=== PATIENT | female | born 1945 | race Caucasian/White ===

== ENCOUNTER 2018-03-17 06:09 | Day surgery (SDC) | payer BC ==
--- NOTE | 2018-03-14 07:59 | HP ---
DATE OF SURGERY: 03/17/2018 ANTICIPATED PROCEDURE: Screening colonoscopy. HISTORY OF PRESENT ILLNESS: Patient presents for screening. PAST MEDICAL HISTORY: Diabetes. ALLERGIES: PENICILLIN, SULFA. MEDICATIONS: See list. PAST SURGICAL HISTORY: Tubal ligation. Sinus. Bunion. SOCIAL HISTORY: Negative. FAMILY HISTORY: Negative. PHYSICAL EXAMINATION: VITAL SIGNS: Normal. CHEST: Clear. COR: Regular. IMPRESSION: The patient has had polyps before and presents for screening five year follow up.
[2018-03-17] MEDS ORDERED: DEMEROL 50 MG IJ ONE (06:10)
[2018-03-17] MEDS ORDERED: VERSED 5 MG/5 ML IV ONE (06:10)
[2018-03-17] MEDS ORDERED: Lactated Ringers 1,000 ML IV SCH (06:30)
[2018-03-17] MEDS ORDERED: GlucaGen 1 MG ONE (09:00)
[2018-03-17 10:50] VITALS: O2SAT 94
[2018-03-17 11:09] VITALS: BP 143/71; PULSE 71
--- NOTE | 2018-03-18 09:50 | OP ---
SURGERY DATE/TIME: 03/17/2018 0846 PREOPERATIVE DIAGNOSIS: Screening. POSTOPERATIVE DIAGNOSIS: Normal. PROCEDURE: Colonoscopy complete to cecum. SURGEON: Tal Marmolejo M.D. ANESTHESIA: IV sedation, 15 minutes monitored. COMPLICATIONS: None. CONDITION: Stable. INDICATION: A patient requiring evaluation. DESCRIPTION OF PROCEDURE: Taken to endoscopy. Time out performed. Anal digital examination satisfactory. Scope introduced. Scope advanced to the cecum. Base of cecum, ileocecal valve and appendiceal orifice normal. Ascending, hepatic, transverse, splenic, descending, sigmoid, rectum, anus satisfactory. The patient tolerated the procedure satisfactorily.
== END 2018-03-17 10:55 | disposition home or self-care (01) ==
LOC: SDC 06:09
PROVIDERS: ATTEND Surgery
DX: Z12.11 Encounter for screening for malignant neoplasm of colon (principal); Z86.010 Personal history of colon polyps
CPT/HCPCS: 82962; 94250; G0105; J1610; J2175; J2250

== ENCOUNTER 2018-10-18 18:36 | Emergency (ER) | payer MEDICARE, OTHER ==
[2018-10-18] MEDS ORDERED: DUONEB 0.5-3 MG/3 ml Neb IH ONE ×2 (19:06→19:26)
[2018-10-18] MEDS ORDERED: APRESOLINE 20 MG/ML INJ IV ONE (19:08)
[2018-10-18 19:15] LABS: BASOPHIL % 0.5 % (0.0-0.4); Basophil (Absolute #) 0.05 (0-0.4); Eosinophil (Absolute #) 0.33 (0-0.5); Granulocyte Absolute (ANC) 7.06 (1.4-6.9); Granulocytes % 64.6 % (36.0-66.0); Hematocrit 41.9 % (35-47); Hemoglobin 14.3 gm/dl (12.0-16.0); Lymphocyte (Absolute #) 2.69 (1.0-4.6); Lymphocytes % 24.6 % (24.0-44.0); Mean Cell Volume 86.2 fl (78-100); Mean Corpuscular Hemoglobin 29.4 pg (26-32); Mean Corpuscular Hgb Concent. 34.1 g/dl (32-36); Mean Platelet Volume 9.9 fl (6-9.5); Monocytes % 7.3 % (0.0-12.0); Platelet Count 302 K/mm3 (150-450); Red Blood Count 4.86 M/mm3 (4.1-5.4); Red Cell Distribution Width 13.2 % (11.5-14.0); White Blood Count 10.9 K/mm3 (4.0-10.5)
[2018-10-18] MEDS ORDERED: APRESOLINE 20 MG/ML INJ ONE (19:22)
[2018-10-18 19:38] LABS: ALBUMIN 4.4 g/dL (3.5-5.0); ALKALINE PHOSPHATASE 95 U/L (38-126); ANION GAP 12.8 MEQ/L (5-15); BLOOD UREA NITROGEN 10 mg/dL (7-17); CHLORIDE 101 mmol/L (98-107); Calcium 10.3 mg/dL (8.4-10.2); Carbon Dioxide 29 mmol/L (22-30); Creatinine 1 0.62 mg/dL (0.52-1.04); Glucose 128 mg/dL (74-106); MAGNESIUM 1.9 mg/dL (1.6-2.3); NT PRO BNP 500 pg/mL (0-900); SGOT/AST 24 U/L (14-36); SGPT/ALT 16 U/L (0-35); SODIUM 139 mmol/L (137-145); Total Protein 7.6 g/dL (6.3-8.2)
[2018-10-18 19:45] LABS: Appearance CLEAR (CLEAR); Bilirubin NEGATIVE (NEGATIVE); Blood NEGATIVE Ery/ul (0-5); Epithelial Cells RARE /HPF (FEW); Glucose NEGATIVE (NEGATIVE); Ketones NEGATIVE (NEGATIVE); Leukocyte Esterase NEGATIVE (NEGATIVE); Nitrite NEGATIVE (NEGATIVE); Protein,Urine Dip 100 (Negative); Specific Gravity 1.004 (1.005-1.025); Urobilinogen NEGATIVE mg/dL (0-1); WBC 0-2 /HPF (0-5)
[2018-10-18] MEDS ORDERED: Lopressor 50 MG PO STA (21:41)
[2018-10-18] MEDS ORDERED: Lopressor 50 MG ONE (21:45)
[2018-10-18 23:43] VITALS: BP 172/56; PULSE 70
--- NOTE | 2018-10-18 23:47 | ERPHSYRPT ---
- History of Present Illness Historian: patient Exam Limitations: no limitations Patient Subjective Stated Complaint: pt here for a headache that developed into sob and high b/p about an hour ago. no cough or fever, no chest pain Triage Nursing Assessment: pt alert,walked in, resp easy, skin w/d/p. no cough, moves all ext well, no edema Physician History: Pt is a 73 y/o female with a h/o migraines, that developed chest pain and HTN urgency. She suffered from migraines today and she took 2 Imitrex tabs. The headache did not improve, and pt developed SOB and chest pain. She took her BP and her SBP was in the 240s, at that point, pt presented to the ED. Pt denies N /V/D or abdominal pain. She is SOB, and is FRIAS. Pt has no F/C/S. No sick contacts. She has no cardiac history besides HTN. Activities at Onset: none Quality: aching, tightness Location: central Chest Pain Radiation: no radiation Severity of Pain-Max: moderate Severity of Pain-Current: none Modifying Factors: Improves With: rest Associated Symptoms: shortness of breath, headache Prior Chest Pain/Cardiac Workup: no prior chest pain Aspirin Treatment Today: 81 mg x 2 Allergies/Adverse Reactions: adhesive Allergy (Verified 10/18/18 18:46) Penicillins Allergy (Verified 10/18/18 18:46) Hives sulfamethoxazole [From Bactrim] Allergy (Verified 10/18/18 18:46) Hives scopolamine Adverse Reaction (Verified 10/18/18 18:46) confusion Home Medications: Aspirin 81 gm Chew [Baby Aspirin 81 mg Chew] 81 mg PO QPM 12/19/13 [ History] Biotin 1,000 mg PO QPM 12/19/13 [History] Ezetimibe/Simvastatin [Vytorin 10-40 mg Tablet] 1 each PO QPM 12/19/13 [History] Insulin Aspart [NovoLOG Insulin] 40 unit SQ DAILY 12/19/13 [History] Losartan Potassium [Cozaar 100Mg Tablet] 100 mg PO QPM 12/19/13 [History] Metoprolol Succinate 50 mg [Toprol Xl 50 MG] 50 mg PO BID 12/19/13 [ History] Multivitamin [Vitamins For Hair] 1 each PO DAILY 12/19/13 [History] SUMAtriptan succinate [Imitrex] 100 mg PO UD 12/19/13 [History] Calcium Carbonate/Vitamin D3 [Caltrate 600 Plus D3 Tablet] 1 tab PO QPM [History] Alendronate Sodium 70 mg [Fosamax 70 MG] 70 mg PO WEEKLY 02/11/18 [History ] Ergocalciferol (Vitamin D2) [Vitamin D2] 50,000 unit PO Q7D 02/11/18 [History] Insulin Glargine,Hum.rec.anlog [Basaglar Kwikpen U-100] 44 unit SQ HS 02/11/18 [ History] Levothyroxine Sodium 50 Mcg [Synthroid 50 Mcg] 50 mcg PO DAILY 02/11/18 [ History] Paroxetine HCl 20 mg [Paxil 20 MG] 20 mg PO DAILY 02/11/18 [History] Pravastatin Sodium [Pravachol] 80 mg PO DAILY 02/11/18 [History] Hx Tetanus, Diphtheria Vaccination/Date Given: Yes Hx Influenza Vaccination/Date Given: Yes Hx Pneumococcal Vaccination/Date Given: Yes Immunizations Up to Date: Yes - Review of Systems Constitutional: No Fever, No Chills Eyes: No Symptoms Ears, Nose, & Throat: No Symptoms Respiratory: Dyspnea, Dyspnea on Exertion (FRIAS), No Cough Cardiac: No Chest Pain, No Edema, No Syncope Abdominal/Gastrointestinal: No Abdominal Pain, No Nausea, No Vomiting, No Diarrhea Genitourinary Symptoms: No Dysuria Musculoskeletal: No Back Pain, No Neck Pain Neurological: Headache - Past Medical History Pertinent Past Medical History: Yes Neurological History: Migraines ENT History: Cataracts Cardiac History: High Cholesterol, Hypertension Respiratory History: Sleep Apnea Endocrine Medical History: Diabetes Type I, Hypothyroidism Musculoskeletal History: Fractures GI Medical History: No Pertinent History, Other History: No Pertinent History Psycho-Social History: Depression Female Reproductive Disorders: No Pertinent History Other Medical History: does use a c-pap - Past Surgical History Past Surgical History: Yes Neuro Surgical History: No Pertinent History Cardiac: No Pertinent History Respiratory: No Pertinent History Gastrointestinal: No Pertinent History Genitourinary: No Pertinent History Musculoskeletal: No Pertinent History Female Surgical History: Tubal Ligation Other Surgical History: BUNIONS REMOVED CYST REMOVED FROM BACK. 5 surgeries to left ankle, colonoscopy hx of polyps - Social History Smoking Status: Former smoker Exposure to second hand smoke: Yes Drug Use: none Patient Lives Alone: No - Female History Hx Last Menstrual Period: post Hx Now: No - Nursing Vital Signs Nursing Vital Signs: Initial Vital Signs Temperature 97 F 10/18/18 18:37 Pulse Rate 85 10/18/18 18:37 Respiratory Rate 18 10/18/18 18:37 Blood Pressure 211/90 10/18/18 18:37 O2 Sat by Pulse Oximetry 96 10/18/18 18:37 Pain Scale Pain Intensity 5 - Physical Exam General Appearance: no apparent distress, alert Eye Exam: PERRL/EOMI, eyes nml inspection Ears, Nose, Throat Exam: normal ENT inspection, moist mucous membranes Neck Exam: normal inspection, non-tender, supple, full range of motion Respiratory Exam: normal breath sounds, lungs clear, No respiratory distress Cardiovascular Exam: regular rate/rhythm, normal heart sounds Gastrointestinal/Abdomen Exam: soft, No tenderness, No mass Back Exam: normal inspection, No CVA tenderness, No vertebral tenderness Extremity Exam: normal inspection, normal range of motion Neurologic Exam: alert, oriented x 3, cooperative, normal mood/affect, sensation nml, No motor deficits Skin Exam: normal color, warm, dry SpO2: 95 - Radiology Exams Chest X-ray Interpretation: Interpreted by me (No PNA, or PTX. Some vascular prominence) - CT Exams Chest CT Interpretation: Tele-radiologist Report (No PE. No PNA. Scattered fibrosis and scarring) Ordered Tests: Active Orders 24 hr Category Date Time Status EKG-ER Only STAT Care 10/18/18 19:06 Active CHEST 2 VIEWS (PA AND LAT) Stat Exams 10/18/18 19:07 Taken CHEST WITH CONTRAST [CT] Stat Exams 10/18/18 20:14 Taken CBC W DIFF Stat Lab 10/18/18 19:16 Completed CMP Stat Lab 10/18/18 19:16 Completed D-DIMER QUANTITATION Stat Lab 10/18/18 19:16 Completed MAGNESIUM Stat Lab 10/18/18 19:16 Completed NT PRO BNP Stat Lab 10/18/18 19:16 Completed TROPONIN Q3H Lab 10/18/18 19:16 Completed TROPONIN Q3H Lab 10/18/18 22:11 Completed TROPONIN Q3H Lab 10/19/18 01:15 Ordered TROPONIN Q3H Lab 10/19/18 04:15 Ordered TROPONIN Q3H Lab 10/19/18 07:15 Ordered UA W/RFX UR CULTURE Stat Lab 10/18/18 19:45 Completed Respiratory Therapy Assessment DAILY RT 10/18/18 20:04 Completed Medication Summary Discontinued Medications Generic Name Dose Route Start Last Admin Trade Name Janq PRN Reason Stop Dose Admin Albuterol/Ipratropium 3 ml 10/18/18 19:06 10/18/18 19:52 Duoneb 0.5-3 Mg/3 Ml Neb IH 10/18/18 19:07 3 ml STAT ONE Administration Albuterol/Ipratropium Confirm 10/18/18 19:26 Duoneb 0.5-3 Mg/3 Ml Neb Administered 10/18/18 19:27 Dose 3 ml IH .STK-MED ONE Hydralazine HCl 20 mg 10/18/18 19:08 10/18/18 19:25 Apresoline 20 Mg/Ml Inj IV 10/18/18 19:09 20 mg STAT ONE Administration Hydralazine HCl Confirm 10/18/18 19:22 Apresoline 20 Mg/Ml Inj Administered 10/18/18 19:23 Dose 20 mg .ROUTE .STK-MED ONE Metoprolol Tartrate 50 mg 10/18/18 21:41 10/18/18 21:46 Lopressor 50 Mg PO 10/18/18 21:42 50 mg ONCE STA Administration Metoprolol Tartrate Confirm 10/18/18 21:45 Lopressor 50 Mg Administered 10/18/18 21:46 Dose 50 mg .ROUTE .STK-MED ONE Lab/Rad Data: Laboratory Result Diagrams 10/18/18 19:16 10/18/18 19:16 Laboratory Results 10/18/18 10/18/18 10/18/18 Range/Units 22:11 19:45 19:16 WBC (4.0-10.5) K/mm3 RBC (4.1-5.4) M/mm3 Hgb (12.0-16.0) gm/dl Hct (35-47) % MCV (78-100) fl MCH (26-32) pg MCHC (32-36) g/dl RDW (11.5-14.0) % Plt Count (150-450) K/mm3 MPV (6-9.5) fl Gran % (36.0-66.0) % Eos # (Auto) (0-0.5) Absolute Lymphs (auto) (1.0-4.6) Absolute Monos (auto) (0.0-1.3) Lymphocytes % (24.0-44.0) % Monocytes % (0.0-12.0) % Eosinophils % (0.00-5.0) % Basophils % (0.0-0.4) % Absolute Granulocytes (1.4-6.9) Basophils # (0-0.4) D-Dimer (215-500) ng/mL Sodium (137-145) mmol/L Potassium (3.5-5.1) mmol/L Chloride (98-107) mmol/L Carbon Dioxide (22-30) mmol/L Anion Gap (5-15) MEQ/L BUN (7-17) mg/dL Creatinine (0.52-1.04) mg/dL Estimated GFR ML/MIN Glucose (74-106) mg/dL Calcium (8.4-10.2) mg/dL Magnesium (1.6-2.3) mg/dL Total Bilirubin (0.2-1.3) mg/dL AST (14-36) U/L ALT (0-35) U/L Alkaline Phosphatase (38-126) U/L Troponin I < 0.012 < 0.012 (0.000-0.034) ng/mL NT-Pro-B Natriuret Pep (0-900) pg/mL Serum Total Protein (6.3-8.2) g/dL Albumin (3.5-5.0) g/dL Urine Color STRAW (YELLOW) Urine Appearance CLEAR (CLEAR) Urine pH 8.0 (5-6) Ur Specific [place] 1.004 (1.005-1.025) Urine Protein 100 (Negative) Urine Ketones NEGATIVE (NEGATIVE) Urine Blood NEGATIVE (0-5) Juma/ul Urine Nitrite NEGATIVE (NEGATIVE) Urine Bilirubin NEGATIVE (NEGATIVE) Urine Urobilinogen NEGATIVE (0-1) mg/dL Ur Leukocyte Esterase NEGATIVE (NEGATIVE) Urine WBC (Auto) 0-2 (0-5) /HPF Urine RBC (Auto) NONE (0-2) /HPF U Epithel Cells (Auto) RARE (FEW) /HPF Urine Bacteria (Auto) NONE (NEGATIVE) /HPF Urine Culture Reflexed NO (NO) Urine Glucose NEGATIVE (NEGATIVE) mg/dL 10/18/18 10/18/18 10/18/18 Range/Units 19:16 19:16 19:16 WBC 10.9 H (4.0-10.5) K/mm3 RBC 4.86 (4.1-5.4) M/mm3 Hgb 14.3 (12.0-16.0) gm/dl Hct 41.9 (35-47) % MCV 86.2 (78-100) fl MCH 29.4 (26-32) pg MCHC 34.1 (32-36) g/dl RDW 13.2 (11.5-14.0) % Plt Count 302 (150-450) K/mm3 MPV 9.9 H (6-9.5) fl Gran % 64.6 (36.0-66.0) % Eos # (Auto) 0.33 (0-0.5) Absolute Lymphs (auto) 2.69 (1.0-4.6) Absolute Monos (auto) 0.80 (0.0-1.3) Lymphocytes % 24.6 (24.0-44.0) % Monocytes % 7.3 (0.0-12.0) % Eosinophils % 3.0 (0.00-5.0) % Basophils % 0.5 (0.0-0.4) % Absolute Granulocytes 7.06 H (1.4-6.9) Basophils # 0.05 (0-0.4) D-Dimer 619 H* (215-500) ng/mL Sodium 139 (137-145) mmol/L Potassium 4.0 (3.5-5.1) mmol/L Chloride 101 (98-107) mmol/L Carbon Dioxide 29 (22-30) mmol/L Anion Gap 12.8 (5-15) MEQ/L BUN 10 (7-17) mg/dL Creatinine 0.62 (0.52-1.04) mg/dL Estimated GFR > 60.0 ML/MIN Glucose 128 H (74-106) mg/dL Calcium 10.3 H (8.4-10.2) mg/dL Magnesium 1.9 (1.6-2.3) mg/dL Total Bilirubin 0.60 (0.2-1.3) mg/dL AST 24 (14-36) U/L ALT 16 (0-35) U/L Alkaline Phosphatase 95 (38-126) U/L Troponin I (0.000-0.034) ng/mL NT-Pro-B Natriuret Pep 500 (0-900) pg/mL Serum Total Protein 7.6 (6.3-8.2) g/dL Albumin 4.4 (3.5-5.0) g/dL Urine Color (YELLOW) Urine Appearance (CLEAR) Urine pH (5-6) Ur Specific [place] (1.005-1.025) Urine Protein (Negative) Urine Ketones (NEGATIVE) Urine Blood (0-5) Juma/ul Urine Nitrite (NEGATIVE) Urine Bilirubin (NEGATIVE) Urine Urobilinogen (0-1) mg/dL Ur Leukocyte Esterase (NEGATIVE) Urine WBC (Auto) (0-5) /HPF Urine RBC (Auto) (0-2) /HPF U Epithel Cells (Auto) (FEW) /HPF Urine Bacteria (Auto) (NEGATIVE) /HPF Urine Culture Reflexed (NO) Urine Glucose (NEGATIVE) mg/dL - Progress Progress: improved Air Movement: good Progress Note: 10/18/18 23:50 Pt had lab work up that included EKG, labs, troponins and CXR. All were negative. D Dimer was elevated and CT for PE study was done, that showed no PE and no PNA, There was some scarring and fibrosis. Pt did get Hydralazine 20mg IV that helped her, and her home dose of Metoprolol 50mg PO, was given. When second Troponin was negative as well, and pt was stable, she was d/c to home. Pt should f/u with her PCP to adjust her BP meds, for better control. Blood Culture(s) Obtained: No Antibiotics given: No Discussed with : Lissett Will see patient in: office Counseled pt/family regarding: need for follow-up - Departure Departure Disposition: Home Clinical Impression: Hypertensive crisis Condition: Stable Critical Care Time: No Referrals: MARILYN BEACH [Primary Care Provider] - Additional Instructions: F/U with PCP for better BP control, and meds adjustments.
[2018-10-18 23:48] VITALS: O2SAT 95
--- NOTE | 2018-10-19 08:52 | XRAY ---
Indication: Short of breath. Comparison: November 03, 2010. PA/lateral chest hyperinflated and clear. Heart and mediastinal structures within normal limits. Bony thorax intact with minimal degenerative changes. Impression: Nonacute hyperinflated chest.
--- NOTE | 2018-10-19 08:52 | XRAY ---
Indication: Dyspnea on exertion. Hypertension. Headache. Elevated d-dimer. Multiple contiguous axial images obtained through the chest using 80 cc Isovue 370 contrast and PE protocol. Comparison: None There is good opacification of the pulmonary arteries to include the lobar and segmental branches. No filling defect or pulmonary embolus. Heart is not enlarged. Aorta minimally arteriosclerotic without aneurysm/dissection. No pathologic mediastinal/hilar lymphadenopathy. Small hiatal hernia. Examination of the lung parenchyma demonstrates hyperinflated lungs with mild bilateral dependent atelectasis and mild scattered fibrosis/scarring bilaterally. No suspicious pulmonary mass, infiltrate, or effusion. Bony thorax intact with mild degenerative changes throughout the spine. Limited upper abdomen demonstrates mild fatty liver and hepatic/splenic calcified granulomas. Impression: 1. Negative pulmonary embolus. No acute cardiopulmonary abnormalities. 2. Scattered fibrosis/scarring, small hiatal hernia, fatty liver, and evidence for old granulomatous disease. CT DI 19.72
== END 2018-10-19 00:03 | disposition home or self-care (01) ==
LOC: ED 18:36
DX: I16.9 Hypertensive crisis, unspecified (principal); G43.909 Migraine, unspecified, not intractable, without status migrainosus; E10.9 Type 1 diabetes mellitus without complications; E03.9 Hypothyroidism, unspecified; F32.9 Major depressive disorder, single episode, unspecified; Z86.010 Personal history of colon polyps; I10 Essential (primary) hypertension
CPT/HCPCS: 36000; 36415; 71046; 71260; 80053; 81001; 83735; 83880; 84484; 85025; 85379; 93005; 94640; 96374; 99284; J0360; A9270-GY

== ENCOUNTER 2021-09-23 06:20 | Day surgery (SDC) | payer MEDICARE, OTHER ==
[2021-09-23] MEDS ORDERED: Lactated Ringers 1,000 ML IV SCH (06:30)
[2021-09-23] MEDS ORDERED: Xylocaine-Mpf 2% 5 Ml Vial ONE (07:26)
[2021-09-23] MEDS ORDERED: DIPRIVAN 200 MG/20 ML IV ONE (07:26)
[2021-09-23] MEDS ORDERED: Versed 2 MG/2 ML Injection ONE (07:26)
[2021-09-23 08:30] VITALS: O2SAT 97
[2021-09-23 08:38] VITALS: PULSE 62
[2021-09-23 09:00] VITALS: BP 126/57
--- NOTE | 2021-09-23 13:19 | OP ---
SURGERY DATE/TIME: 09/23/2021 0729 PREOPERATIVE DIAGNOSIS: History of colon polyps. POSTOPERATIVE DIAGNOSIS: Mild sigmoid diverticulosis otherwise normal colon. PROCEDURE: Colonoscopy. SURGEON: Dr. Contreras. ANESTHESIA: MAC. Medications given by anesthesia department. HISTORY: The patient is a 76-year-old white female presenting now for colonoscopic evaluation. She reports she had colon polyps removed approximately five years ago. She is here for repeat examination. She was appraised of the risks of the procedure including the risk of perforation, phlebitis, untoward reaction to medication, bleeding and missed lesions. The patient verbalized her understanding and desired to have the procedure performed. DESCRIPTION OF PROCEDURE: The patient was given the medications by the anesthesia department. She had continuous pulse oximetry, ECG monitoring and intermittent blood pressure monitoring during the examination. She was placed in the left lateral decubitus position. A digital rectal examination was performed and revealed normal anal sphincter tone and no masses. The flexible Olympus pediatric colonoscope was used to intubate the rectum. A view of the colon was developed sequentially to the cecum. Upon insertion and withdrawal there was noted a few small diverticula in the sigmoid colon otherwise no mucosal lesions were encountered. The scope was removed from the patient who tolerated the procedure well and was sent back to OP recovery in good condition. The prep was noted to be fair to good.
== END 2021-09-23 09:05 | disposition home or self-care (01) ==
LOC: SDC 06:20
PROVIDERS: ATTEND Family Medicine
DX: K57.30 Diverticulosis of large intestine without perforation or abscess without bleeding (principal); Z09 Encounter for follow-up examination after completed treatment for conditions other than malignant neoplasm; Z86.010 Personal history of colon polyps; E11.9 Type 2 diabetes mellitus without complications
CPT/HCPCS: 82947; 99100; J2250; J2704

== ENCOUNTER 2023-07-02 22:24 | Emergency (ER) | payer MEDICARE, OTHER ==
--- NOTE | 2023-07-02 22:31 | ERPHSYRPT ---
- History of Present Illness Time Seen by Provider: 07/02/23 22:31 Source: patient, family Exam Limitations: no limitations Physician History: This is a 78-year-old overweight white female patient of Dr. 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 When she went to get up she fell injuring her right foot and ankle and having tenderness in her right hip. She was able to walk after she fell. This occurred earlier this evening. Patient did not hit her head. She did not injure her neck. She had no loss of consciousness. Patient has had surgery in her feet and ankles in the past. Patient has a history of gastroesophageal reflux disease, hyperlipidemia, migraine headache, hypothyroidism, hypertension, insulin-dependent diabetes Method of Injury: fell, twisted Occurred: this evening Quality: aching Severity of Pain-Max: mild (Moderate) Severity of Pain-Current: mild (Moderate) Lower Extremities Pain: hip: right, foot: right, ankle: right Modifying Factors: Improves With: movement Associated Symptoms: other (Patient is able to bear weight) Allergies/Adverse Reactions: adhesive Allergy (Verified 07/02/23 22:30) Penicillins Allergy (Verified 07/02/23 22:30) Hives sulfamethoxazole [From Bactrim] Allergy (Verified 07/02/23 22:30) Hives scopolamine Adverse Reaction (Verified 07/02/23 22:30) confusion Home Medications: Aspirin 81 gm Chew [Baby Aspirin 81 mg Chew] 81 mg PO QPM 12/19/13 [History] Biotin 1,000 mg PO QPM 12/19/13 [History] Ezetimibe/Simvastatin [Vytorin 10-40 mg Tablet] 1 each PO DAILY 12/19/13 [History] Insulin Aspart [NovoLOG Insulin] 12 unit SQ TID 12/19/13 [History] Losartan Potassium [Cozaar 100Mg Tablet] 100 mg PO QPM 12/19/13 [History] Metoprolol Succinate 50 mg [Toprol Xl 50 MG] 50 mg PO BID 12/19/13 [History] Multivit-Min/Folic Acid/Biotin [Vitamins For Hair Capsule] 1 each PO DAILY 12/19/13 [History] SUMAtriptan succinate [Imitrex] 100 mg PO UD 12/19/13 [History] Calcium Carbonate/Vitamin D3 [Caltrate 600 Plus D3 Tablet] 1 tab PO QPM 09/27/14 [History] Alendronate Sodium 70 mg [Fosamax 70 MG] 70 mg PO WEEKLY 02/11/18 [History] Ergocalciferol (Vitamin D2) [Vitamin D2] 50,000 unit PO Q7D 02/11/18 [History] Insulin Glargine,Hum.rec.anlog [Basaglar Kwikpen U-100] 44 unit SQ HS 02/11/18 [History] Levothyroxine Sodium 50 Mcg [Synthroid 50 Mcg] 50 mcg PO DAILY 02/11/18 [History] Paroxetine HCl 20 mg [Paxil 20 MG] 20 mg PO DAILY 02/11/18 [History] Pravastatin Sodium [Pravachol] 80 mg PO DAILY 02/11/18 [History] Aripiprazole [Abilify] 5 mg PO DAILY 09/19/21 [History] Famotidine [Pepcid] 40 mg PO DAILY 09/19/21 [History] Furosemide 40 mg [Lasix 40 MG] 40 mg PO DAILY 09/19/21 [History] Gabapentin 200 mg PO DAILY 09/19/21 [History] Omeprazole Magnesium [Prilosec Otc] 20 mg PO DAILY 09/19/21 [History] Potassium Chloride 8 meq PO DAILY 09/19/21 [History] Sildenafil Citrate [Viagra] 25 mg PO DAILY 09/19/21 [History] Tumeric/Ging/Switzer/Oreg/Capryl [Candicidal Capsule] 1 tab PO DAILY 09/19/21 [ History] Hx Tetanus, Diphtheria Vaccination/Date Given: Yes Hx Influenza Vaccination/Date Given: Yes Hx Pneumococcal Vaccination/Date Given: Yes Travel Risk - International Travel Have you traveled outside of the country in past 3 weeks: No - Coronavirus Screening Are you exhibiting any of the following symptoms?: No Close contact with a COVID-19 positive Pt in past 14-21 Days: No - Review of Systems Constitutional: No Symptoms Eyes: No Symptoms Ears, Nose, & Throat: No Symptoms Respiratory: No Symptoms Cardiac: No Symptoms Abdominal/Gastrointestinal: No Symptoms, Appetite Changes Musculoskeletal: Fall, Injury (Right foot and ankle, right hip) Skin: No Symptoms Neurological: No Symptoms Psychological: No Symptoms Endocrine: No Symptoms Hematologic/Lymphatic: No Symptoms Immunological/Allergic: No Symptoms All Other Systems: Reviewed and Negative - Past Medical History Pertinent Past Medical History: Yes Neurological History: Migraines ENT History: Cataracts Cardiac History: High Cholesterol, Hypertension Respiratory History: Other Endocrine Medical History: Diabetes Type I, Hypothyroidism Musculoskeletal History: Arthritis GI Medical History: No Pertinent History, Other History: No Pertinent History Psycho-Social History: Depression Female Reproductive Disorders: No Pertinent History Other Medical History: Pulmonary HTN - Past Surgical History Past Surgical History: Yes Neuro Surgical History: No Pertinent History Cardiac: No Pertinent History Respiratory: No Pertinent History Gastrointestinal: No Pertinent History Genitourinary: No Pertinent History Musculoskeletal: No Pertinent History Female Surgical History: Tubal Ligation Other Surgical History: BUNIONS REMOVED CYST REMOVED FROM BACK. 5 surgeries to left ankle, colonoscopy hx of polyps, EGD - Social History Smoking Status: Former smoker Exposure to second hand smoke: Yes Drug Use: none Patient Lives Alone: No - Nursing Vital Signs Nursing Vital Signs: Initial Vital Signs Temperature 98.1 F 07/02/23 22:31 Pulse Rate 72 07/02/23 22:31 Respiratory Rate 18 07/02/23 22:31 Blood Pressure 172/80 07/02/23 22:31 O2 Sat by Pulse Oximetry 98 07/02/23 22:31 Pain Scale Pain Intensity 7 - Physical Exam General Appearance: no apparent distress, alert, anxiety, obese Eyes, Ears, Nose, Throat Exam: normal ENT inspection, moist mucous membranes Neck Exam: normal inspection, non-tender, supple, full range of motion Cardiovascular/Respiratory Exam: chest non-tender, no respiratory distress Gastrointestinal/Abdominal Exam: non-tender Hips Exam: right: soft tissue tenderness, left: non-tender, bilateral: normal inspection, normal range of motion, no evidence of injury Legs Exam: bilateral leg: non-tender, normal inspection, normal range of motion, no evidence of injury Knees Exam: bilateral knee: non-tender, normal inspection, normal range of motion, no evidence of injury Ankle Exam: right ankle: soft tissue tenderness, left ankle: non-tender, bilateral ankle: normal inspection, normal range of motion, no evidence of injury Foot Exam: right foot: soft tissue tenderness, left foot: non-tender, bilateral foot: normal inspection, normal range of motion, no evidence of injury Neuro/Tendon Exam: normal sensation, normal motor functions, normal tendon functions, responds to pain, no evidence tendon injury Mental Status Exam: alert, oriented x 3, cooperative Skin Exam: normal color, warm, dry SpO2 Interpretation: normal O2 Delivery: Room Air - Course Nursing assessment & vital signs reviewed: Yes Ordered Tests: Active Orders 24 hr Category Date Time Status Cold Application STAT Care 07/02/23 22:39 Active ANKLE (3 VIEWS) Stat Exams 07/02/23 22:29 Taken FOOT (MINIMUM 3 VIEWS) Stat Exams 07/02/23 22:29 Taken HIP UNI (2V) INCL PEL IF DONE Stat Exams 07/02/23 22:41 Ordered - Departure Clinical Impression: Right hip pain, Pain in joint involving right ankle and foot Condition: Stable Critical Care Time: No Referrals: JOSÉ WILLIS DO [Primary Care Provider] - Follow up/PCP as directed Additional Instructions: Ice pack to tender areas 3 times a day for the next 48 hours. If there are no contraindications, may use Tylenol and ibuprofen 3 times a day. If your pain persist beyond 48 hours, you may follow-up with your peanut roaster. The other option is for you to follow-up with the [facility] orthopedic clinic Wednesday through Wednesday 8 AM to 10 AM. It is a walk-in clinic and you do not need to have a scheduled appointment
[2023-07-02 22:49] VITALS: RESP 18; TEMP 98.1
[2023-07-02] MEDS: NORCO 5/325 MG PO ONE (23:08)
[2023-07-02] MEDS ORDERED: NORCO 5/325 MG ONE (23:08)
[2023-07-02 23:16] VITALS: BP 110/53; PULSE 68; O2SAT 96
--- NOTE | 2023-07-03 08:10 | XRAY ---
Indication: Pain following fall. Comparison: None 2 view right hip demonstrates osteopenia. No other bony, articular, or soft tissue abnormalities.
--- NOTE | 2023-07-03 08:10 | XRAY ---
Indication: Pain following fall. Comparison: None 3 view right ankle demonstrates osteopenia, mild soft tissue swelling, and distal 1st metatarsal orthopedic screw. No other bony, articular, or soft tissue abnormalities.
--- NOTE | 2023-07-03 08:12 | XRAY ---
Indication: Pain following fall. Comparison: None 3 nonweightbearing views right foot demonstrates osteopenia and intact distal 1st metatarsal orthopedic screw presumed from bunionectomy. No other bony, articular, or soft tissue abnormalities.
== END 2023-07-02 23:25 | disposition home or self-care (01) ==
LOC: ED 22:24
DX: M25.571 Pain in right ankle and joints of right foot (principal); M25.551 Pain in right hip; E78.5 Hyperlipidemia, unspecified; I10 Essential (primary) hypertension; E10.9 Type 1 diabetes mellitus without complications; Z79.4 Long term (current) use of insulin; Z79.899 Other long term (current) drug therapy
CPT/HCPCS: 73502; 73610; 73630; 99283; A9270-GY

== ENCOUNTER 2024-02-28 15:27 | Observation (INO) | payer MEDICARE, OTHER ==
--- NOTE | 2024-02-28 16:13 | ERPHSYRPT ---
- History of Present Illness Time Seen by Provider: 02/28/24 15:42 Patient Subjective Stated Complaint: C/O fall at home. Patient hit her head and is c/o mid back pain. Indicates her blood sugar dropped after taking 18 units of insulin and not eating. Triage Nursing Assessment: Patient arrived by ambulance. She is wearing a c- collar. She is alert and oriented. No SOB. Skin tone normal. Accucheck per ER glucometer 102 at 1540. Physician History: Patient brought to the ER by EMS after fall at home. Patient states that she took 18 units of insulin and did not eat so her blood sugar dropped and she fell. She hit the back of the head and she thinks that she may have passed out. Patient complains of the mid and low back pain. No other injuries or pain. Patient alert and oriented. Blood sugar normal in the ER. Occurred: just prior to arrival Reason for Fall: fainted Injuries/Pain Location: head, back Loss of Consciousness: brief (seconds) Quality: sharpness Severity of Pain-Max: moderate Severity of Pain-Current: moderate Modifying Factors: Improves With: movement Associated Symptoms (Fall): back pain, lightheadedness, No abdominal pain, No chest pain, No dizziness, No extremity injury, No headache Allergies/Adverse Reactions: adhesive Allergy (Verified 02/28/24 15:41) Penicillins Allergy (Verified 02/28/24 15:41) Hives sulfamethoxazole [From Bactrim] Allergy (Verified 02/28/24 15:41) Hives scopolamine Adverse Reaction (Verified 02/28/24 15:41) confusion Home Medications: Aspirin 81 gm Chew [Baby Aspirin 81 mg Chew] 81 mg PO QPM 12/19/13 [History] Biotin 1,000 mg PO QPM 12/19/13 [History] Ezetimibe/Simvastatin [Vytorin 10-40 mg Tablet] 1 each PO DAILY 12/19/13 [History] Insulin Aspart [NovoLOG Insulin] 12 unit SQ TID 12/19/13 [History] Losartan Potassium [Cozaar 100Mg Tablet] 100 mg PO QPM 12/19/13 [History] Metoprolol Succinate 50 mg [Toprol Xl 50 MG] 50 mg PO BID 12/19/13 [History] Multivit-Min/Folic Acid/Biotin [Vitamins For Hair Capsule] 1 each PO DAILY 12/19/13 [History] SUMAtriptan succinate [Imitrex] 100 mg PO UD 12/19/13 [History] Calcium Carbonate/Vitamin D3 [Caltrate 600 Plus D3 Tablet] 1 tab PO QPM 09/27/14 [History] Alendronate Sodium 70 mg [Fosamax 70 MG] 70 mg PO WEEKLY 02/11/18 [History] Ergocalciferol (Vitamin D2) [Vitamin D2] 50,000 unit PO Q7D 02/11/18 [History] Insulin Glargine,Hum.rec.anlog [Basaglar Kwikpen U-100] 44 unit SQ HS 02/11/18 [History] Levothyroxine Sodium 50 Mcg [Synthroid 50 Mcg] 50 mcg PO DAILY 02/11/18 [History] Paroxetine HCl 20 mg [Paxil 20 MG] 20 mg PO DAILY 02/11/18 [History] Pravastatin Sodium [Pravachol] 80 mg PO DAILY 02/11/18 [History] Aripiprazole [Abilify] 5 mg PO DAILY 09/19/21 [History] Famotidine [Pepcid] 40 mg PO DAILY 09/19/21 [History] Furosemide 40 mg [Lasix 40 MG] 40 mg PO DAILY 09/19/21 [History] Gabapentin 200 mg PO DAILY 09/19/21 [History] Omeprazole Magnesium [Prilosec Otc] 20 mg PO DAILY 09/19/21 [History] Potassium Chloride 8 meq PO DAILY 09/19/21 [History] Sildenafil Citrate [Viagra] 25 mg PO DAILY 09/19/21 [History] Tumeric/Ging/[place]/Oreg/Capryl [Candicidal Capsule] 1 tab PO DAILY 09/19/21 [History] Hx Tetanus, Diphtheria Vaccination/Date Given: Yes Hx Influenza Vaccination/Date Given: Yes Hx Pneumococcal Vaccination/Date Given: Yes Immunizations Up to Date: Yes Travel Risk - International Travel Have you traveled outside of the country in past 3 weeks: No - Emerging Infectious Disease Are you exhibiting symptoms associated with any current EIDs: No - Review of Systems Constitutional: No Fever, No Chills Eyes: No Symptoms Ears, Nose, & Throat: No Symptoms Respiratory: No Cough, No Dyspnea Cardiac: No Chest Pain, No Edema, No Syncope Abdominal/Gastrointestinal: No Abdominal Pain, No Nausea, No Vomiting, No Diarrhea Genitourinary Symptoms: No Dysuria Musculoskeletal: Back Pain, No Neck Pain Skin: No Rash Neurological: Headache, Other (Possible syncope), No Dizziness, No Focal Weakness, No Sensory Changes Psychological: No Symptoms Endocrine: No Symptoms All Other Systems: Reviewed and Negative - Past Medical History Pertinent Past Medical History: Yes Neurological History: Migraines ENT History: Cataracts Cardiac History: High Cholesterol, Hypertension Respiratory History: Other Endocrine Medical History: Diabetes Type I, Hypothyroidism Musculoskeletal History: Arthritis GI Medical History: No Pertinent History, Other History: No Pertinent History Psycho-Social History: Depression Female Reproductive Disorders: No Pertinent History Other Medical History: Pulmonary HTN - Past Surgical History Past Surgical History: Yes Neuro Surgical History: No Pertinent History Cardiac: No Pertinent History Respiratory: No Pertinent History Gastrointestinal: No Pertinent History Genitourinary: No Pertinent History Musculoskeletal: No Pertinent History Female Surgical History: Tubal Ligation Other Surgical History: BUNIONS REMOVED CYST REMOVED FROM BACK - Social History Smoking Status: Former smoker Exposure to second hand smoke: Yes Drug Use: none Patient Lives Alone: No - Social Determinants of Health Will the patient participate in the screening: Yes Do you worry about a steady place to live?: No Do you have any problems with any of the following?: No known problems In the past 12 months,have you had to go without utilities?: No Transportation Issues: No Has anyone in your support network made you feel unsafe?: No Have you or anyone in your house had to go without enough: No - Nursing Vital Signs Nursing Vital Signs: Initial Vital Signs Temperature 97.6 F 02/28/24 15:27 Pain Scale Pain Intensity 5 - Neeta Coma Score Best Eye Response (Neeta): (4) open spontaneously Best Verbal Response (Neeta): (5) oriented Best Motor Response (Neeta): (6) obeys commands Neeta Total: 15 - Physical Exam General Appearance: no apparent distress, alert Head Injury: no evidence of injury Eye Exam: PERRL/EOMI ENT Exam: airway nml Neck Exam: trachea midline, full range of motion, normal inspection, c-collar in place (C-collar was removed by me in the ER after clinically ruling out cervical injury), other, No focal neuro deficit, No tenderness Respiratory/Chest Exam: normal breath sounds, No chest tenderness, No respiratory distress Cardiovascular Exam: normal heart sounds, regular rate/rhythm Gastrointestinal Exam: soft, No tenderness, No distention, No guarding, No ecchymosis Back Exam: normal inspection, other (Lower thoracic and lumbar area pain with muscle spasm. Painful range of motion. No bony point tenderness. No saddle anesthesia. No signs of cord compression.), No vertebral tenderness Extremity Exam: normal inspection, normal range of motion, pelvis stable, No deformities Neurologic Exam: alert, oriented x 3, cooperative, sensation nml, No motor deficits Skin Exam: normal color, warm, dry SpO2: 97 - Course Nursing assessment & vital signs reviewed: Yes - CT Exams Thoracic Spine CT Interpretation: Other (T4 fracture) Ordered Tests: Active Orders 24 hr Category Date Time Status EKG-ER Only STAT Care 02/28/24 15:49 Active HEAD WITHOUT CONTRAST [CT] Stat Exams 02/28/24 15:48 Completed LUMBAR SPINE W/O [CT] Stat Exams 02/28/24 15:48 Completed THORACIC SPINE W/O CONTRAST [CT] Stat Exams 02/28/24 15:48 Completed CBC W DIFF Stat Lab 02/28/24 17:01 Completed CMP Stat Lab 02/28/24 17:01 Completed POCT GLUCOSE Stat Lab 02/28/24 17:00 Completed TROPONIN Q4H Lab 02/28/24 17:01 Completed TROPONIN Q4H Lab 02/28/24 20:00 Ordered TROPONIN Q4H Lab 02/29/24 00:00 Ordered UA W/RFX UR CULTURE Stat Lab 02/28/24 18:28 Ordered Transfer Order Routine Transfer 02/28/24 Ordered Medication Summary Discontinued Medications Generic Name Dose Route Start Last Admin Trade Name Freq PRN Reason Stop Dose Admin Morphine Sulfate 2 mg 02/28/24 16:48 02/28/24 17:12 Morphine Sulfate 2 Mg/Ml Inj IM 02/28/24 16:49 2 mg STAT ONE Administration Morphine Sulfate Confirm 02/28/24 17:06 Morphine Sulfate 2 Mg/Ml Inj Administered 02/28/24 17:07 Dose 2 mg .ROUTE .STK-MED ONE Morphine Sulfate 2 mg 02/28/24 18:09 02/28/24 18:21 Morphine Sulfate 2 Mg/Ml Inj IV 02/28/24 18:10 2 mg STAT ONE Administration Morphine Sulfate Confirm 02/28/24 18:19 Morphine Sulfate 2 Mg/Ml Inj Administered 02/28/24 18:20 Dose 2 mg .ROUTE .STK-MED ONE Ondansetron HCl 4 mg 02/28/24 16:48 02/28/24 17:08 Zofran 4 Mg/Udtablet Orally Disintegrating PO 02/28/24 16:49 Not Given STAT ONE Ondansetron HCl 4 mg 02/28/24 17:07 02/28/24 17:10 Ondansetron Hcl 4 Mg/2 Ml Vial IV 02/28/24 17:08 4 mg STAT ONE Administration Ondansetron HCl Confirm 02/28/24 17:06 Ondansetron Hcl 4 Mg/2 Ml Vial Administered 02/28/24 17:07 Dose 4 mg .ROUTE .STK-MED ONE Lab/Rad Data: Laboratory Result Diagrams 02/28/24 17:01 02/28/24 17:01 Laboratory Results 02/28/24 02/28/24 02/28/24 Range/Units 17:01 17:01 17:01 WBC 15.1 H (3.98-10.04) x10^3/uL RBC 4.03 (3.93-5.22) x10^6/uL Hgb 11.9 (11.2-15.7) g/dL Hct 36.0 (34.1-44.9) % MCV 89.3 (79.4-94.8) fL MCH 29.5 (25.6-32.2) pg MCHC 33.1 (32.2-35.5) g/dL RDW 12.6 (11.7-14.4) % Plt Count 219 (182-369) x10^3/uL MPV 10.0 (9.4-12.3) fL Gran % 74.9 H (34.0-71.1) % Immature Gran % (Auto) 0.7 H (0.001-0.429) % Nucleat RBC Rel Count 0.0 (0.00-0.2) % Eos # (Auto) 0.31 (0.04-0.36) x10^3/uL Immature Gran # (Auto) 0.10 H (0.001-0.031) x10^3u/L Absolute Lymphs (auto) 2.16 (1.18-3.74) x10^3/uL Absolute Monos (auto) 1.13 H (0.24-0.86) x10^3/uL Absolute Nucleated RBC 0.00 (0.00-0.012) x10^3u/L Lymphocytes % 14.3 L (19.3-51.7) % Monocytes % 7.5 (4.7-12.5) % Eosinophils % 2.1 (0.7-5.8) % Basophils % 0.5 (0.1-1.2) % Absolute Granulocytes 11.28 H (1.56-6.13) x10^3/uL Basophils # 0.08 (0.01-0.08) x10^3/uL Sodium 142 (135-145) mmol/L Potassium 3.6 (3.5-5.1) mmol/L Chloride 103 (98-107) mmol/L Carbon Dioxide 27 (22-30) mmol/L Anion Gap 15.6 H (5-15) MEQ/L BUN 27 H (7-17) mg/dL Creatinine 1.23 H (0.52-1.04) mg/dL Estimated GFR 45.0 ML/MIN Glucose 131 H (74-106) mg/dL POC Glucometer (74 to 106) mg/dL Calcium 9.5 (8.4-10.2) mg/dL Total Bilirubin 0.70 (0.2-1.3) mg/dL AST 36 (14-36) U/L ALT 32 (0-35) U/L Alkaline Phosphatase 70 (38-126) U/L Troponin I < 0.012 (0.000-0.033) ng/mL Serum Total Protein 6.7 (6.3-8.2) g/dL Albumin 4.2 (3.5-5.0) g/dL 02/28/24 Range/Units 17:00 WBC (3.98-10.04) x10^3/uL RBC (3.93-5.22) x10^6/uL Hgb (11.2-15.7) g/dL Hct (34.1-44.9) % MCV (79.4-94.8) fL MCH (25.6-32.2) pg MCHC (32.2-35.5) g/dL RDW (11.7-14.4) % Plt Count (182-369) x10^3/uL MPV (9.4-12.3) fL Gran % (34.0-71.1) % Immature Gran % (Auto) (0.001-0.429) % Nucleat RBC Rel Count (0.00-0.2) % Eos # (Auto) (0.04-0.36) x10^3/uL Immature Gran # (Auto) (0.001-0.031) x10^3u/L Absolute Lymphs (auto) (1.18-3.74) x10^3/uL Absolute Monos (auto) (0.24-0.86) x10^3/uL Absolute Nucleated RBC (0.00-0.012) x10^3u/L Lymphocytes % (19.3-51.7) % Monocytes % (4.7-12.5) % Eosinophils % (0.7-5.8) % Basophils % (0.1-1.2) % Absolute Granulocytes (1.56-6.13) x10^3/uL Basophils # (0.01-0.08) x10^3/uL Sodium (135-145) mmol/L Potassium (3.5-5.1) mmol/L Chloride (98-107) mmol/L Carbon Dioxide (22-30) mmol/L Anion Gap (5-15) MEQ/L BUN (7-17) mg/dL Creatinine (0.52-1.04) mg/dL Estimated GFR ML/MIN Glucose (74-106) mg/dL POC Glucometer 122 H (74 to 106) mg/dL Calcium (8.4-10.2) mg/dL Total Bilirubin (0.2-1.3) mg/dL AST (14-36) U/L ALT (0-35) U/L Alkaline Phosphatase (38-126) U/L Troponin I (0.000-0.033) ng/mL Serum Total Protein (6.3-8.2) g/dL Albumin (3.5-5.0) g/dL - Progress Progress Note: 02/28/24 18:29 Patient has a persistent pain with acute T4 fracture. I discussed with the hospitalist. Will admit her for pain control Discussed with DrSusy: Other (Discussed with Dr. Mayo. He agreed with admission) Will see patient in: hospital (observation) Counseled pt/family regarding: diagnosis, rad results - Departure Departure Disposition: Observation Clinical Impression: Fall on same level Qualifiers: Encounter type: initial encounter Qualified Code(s): W18.30XA - Fall on same level, unspecified, initial encounter T4 vertebral fracture Qualifiers: Encounter type: initial encounter Fracture morphology: other fracture Condition: Stable Critical Care Time: No Referrals: JOSÉ WILLIS DO [Primary Care Provider] - Follow up/PCP as directed
--- NOTE | 2024-02-28 16:55 | XRAY ---
Indication: Head injury following fall. Multiple contiguous axial images obtained through the head without contrast. Comparison: None Age-appropriate global atrophy and minimal periventricular degenerative micro-ischemia. No acute intracranial hemorrhage, abnormal extra-axial fluid collection, or mass effect. Fourth ventricle is midline without hydrocephalus. Bony calvarium intact. Mild mucosal thickening both ethmoid and left maxillary sinuses without fluid leveling. Mastoid air cells are clear. Impression: Nonacute senile brain. Incidental paranasal sinus disease.
--- NOTE | 2024-02-28 17:01 | XRAY ---
Indication: Pain following fall. Multiple contiguous axial images obtained through the thoracic spine. Sagittal and coronal reformatted images obtained. Comparison: None Osseous structures immobilized consistent with patient's age. Minimal acute fracture superior endplate T4 with less than 25% height loss. No spinal canal or foraminal encroachment. T11 vertebral body demonstrates incidental 2.2 cm hemangioma. Minimal T5-T12 degenerative vacuum disc phenomena. Sagittal and coronal reformatted images demonstrates normal thoracic alignment/kyphosis. Disc spaces maintained. Visualized noncontrasted soft tissues demonstrates bilateral lung dependent atelectasis and mild scattered aortic calcifications. Impression: 1. Acute superior endplate fracture T4 as detailed. 2. Chronic findings including osteopenia, multilevel degenerative vacuum disc phenomena, incidental T11 vertebral hemangioma, and scattered arteriosclerotic disease.
--- NOTE | 2024-02-28 17:03 | XRAY ---
Indication: Pain following fall. Multiple contiguous axial images obtained through the lumbar spine. Sagittal and coronal reformatted images obtained. Comparison: None Osseous structures immobilized consistent with patient's age. No acute fracture or suspicious bony lesions. Minimal/mild broad-based disc bulge at L3-L5 levels and minimal L4-L5 degenerative vacuum disc phenomena. Facets are symmetric with mild/moderate L3-S1 degenerative facet hypertrophy. Sagittal and coronal reformatted images demonstrates normal lumbar lordosis. 2-3 mm degenerative anterolisthesis L4 on L5. No acute compression fracture. Disc spaces maintained. Visualized noncontrasted soft tissues demonstrates mild scattered aortic calcifications, nonobstructing left renal punctate calculus, and tiny hepatic/splenic calcified granulomas. Impression: 1. No acute fracture. 2. Chronic findings including osteopenia, multilevel degenerative spondylosis including minimal grade 1 L4 spondylolisthesis, nonobstructing left renal micro-calculus, arteriosclerotic disease, and old granulomatous disease.
[2024-02-28] MEDS ORDERED: MORPHINE SULFATE 2 MG INJ ONE ×2 (17:06→18:19)
[2024-02-28] MEDS ORDERED: Zofran 4 MG/2 ML VIAL ONE (17:06)
[2024-02-28] MEDS: ZOFRAN ODT 4 MG PO ONE (17:08)
[2024-02-28] MEDS: Zofran 4 MG/2 ML VIAL IV ONE (17:10)
[2024-02-28 17:11] LABS: Absolute Neutrophil Ct (ANC) 11.28 x10^3/uL (1.56-6.13); BASOPHIL % 0.5 % (0.1-1.2); Basophil (Absolute #) 0.08 x10^3/uL (0.01-0.08); Eosinophil % 2.1 % (0.7-5.8); Eosinophil (Absolute #) 0.31 x10^3/uL (0.04-0.36); Hemoglobin 11.9 g/dL (11.2-15.7); IMMATURE GRAN % 0.7 % (0.001-0.429); Lymphocyte (Absolute #) 2.16 x10^3/uL (1.18-3.74); Lymphocytes % 14.3 % (19.3-51.7); Mean Cell Volume 89.3 fL (79.4-94.8); Mean Corpuscular Hemoglobin 29.5 pg (25.6-32.2); Mean Corpuscular Hgb Concent. 33.1 g/dL (32.2-35.5); Monocyte (Absolute #) 1.13 x10^3/uL (0.24-0.86); Monocytes % 7.5 % (4.7-12.5); Neutrophil % 74.9 % (34.0-71.1); Platelet Count 219 x10^3/uL (182-369); Red Blood Count 4.03 x10^6/uL (3.93-5.22); Red Cell Distribution Width 12.6 % (11.7-14.4); White Blood Count 15.1 x10^3/uL (3.98-10.04)
[2024-02-28] MEDS: MORPHINE SULFATE 2 MG INJ IM ONE (17:12)
[2024-02-28 17:27] LABS: ALBUMIN 4.2 g/dL (3.5-5.0); BILIRUBIN,TOTAL 0.7 mg/dL (0.2-1.3); Calcium 9.5 mg/dL (8.4-10.2); Creatinine 1 1.23 mg/dL (0.52-1.04); Total Protein 6.7 g/dL (6.3-8.2)
[2024-02-28 17:49] LABS: Potassium 3.6 mmol/L (3.5-5.1)
[2024-02-28 17:50] LABS: ANION GAP 15.6 MEQ/L (5-15)
[2024-02-28] MEDS: MORPHINE SULFATE 2 MG INJ IV ONE (18:21)
[2024-02-28] MEDS ORDERED: SUMATRIPTAN SUCCINATE 100 MG PO PRN (21:31)
[2024-02-28] MEDS ORDERED: TYLENOL 325 MG PO PRN (21:32)
[2024-02-28] MEDS ORDERED: Docusate Sodium 100 MG PO PRN (21:32)
[2024-02-28] MEDS ORDERED: Zofran 4 MG/2 ML VIAL IV PRN (21:32)
[2024-02-28] MEDS ORDERED: HUMALOG SQ PRN (21:32)
[2024-02-28] MEDS ORDERED: NON-FORMULARY ITEM (Famotidine [Pepcid] 40 MG Tablet) PO SCH (22:00)
[2024-02-28] MEDS ORDERED: NON-FORMULARY ITEM (Insulin Glargine,Hum.Rec.Anlog [Basaglar Kwikpen U-100] 100 UNIT/ML In SQ SCH (22:00)
[2024-02-28] MEDS ORDERED: NON-FORMULARY ITEM (Potassium Chloride [Potassium Chloride] 10 MEQ Tab.Er.Prt) PO SCH (22:00)
--- NOTE | 2024-02-28 22:01 | PCM.HP ---
History of Present Illness - Chief Complaint Chief Complaint: T4 FRACTURE, FALL, BACK PAIN Date: 02/28/24 History of Present Illness: is a 79 year old female with a history of DM and osteoporosis who presented to the ED after fall at home. Patient states that she took 18 units of insulin and did not eat so her blood sugar dropped and she fell. She hit the back of the head and she thinks that she may have passed out. The patient complained of the mid and low back pain. She denied other injuries or pain. Of note, the patient had one additional hypoglycemia episode at home in the last couple of days with a similar pattern (after taking insulin and delaying a meal). She was noted to have persistent pain in the ED and is being admitted for pain control and blood sugar monitoring. - Review of Systems Constitutional: No Symptoms Eyes: No Symptoms Ears, Nose, & Throat: No Symptoms Respiratory: No Symptoms Cardiac: No Symptoms Abdominal/Gastrointestinal: No Symptoms Genitourinary Symptoms: No Symptoms Musculoskeletal: Back Pain, Fall, Injury Skin: No Symptoms Neurological: No Symptoms Psychological: No Symptoms Endocrine: No Symptoms Hematologic/Lymphatic: No Symptoms Immunological/Allergic: No Symptoms All Other Systems: Reviewed and Negative Medications & Allergies Home Medications: Home Medication List SUMAtriptan succinate [Imitrex] 100 mg PO DAILY PRN PRN 12/19/13 [History Confirmed 02/28/24] Alendronate Sodium 70 mg [Fosamax 70 MG] 70 mg PO WEEKLY 02/11/18 [History Confirmed 02/28/24] Ergocalciferol (Vitamin D2) [Vitamin D2] 1.25 mg PO Q7D 02/11/18 [History Confirmed 02/28/24] Paroxetine HCl 20 mg [Paxil 20 MG] 40 mg PO DAILY 02/11/18 [History Confirmed 02/28/24] Famotidine [Pepcid] 40 mg PO HS 09/19/21 [History Confirmed 02/28/24] Furosemide 40 mg [Lasix 40 MG] 80 mg PO DAILY 09/19/21 [History Confirmed 02/28/24] Gabapentin 100 mg PO TID 09/19/21 [History Confirmed 02/28/24] Sildenafil Citrate [Viagra] 25 mg PO TID 09/19/21 [History Confirmed 02/28/24] Atorvastatin Calcium [Lipitor] 40 mg PO DAILY 02/28/24 [History Confirmed 02/28/24] Clopidogrel Bisulfate [PLAVIX Tablet] 75 mg PO DAILY 02/28/24 [History Confirmed 02/28/24] Dextroamphetamine/Amphetamine [Dextroamp-Amphetamin 30 mg Tab] 30 mg PO DAILY 02/28/24 [History Confirmed 02/28/24] Insulin Aspart [NovoLOG Insulin] 18 unit SQ 0800,1200 02/28/24 [History Confirmed 02/28/24] Insulin Aspart [NovoLOG Insulin] 24 unit SQ 1700 02/28/24 [History Confirmed 02/28/24] Insulin Glargine,Hum.rec.anlog [Basaglar Kwikpen U-100] 34 unit SQ HS 02/28/24 [History Confirmed 02/28/24] Metoprolol Tartrate 50 mg [Lopressor 50 MG] 50 mg PO BID 02/28/24 [History Confirmed 02/28/24] Multivitamin with Minerals [Daily Vitamin Formula-Minerals] 1 tab PO DAILY 02/28/24 [History Confirmed 02/28/24] Potassium Chloride 20 meq PO HS 02/28/24 [History Confirmed 02/28/24] Allergies/Adverse Reactions: Allergies Allergy/AdvReac Type Severity Reaction Status Date / Time adhesive Allergy Verified 02/28/24 15:41 Penicillins Allergy Hives Verified 02/28/24 15:41 Sulfa (Sulfonamide Allergy Rash Verified 02/28/24 20:39 Antibiotics) sulfamethoxazole Allergy Hives Verified 02/28/24 15:41 [From Bactrim] scopolamine AdvReac confusion Verified 02/28/24 15:41 - Past Medical History Past Medical History: Yes Neurological History: Migraines ENT History: Cataracts Cardiac History: High Cholesterol, Hypertension Respiratory History: Other Endocrine Medical History: Diabetes Type I, Hypothyroidism Musculoskelatal History: Arthritis GI Medical History: No Pertinent History History: No Pertinent History Pyscho-Social History: Depression Reproductive Disorders: No Pertinent History Comment: Pulmonary HTN - Past Surgical History Past Surgical History: Yes Neuro Surgical History: No Pertinent History Cardiac History: No Pertinent History Respiratory Surgery: No Pertinent History GI Surgical History: No Pertinent History Genitourinary Surgical Hx: No Pertinent History Musculskeletal Surgical Hx: No Pertinent History Female Surgical History: Tubal Ligation Other Surgical History: BUNIONS REMOVED CYST REMOVED FROM BACK - Social History Smoking Status: Never smoker Exposure to second hand smoke: No Alcohol: Rarely Drug Use: none - Social Determinants of Health Will the patient participate in the screening: Yes Do you worry about a steady place to live?: No Do you have any problems with any of the following?: No known problems In the past 12 months,have you had to go without utilities?: No Have you or anyone in your house had to go without enough: No Transportation Issues: No Has anyone in your support network made you feel unsafe?: No Does the patient want assistance with any of the above?: No - Physical Exam Vital Signs: Vital Signs - 24 hr Temp Pulse Resp BP BP Pulse Ox 02/28/24 20:39 97.5 F 76 20 165/70 93 L 02/28/24 19:00 71 19 147/56 95 02/28/24 18:35 97 02/28/24 18:30 68 17 156/64 95 02/28/24 18:26 66 21 148/64 02/28/24 18:25 67 19 02/28/24 18:20 66 21 98 02/28/24 18:10 67 21 97 02/28/24 18:00 66 17 98 02/28/24 17:50 68 25 H 97 02/28/24 17:40 68 26 H 99 02/28/24 17:32 67 18 96 02/28/24 17:00 71 23 169/60 98 02/28/24 16:57 70 24 147/51 97 02/28/24 16:00 156/64 02/28/24 15:30 70 19 176/71 97 02/28/24 15:27 97.6 F General Appearance: no apparent distress, alert Neurologic Exam: alert, oriented x 3, cooperative, 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, normal mood/affect, nml cerebellar function Eye Exam: PERRL/EOMI, eyes nml inspection Ears, Nose, Throat Exam: normal ENT inspection Neck Exam: normal inspection, non-tender, supple, full range of motion Respiratory Exam: normal breath sounds, lungs clear Cardiovascular Exam: regular rate/rhythm, normal heart sounds Gastrointestinal/Abdomen Exam: soft, normal bowel sounds Back Exam: normal range of motion Extremity Exam: normal range of motion, pedal edema (chronic bilateral leg edema noted.) Skin Exam: normal color Results - Labs Lab/Micro Results: Lab Results-Last 24 Hours 02/28/24 02/28/24 02/28/24 Range/Units 17:00 17:01 17:01 WBC 15.1 H (3.98-10.04) x10^3/uL RBC 4.03 (3.93-5.22) x10^6/uL Hgb 11.9 (11.2-15.7) g/dL Hct 36.0 (34.1-44.9) % MCV 89.3 (79.4-94.8) fL MCH 29.5 (25.6-32.2) pg MCHC 33.1 (32.2-35.5) g/dL RDW 12.6 (11.7-14.4) % Plt Count 219 (182-369) x10^3/uL MPV 10.0 (9.4-12.3) fL Gran % 74.9 H (34.0-71.1) % Immature Gran % (Auto) 0.7 H (0.001-0.429) % Nucleat RBC Rel Count 0.0 (0.00-0.2) % Eos # (Auto) 0.31 (0.04-0.36) x10^3/uL Immature Gran # (Auto) 0.10 H (0.001-0.031) x10^3u/L Absolute Lymphs (auto) 2.16 (1.18-3.74) x10^3/uL Absolute Monos (auto) 1.13 H (0.24-0.86) x10^3/uL Absolute Nucleated RBC 0.00 (0.00-0.012) x10^3u/L Lymphocytes % 14.3 L (19.3-51.7) % Monocytes % 7.5 (4.7-12.5) % Eosinophils % 2.1 (0.7-5.8) % Basophils % 0.5 (0.1-1.2) % Absolute Granulocytes 11.28 H (1.56-6.13) x10^3/uL Basophils # 0.08 (0.01-0.08) x10^3/uL Sodium 142 (135-145) mmol/L Potassium 3.6 (3.5-5.1) mmol/L Chloride 103 (98-107) mmol/L Carbon Dioxide 27 (22-30) mmol/L Anion Gap 15.6 H (5-15) MEQ/L BUN 27 H (7-17) mg/dL Creatinine 1.23 H (0.52-1.04) mg/dL Estimated GFR 45.0 ML/MIN Glucose 131 H (74-106) mg/dL POC Glucometer 122 H (74 to 106) mg/dL Calcium 9.5 (8.4-10.2) mg/dL Total Bilirubin 0.70 (0.2-1.3) mg/dL AST 36 (14-36) U/L ALT 32 (0-35) U/L Alkaline Phosphatase 70 (38-126) U/L Troponin I (0.000-0.033) ng/mL Serum Total Protein 6.7 (6.3-8.2) g/dL Albumin 4.2 (3.5-5.0) g/dL 02/28/24 02/28/24 Range/Units 17:01 19:37 WBC (3.98-10.04) x10^3/uL RBC (3.93-5.22) x10^6/uL Hgb (11.2-15.7) g/dL Hct (34.1-44.9) % MCV (79.4-94.8) fL MCH (25.6-32.2) pg MCHC (32.2-35.5) g/dL RDW (11.7-14.4) % Plt Count (182-369) x10^3/uL MPV (9.4-12.3) fL Gran % (34.0-71.1) % Immature Gran % (Auto) (0.001-0.429) % Nucleat RBC Rel Count (0.00-0.2) % Eos # (Auto) (0.04-0.36) x10^3/uL Immature Gran # (Auto) (0.001-0.031) x10^3u/L Absolute Lymphs (auto) (1.18-3.74) x10^3/uL Absolute Monos (auto) (0.24-0.86) x10^3/uL Absolute Nucleated RBC (0.00-0.012) x10^3u/L Lymphocytes % (19.3-51.7) % Monocytes % (4.7-12.5) % Eosinophils % (0.7-5.8) % Basophils % (0.1-1.2) % Absolute Granulocytes (1.56-6.13) x10^3/uL Basophils # (0.01-0.08) x10^3/uL Sodium (135-145) mmol/L Potassium (3.5-5.1) mmol/L Chloride (98-107) mmol/L Carbon Dioxide (22-30) mmol/L Anion Gap (5-15) MEQ/L BUN (7-17) mg/dL Creatinine (0.52-1.04) mg/dL Estimated GFR ML/MIN Glucose (74-106) mg/dL POC Glucometer (74 to 106) mg/dL Calcium (8.4-10.2) mg/dL Total Bilirubin (0.2-1.3) mg/dL AST (14-36) U/L ALT (0-35) U/L Alkaline Phosphatase (38-126) U/L Troponin I < 0.012 < 0.012 (0.000-0.033) ng/mL Serum Total Protein (6.3-8.2) g/dL Albumin (3.5-5.0) g/dL Accuchecks Date 02/28/24 Date 02/28/24 Time 17:01 - Radiology Impressions Radiology Exams & Impressions: Radiology Procedures Category Date Time Status HEAD WITHOUT CONTRAST [CT] Stat Exams 02/28/24 15:48 Completed LUMBAR SPINE W/O [CT] Stat Exams 02/28/24 15:48 Completed THORACIC SPINE W/O CONTRAST [CT] Stat Exams 02/28/24 15:48 Completed Assessment/Plan (1) T4 vertebral fracture Current Visit: Yes Status: Acute Qualifiers: Encounter type: initial encounter Fracture morphology: other fracture Assessment & Plan: Pain control. PT. May need consideration of referral for kyphoplasty as an outpatient. Code(s): S22.049A - UNSP FRACTURE OF FOURTH THORACIC VERTEBRA, INIT FOR CLOS FX (2) Back pain Current Visit: Yes Status: Acute Assessment & Plan: Likely will need a prn narcotic for breakthrough pain at discharge. Code(s): M54.9 - DORSALGIA, UNSPECIFIED (3) Hypoglycemia associated with type 2 diabetes mellitus Current Visit: Yes Status: Acute Assessment & Plan: Advised not to delay meals after insulin administration. Will monitor sugars on ISS and home regimen. Code(s): E11.649 - TYPE 2 DIABETES MELLITUS WITH HYPOGLYCEMIA WITHOUT COMA (4) Fall on same level Current Visit: Yes Status: Acute Qualifiers: Encounter type: initial encounter Qualified Code(s): W18.30XA - Fall on same level, unspecified, initial encounter Assessment & Plan: PT/OT assessment. Code(s): W18.30XA - FALL ON SAME LEVEL, UNSPECIFIED, INITIAL ENCOUNTER Telemedicine Encounter - Telemedicine Encounter Telemedicine Encounter: "The entirety of this encounter was performed via Telemedicine" This visit was performed using real-time audio and video connection between my location and thepatients locationwith the assistance of a surrogateat the patients location. Written or verbal consent was obtained from the patient/guardian to perform this visit [facility]. Any patient questions regarding the telemedicine interaction were answered.
[2024-02-28] MEDS: Neurontin PO SCH (22:02)
[2024-02-28] MEDS: Pepcid 20 MG PO SCH (22:02)
[2024-02-28] MEDS: Klor Con PO SCH (22:02)
[2024-02-28] MEDS: Lopressor 50 MG PO SCH (22:02)
[2024-02-28] MEDS: Lantus Insulin SQ SCH (22:03)
[2024-02-28] MEDS: SILDENAFIL CITRATE 25 MG PO SCH (22:04)
[2024-02-28] MEDS: MORPHINE SULFATE 2 MG INJ IV PRN (22:12)
[2024-02-29] MEDS: NORCO 5/325 MG PO PRN (00:01)
[2024-02-29 00:32] LABS: Appearance Clear (Clear); Bacteria None Seen /HPF (None Seen); Bilirubin Negative (Negative); Blood Negative (Negative); Epithelial Cells None Seen /HPF (None Seen); Glucose, Urine 100 mg/dL (Negative); Ketones Negative (Negative); Leukocyte Esterase Small (Negative); Nitrite Negative (Negative); Ph 5.5 (4.6-8.0); Protein,Urine Dip Negative (Negative); RBC 0-2 /HPF (0-5); Specific Gravity 1.015 (1.005-1.030); Urobilinogen 0.2 mg/dL (0.2)
[2024-02-29] MEDS: ROCEPHIN 1 GM / 100 ML NaCl 1 GM/100 ML IVPB IV SCH ×2 (01:09→22:18)
[2024-02-29 05:02] LABS: Absolute Neutrophil Ct (ANC) 5.11 x10^3/uL (1.56-6.13); BASOPHIL % 0.8 % (0.1-1.2); Basophil (Absolute #) 0.08 x10^3/uL (0.01-0.08); Eosinophil % 4.4 % (0.7-5.8); Eosinophil (Absolute #) 0.42 x10^3/uL (0.04-0.36); Hematocrit 32.8 % (34.1-44.9); Hemoglobin 10.9 g/dL (11.2-15.7); IMMATURE GRAN # 0.03 x10^3u/L (0.001-0.031); IMMATURE GRAN % 0.3 % (0.001-0.429); Lymphocyte (Absolute #) 2.74 x10^3/uL (1.18-3.74); Lymphocytes % 28.8 % (19.3-51.7); Mean Cell Volume 89.6 fL (79.4-94.8); Mean Corpuscular Hemoglobin 29.8 pg (25.6-32.2); Mean Corpuscular Hgb Concent. 33.2 g/dL (32.2-35.5); Mean Platelet Volume 10.2 fL (9.4-12.3); Monocyte (Absolute #) 1.12 x10^3/uL (0.24-0.86); Monocytes % 11.8 % (4.7-12.5); Neutrophil % 53.9 % (34.0-71.1); Platelet Count 206 x10^3/uL (182-369); Red Blood Count 3.66 x10^6/uL (3.93-5.22); Red Cell Distribution Width 12.6 % (11.7-14.4); White Blood Count 9.5 x10^3/uL (3.98-10.04)
[2024-02-29 05:25] LABS: ANION GAP 10.6 MEQ/L (5-15); Calcium 8.5 mg/dL (8.4-10.2); Creatinine 1 1.2 mg/dL (0.52-1.04); EST GLOMERULAR FILTRATION RATE 46.3 ML/MIN; Potassium 3.9 mmol/L (3.5-5.1)
[2024-02-29] MEDS ORDERED: MEDICATION INTERVENTION PO PRN (07:39)
[2024-02-29] MEDS ORDERED: MEDICATION INTERVENTION MC SCH ×2 (07:45)
[2024-02-29] MEDS ORDERED: NON-FORMULARY ITEM (Insulin Aspart** [Novolog Insulin**] 1 UNIT Unit) SQ SCH ×2 (08:00→17:00)
[2024-02-29] MEDS: HUMALOG SQ SCH ×2 (08:07→18:05)
--- NOTE | 2024-02-29 09:43 | PCM.NOTE ---
Date and Time: 02/29/24 0934 Subjective Assessment: 02/29/24 is a 79 year old female with a history of DM and osteoporosis. She presented to the ED on 02/28/24 after fall at home that day. Patient states that she took 18 units of insulin and did not eat so her blood sugar dropped and she fell. She hit the back of the head and she thinks that she may have passed out. The patient complained of the mid and low back pain. She denied other injuries or pain. Of note, the patient had one additional hypoglycemia episode at home in the last couple of days with a similar pattern (after taking insulin and delaying a meal). She was noted to have persistent pain in the ED and is being admitted for pain control and blood sugar monitoring. CT of Thoraccic spine shows T4 fx. She admits to 7/10 pain laying in the bed and worse when getting up. will have pt work with PT today. Narcotic pain medication is helping to control her pain. She admits to having more falls at home here lately and has no equipment such as a rollator. She does have a emergency call device but admits to not using it and was about to sent it back to the [facility]. Urged pt to keep this on her and educated to eat after taking insulin and not delay doing so. Pt does have some BIBI and IVF started. Pt asking for referral to [facility] in [place] for F/u T4 fx. May also need OP PT. Pt denies CP, SOB, abd pain, N/V/D. Likely to d/c tomorrow. - Review of Systems Constitutional: No Fever, No Chills Eyes: No Symptoms Ears, Nose, & Throat: No Symptoms Respiratory: No Cough, No Short Of Breath Cardiac: No Chest Pain, No Edema, No Syncope Abdominal/Gastrointestinal: No Abdominal Pain, No Nausea, No Vomiting, No Diarrhea Genitourinary Symptoms: No Dysuria Musculoskeletal: Back Pain, No Neck Pain Skin: No Rash Neurological: No Dizziness, No Focal Weakness, No Sensory Changes Psychological: No Symptoms Endocrine: No Symptoms Hematologic/Lymphatic: No Symptoms Immunological/Allergic: No Symptoms Objective Exam General Appearance: no apparent distress, alert, obese Neurologic Exam: alert, oriented x 3, cooperative, normal mood/affect, nml cerebellar function, sensation nml, No motor deficits Skin Exam: normal color, warm, dry Eye Exam: PERRL, EOMI, eyes nml inspection Ears, Nose, Throat Exam: normal ENT inspection, pharynx normal, moist mucous membranes Neck Exam: normal inspection, non-tender, supple, full range of motion Respiratory Exam: normal breath sounds, lungs clear, No respiratory distress Cardiovascular Exam: regular rate/rhythm, normal heart sounds Gastrointestinal/Abdomen Exam: soft, No tenderness, No mass Extremity Exam: normal inspection, normal range of motion Back Exam: normal inspection, normal range of motion, decreased range of motion (Thoracic back region), No CVA tenderness, No vertebral tenderness Pelvic Exam: deferred Rectal Exam: deferred Objective Data Vital Signs: Vital Signs - 24 hr Temp Pulse Resp BP BP Pulse Ox 02/29/24 07:45 97.5 F 59 L 16 126/58 92 L 02/29/24 04:00 97.1 F 62 16 108/51 93 L 02/28/24 23:50 97.8 F 72 16 145/67 92 L 02/28/24 20:39 97.5 F 76 20 165/70 93 L 02/28/24 19:00 71 19 147/56 95 02/28/24 18:35 97 02/28/24 18:30 68 17 156/64 95 02/28/24 18:26 66 21 148/64 02/28/24 18:25 67 19 02/28/24 18:20 66 21 98 02/28/24 18:10 67 21 97 02/28/24 18:00 66 17 98 02/28/24 17:50 68 25 H 97 02/28/24 17:40 68 26 H 99 02/28/24 17:32 67 18 96 02/28/24 17:00 71 23 169/60 98 02/28/24 16:57 70 24 147/51 97 02/28/24 16:00 156/64 02/28/24 15:30 70 19 176/71 97 02/28/24 15:27 97.6 F Pain Assessment - Last Documented Pain Intensity 5 Pain Scale Used 0-10 Pain Scale Intake and Output: Intake & Output 02/26/24 02/27/24 02/28/24 02/29/24 11:59 11:59 11:59 11:59 Intake Total 360 Output Total 600 Balance -240 Weight 90.8 kg Lab Results: Lab Results-Last 24 Hours 02/28/24 02/28/24 02/28/24 Range/Units 17:00 17:01 17:01 WBC 15.1 H (3.98-10.04) x10^3/uL RBC 4.03 (3.93-5.22) x10^6/uL Hgb 11.9 (11.2-15.7) g/dL Hct 36.0 (34.1-44.9) % MCV 89.3 (79.4-94.8) fL MCH 29.5 (25.6-32.2) pg MCHC 33.1 (32.2-35.5) g/dL RDW 12.6 (11.7-14.4) % Plt Count 219 (182-369) x10^3/uL MPV 10.0 (9.4-12.3) fL Gran % 74.9 H (34.0-71.1) % Immature Gran % (Auto) 0.7 H (0.001-0.429) % Nucleat RBC Rel Count 0.0 (0.00-0.2) % Eos # (Auto) 0.31 (0.04-0.36) x10^3/uL Immature Gran # (Auto) 0.10 H (0.001-0.031) x10^3u/L Absolute Lymphs (auto) 2.16 (1.18-3.74) x10^3/uL Absolute Monos (auto) 1.13 H (0.24-0.86) x10^3/uL Absolute Nucleated RBC 0.00 (0.00-0.012) x10^3u/L Lymphocytes % 14.3 L (19.3-51.7) % Monocytes % 7.5 (4.7-12.5) % Eosinophils % 2.1 (0.7-5.8) % Basophils % 0.5 (0.1-1.2) % Absolute Granulocytes 11.28 H (1.56-6.13) x10^3/uL Basophils # 0.08 (0.01-0.08) x10^3/uL Sodium 142 (135-145) mmol/L Potassium 3.6 (3.5-5.1) mmol/L Chloride 103 (98-107) mmol/L Carbon Dioxide 27 (22-30) mmol/L Anion Gap 15.6 H (5-15) MEQ/L BUN 27 H (7-17) mg/dL Creatinine 1.23 H (0.52-1.04) mg/dL Estimated GFR 45.0 ML/MIN Glucose 131 H (74-106) mg/dL POC Glucometer 122 H (74 to 106) mg/dL Hemoglobin A1c (4.5-6.0) % Calcium 9.5 (8.4-10.2) mg/dL Total Bilirubin 0.70 (0.2-1.3) mg/dL AST 36 (14-36) U/L ALT 32 (0-35) U/L Alkaline Phosphatase 70 (38-126) U/L Troponin I (0.000-0.033) ng/mL Serum Total Protein 6.7 (6.3-8.2) g/dL Albumin 4.2 (3.5-5.0) g/dL Urine Color (Yellow) Urine Appearance (Clear) Urine pH (4.6-8.0) Ur Specific [place] (1.005-1.030) Urine Protein (Negative) Urine Glucose (UA) (Negative) mg/dL Urine Ketones (Negative) Urine Blood (Negative) Urine Nitrite (Negative) Urine Bilirubin (Negative) Urine Urobilinogen (0.2) mg/dL Ur Leukocyte Esterase (Negative) U Hyaline Cast (Auto) (0-2) /LPF Urine Microscopic RBC (0-5) /HPF Urine Microscopic WBC (0-5) /HPF Ur Epithelial Cells (None Seen) /HPF Urine Bacteria (None Seen) /HPF Urine Culture Reflexed (NO) 02/28/24 02/28/24 02/28/24 Range/Units 17:01 19:37 23:48 WBC (3.98-10.04) x10^3/uL RBC (3.93-5.22) x10^6/uL Hgb (11.2-15.7) g/dL Hct (34.1-44.9) % MCV (79.4-94.8) fL MCH (25.6-32.2) pg MCHC (32.2-35.5) g/dL RDW (11.7-14.4) % Plt Count (182-369) x10^3/uL MPV (9.4-12.3) fL Gran % (34.0-71.1) % Immature Gran % (Auto) (0.001-0.429) % Nucleat RBC Rel Count (0.00-0.2) % Eos # (Auto) (0.04-0.36) x10^3/uL Immature Gran # (Auto) (0.001-0.031) x10^3u/L Absolute Lymphs (auto) (1.18-3.74) x10^3/uL Absolute Monos (auto) (0.24-0.86) x10^3/uL Absolute Nucleated RBC (0.00-0.012) x10^3u/L Lymphocytes % (19.3-51.7) % Monocytes % (4.7-12.5) % Eosinophils % (0.7-5.8) % Basophils % (0.1-1.2) % Absolute Granulocytes (1.56-6.13) x10^3/uL Basophils # (0.01-0.08) x10^3/uL Sodium (135-145) mmol/L Potassium (3.5-5.1) mmol/L Chloride (98-107) mmol/L Carbon Dioxide (22-30) mmol/L Anion Gap (5-15) MEQ/L BUN (7-17) mg/dL Creatinine (0.52-1.04) mg/dL Estimated GFR ML/MIN Glucose (74-106) mg/dL POC Glucometer (74 to 106) mg/dL Hemoglobin A1c (4.5-6.0) % Calcium (8.4-10.2) mg/dL Total Bilirubin (0.2-1.3) mg/dL AST (14-36) U/L ALT (0-35) U/L Alkaline Phosphatase (38-126) U/L Troponin I < 0.012 < 0.012 (0.000-0.033) ng/mL Serum Total Protein (6.3-8.2) g/dL Albumin (3.5-5.0) g/dL Urine Color Yellow (Yellow) Urine Appearance Clear (Clear) Urine pH 5.5 (4.6-8.0) Ur Specific [place] 1.015 (1.005-1.030) Urine Protein Negative (Negative) Urine Glucose (UA) 100 A (Negative) mg/dL Urine Ketones Negative (Negative) Urine Blood Negative (Negative) Urine Nitrite Negative (Negative) Urine Bilirubin Negative (Negative) Urine Urobilinogen 0.2 (0.2) mg/dL Ur Leukocyte Esterase Small A (Negative) U Hyaline Cast (Auto) 11-20 (0-2) /LPF Urine Microscopic RBC 0-2 (0-5) /HPF Urine Microscopic WBC 6-10 A (0-5) /HPF Ur Epithelial Cells None Seen (None Seen) /HPF Urine Bacteria None Seen (None Seen) /HPF Urine Culture Reflexed NO (NO) 02/29/24 02/29/24 02/29/24 Range/Units 00:20 04:58 04:58 WBC 9.5 (3.98-10.04) x10^3/uL RBC 3.66 L (3.93-5.22) x10^6/uL Hgb 10.9 L (11.2-15.7) g/dL Hct 32.8 L (34.1-44.9) % MCV 89.6 (79.4-94.8) fL MCH 29.8 (25.6-32.2) pg MCHC 33.2 (32.2-35.5) g/dL RDW 12.6 (11.7-14.4) % Plt Count 206 (182-369) x10^3/uL MPV 10.2 (9.4-12.3) fL Gran % 53.9 (34.0-71.1) % Immature Gran % (Auto) 0.3 (0.001-0.429) % Nucleat RBC Rel Count 0.0 (0.00-0.2) % Eos # (Auto) 0.42 H (0.04-0.36) x10^3/uL Immature Gran # (Auto) 0.03 (0.001-0.031) x10^3u/L Absolute Lymphs (auto) 2.74 (1.18-3.74) x10^3/uL Absolute Monos (auto) 1.12 H (0.24-0.86) x10^3/uL Absolute Nucleated RBC 0.00 (0.00-0.012) x10^3u/L Lymphocytes % 28.8 (19.3-51.7) % Monocytes % 11.8 (4.7-12.5) % Eosinophils % 4.4 (0.7-5.8) % Basophils % 0.8 (0.1-1.2) % Absolute Granulocytes 5.11 (1.56-6.13) x10^3/uL Basophils # 0.08 (0.01-0.08) x10^3/uL Sodium 137 (135-145) mmol/L Potassium 3.9 (3.5-5.1) mmol/L Chloride 104 (98-107) mmol/L Carbon Dioxide 27 (22-30) mmol/L Anion Gap 10.6 (5-15) MEQ/L BUN 24 H (7-17) mg/dL Creatinine 1.20 H (0.52-1.04) mg/dL Estimated GFR 46.3 ML/MIN Glucose 273 H (74-106) mg/dL POC Glucometer (74 to 106) mg/dL Hemoglobin A1c (4.5-6.0) % Calcium 8.5 (8.4-10.2) mg/dL Total Bilirubin (0.2-1.3) mg/dL AST (14-36) U/L ALT (0-35) U/L Alkaline Phosphatase (38-126) U/L Troponin I < 0.012 (0.000-0.033) ng/mL Serum Total Protein (6.3-8.2) g/dL Albumin (3.5-5.0) g/dL Urine Color (Yellow) Urine Appearance (Clear) Urine pH (4.6-8.0) Ur Specific [place] (1.005-1.030) Urine Protein (Negative) Urine Glucose (UA) (Negative) mg/dL Urine Ketones (Negative) Urine Blood (Negative) Urine Nitrite (Negative) Urine Bilirubin (Negative) Urine Urobilinogen (0.2) mg/dL Ur Leukocyte Esterase (Negative) U Hyaline Cast (Auto) (0-2) /LPF Urine Microscopic RBC (0-5) /HPF Urine Microscopic WBC (0-5) /HPF Ur Epithelial Cells (None Seen) /HPF Urine Bacteria (None Seen) /HPF Urine Culture Reflexed (NO) 02/29/24 Range/Units 04:58 WBC (3.98-10.04) x10^3/uL RBC (3.93-5.22) x10^6/uL Hgb (11.2-15.7) g/dL Hct (34.1-44.9) % MCV (79.4-94.8) fL MCH (25.6-32.2) pg MCHC (32.2-35.5) g/dL RDW (11.7-14.4) % Plt Count (182-369) x10^3/uL MPV (9.4-12.3) fL Gran % (34.0-71.1) % Immature Gran % (Auto) (0.001-0.429) % Nucleat RBC Rel Count (0.00-0.2) % Eos # (Auto) (0.04-0.36) x10^3/uL Immature Gran # (Auto) (0.001-0.031) x10^3u/L Absolute Lymphs (auto) (1.18-3.74) x10^3/uL Absolute Monos (auto) (0.24-0.86) x10^3/uL Absolute Nucleated RBC (0.00-0.012) x10^3u/L Lymphocytes % (19.3-51.7) % Monocytes % (4.7-12.5) % Eosinophils % (0.7-5.8) % Basophils % (0.1-1.2) % Absolute Granulocytes (1.56-6.13) x10^3/uL Basophils # (0.01-0.08) x10^3/uL Sodium (135-145) mmol/L Potassium (3.5-5.1) mmol/L Chloride (98-107) mmol/L Carbon Dioxide (22-30) mmol/L Anion Gap (5-15) MEQ/L BUN (7-17) mg/dL Creatinine (0.52-1.04) mg/dL Estimated GFR ML/MIN Glucose (74-106) mg/dL POC Glucometer (74 to 106) mg/dL Hemoglobin A1c 8.13 H (4.5-6.0) % Calcium (8.4-10.2) mg/dL Total Bilirubin (0.2-1.3) mg/dL AST (14-36) U/L ALT (0-35) U/L Alkaline Phosphatase (38-126) U/L Troponin I (0.000-0.033) ng/mL Serum Total Protein (6.3-8.2) g/dL Albumin (3.5-5.0) g/dL Urine Color (Yellow) Urine Appearance (Clear) Urine pH (4.6-8.0) Ur Specific [place] (1.005-1.030) Urine Protein (Negative) Urine Glucose (UA) (Negative) mg/dL Urine Ketones (Negative) Urine Blood (Negative) Urine Nitrite (Negative) Urine Bilirubin (Negative) Urine Urobilinogen (0.2) mg/dL Ur Leukocyte Esterase (Negative) U Hyaline Cast (Auto) (0-2) /LPF Urine Microscopic RBC (0-5) /HPF Urine Microscopic WBC (0-5) /HPF Ur Epithelial Cells (None Seen) /HPF Urine Bacteria (None Seen) /HPF Urine Culture Reflexed (NO) Radiology Exams: Radiology Procedures Category Date Time Status HEAD WITHOUT CONTRAST [CT] Stat Exams 02/28/24 15:48 Completed LUMBAR SPINE W/O [CT] Stat Exams 02/28/24 15:48 Completed THORACIC SPINE W/O CONTRAST [CT] Stat Exams 02/28/24 15:48 Completed Assessment/Plan (1) T4 vertebral fracture Current Visit: Yes Status: Acute Qualifiers: Encounter type: initial encounter Fracture morphology: other fracture Code(s): S22.049A - UNSP FRACTURE OF FOURTH THORACIC VERTEBRA, INIT FOR CLOS FX (2) Back pain Current Visit: Yes Status: Acute Code(s): M54.9 - DORSALGIA, UNSPECIFIED (3) Hypoglycemia associated with type 2 diabetes mellitus Current Visit: Yes Status: Acute Code(s): E11.649 - TYPE 2 DIABETES MELLITUS WITH HYPOGLYCEMIA WITHOUT COMA (4) Fall on same level Current Visit: Yes Status: Acute Qualifiers: Encounter type: initial encounter Qualified Code(s): W18.30XA - Fall on same level, unspecified, initial encounter Assessment & Plan: 1) T4 vertebral fracture Current Visit: Yes Status: Acute Qualifiers: Encounter type: initial encounter Fracture morphology: other fracture Assessment & Plan: - narcotic pain control. - PT. - May need consideration of referral for kyphoplasty as an outpatient. - appointment made for f/u OP with [facility] Code(s): S22.049A - UNSP FRACTURE OF FOURTH THORACIC VERTEBRA, INIT FOR CLOS FX (2) Back pain Current Visit: Yes Status: Acute Assessment & Plan: -Likely will need a prn narcotic for breakthrough pain at discharge. Code(s): M54.9 - DORSALGIA, UNSPECIFIED (3) Hypoglycemia associated with type 2 diabetes mellitus Current Visit: Yes Status: Acute Assessment & Plan: - Advised not to delay meals after insulin administration. - Will monitor sugars on ISS and home regimen. - A1c 8.13- uncontrolled Code(s): E11.649 - TYPE 2 DIABETES MELLITUS WITH HYPOGLYCEMIA WITHOUT COMA (4) Fall on same level Current Visit: Yes Status: Acute Qualifiers: Encounter type: initial encounter Qualified Code(s): W18.30XA - Fall on same level, unspecified, initial encounter Assessment & Plan: - PT/OT assessment. Code(s): W18.30XA - FALL ON SAME LEVEL, UNSPECIFIED, INITIAL ENCOUNTER Code(s): W18.30XA - FALL ON SAME LEVEL, UNSPECIFIED, INITIAL ENCOUNTER (5) BIBI (acute kidney injury) Current Visit: Yes Status: Acute Assessment & Plan: - Creat 1.20, baseline 0.83 - IVF Code(s): N17.9 - ACUTE KIDNEY FAILURE, UNSPECIFIED (6) Obesity (BMI 30.0-34.9) Current Visit: Yes Status: Chronic Assessment & Plan: - Advised ADA diet and exercise control. Code(s): E66.811 - OBESITY, CLASS 1
[2024-02-29] MEDS: PLAVIX Tablet PO SCH (09:47)
[2024-02-29] MEDS: THERAGRAN MULTIVITAMIN PO SCH (09:47)
[2024-02-29] MEDS: Lasix 40 MG PO SCH (09:47)
[2024-02-29] MEDS: Sodium Chloride 0.9% 1000 ML 1,000 ML IV SCH (09:56)
[2024-02-29] MEDS ORDERED: [UNRECOGNIZED DRUG - OTHER] PO SCH (10:00)
[2024-02-29] MEDS ORDERED: LIPITOR 40MG PO SCH (10:00)
[2024-02-29] MEDS ORDERED: MULTIVITAMIN WITH MINERALS PO SCH (10:00)
[2024-02-29] MEDS ORDERED: NON-FORMULARY ITEM (Dextroamphetamine/Amphetamine [Dextroamp-Amphetamin 30 Mg Tab] 30 MG T PO SCH (10:00)
[2024-02-29] MEDS ORDERED: TYLENOL 325 MG PO PRN (11:59)
[2024-02-29] MEDS: ZOCOR 20MG PO SCH (22:18)
[2024-03-01 05:35] LABS: Hematocrit 35.4 % (34.1-44.9); Hemoglobin 11.4 g/dL (11.2-15.7); Mean Cell Volume 89.8 fL (79.4-94.8); Mean Corpuscular Hemoglobin 28.9 pg (25.6-32.2); Mean Corpuscular Hgb Concent. 32.2 g/dL (32.2-35.5); Mean Platelet Volume 10.4 fL (9.4-12.3); Platelet Count 214 x10^3/uL (182-369); Red Blood Count 3.94 x10^6/uL (3.93-5.22); Red Cell Distribution Width 12.5 % (11.7-14.4)
[2024-03-01 06:03] LABS: ALBUMIN 3.5 g/dL (3.5-5.0); ANION GAP 13.7 MEQ/L (5-15); BILIRUBIN,TOTAL 0.5 mg/dL (0.2-1.3); Calcium 8.4 mg/dL (8.4-10.2); Creatinine 1 1.12 mg/dL (0.52-1.04); EST GLOMERULAR FILTRATION RATE 50.3 ML/MIN; Potassium 4.1 mmol/L (3.5-5.1); Total Protein 6.1 g/dL (6.3-8.2)
[2024-03-01] MEDS ORDERED: MEDICATION INTERVENTION PO PRN (09:15)
[2024-03-01] MEDS ORDERED: MEDICATION INTERVENTION PO SCH (09:20)
[2024-03-01 11:34] VITALS: BP 143/65; PULSE 57; RESP 18; TEMP 97.5; O2SAT 95
--- NOTE | 2024-03-01 11:47 | PCM.DS ---
Discharge Summary Date of Admission: 02/28/24 20:12 Date of Discharge: 03/01/24 Admitting Physician: AURELIA BETHEA MD Primary Care Provider: JOSÉ WILLIS DO Allergies Allergies adhesive Allergy (Verified 02/28/24 15:41) Penicillins Allergy (Verified 02/28/24 15:41) Hives Sulfa (Sulfonamide Antibiotics) Allergy (Verified 02/28/24 20:39) Rash sulfamethoxazole [From Bactrim] Allergy (Verified 02/28/24 15:41) Hives scopolamine Adverse Reaction (Verified 02/28/24 15:41) confusion Hospital Summary - Hospital Course Hospital Course: 02/28 is a 79 year old female with a history of DM and osteoporosis. She presented to the ED on 02/28/24 after fall at home that day. Patient states that she took 18 units of insulin and did not eat so her blood sugar dropped and she fell. She hit the back of the head and she thinks that she may have passed out. The patient complained of the mid and low back pain. She denied other injuries or pain. Of note, the patient had one additional hypoglycemia episode at home in the last couple of days with a similar pattern (after taking insulin and delaying a meal). She was noted to have persistent pain in the ED and is being admitted for pain control and blood sugar monitoring. CT of Thoraccic spine shows T4 fx. She admits to 11/30 pain laying in the bed and worse when getting up. will have pt work with PT today. Narcotic pain medication is helping to control her pain. She admits to having more falls at home here lately and has no equipment such as a rollator. She does have a emergency call device but admits to not using it and was about to sent it back to the [employer]. Urged pt to keep this on her and educated to eat after taking insulin and not delay doing so. Pt does have some BIBI and IVF started. Pt asking for referral to [facility] in [place] for F/u T4 fx. May also need OP PT. Pt denies CP, SOB, abd pain, N/V/D. Likely to d/c tomorrow. 03/01/24 Pt resting in bed. She feels she is ready to go home today. No hypoglycemic episodes since admission. Advised to eat after she takes her insulin and not delay as she has been doing. Back pain controlled with narcotic pain meds. OP f/u appointment made with [facility]. She is asking for [facility] assistance as her family is not home during the day. BP elevated this am but after morning meds and rechecked non-concerning. Hypokalemia resolved. BIBI improved. Will continue 1 more day of antibiotic for mild UTI at d/c. will also d/c with pain meds PRN. Pt denies CP, SOB, abd pain, N/V/D. - Vitals & Intake/Output Vital Signs: Vital Signs Temperature 97.5 F 03/01/24 11:33 Pulse Rate 57 L 03/01/24 11:33 Respiratory Rate 18 03/01/24 11:33 Blood Pressure 143/65 03/01/24 11:33 O2 Sat by Pulse Oximetry 95 03/01/24 11:33 Intake & Output: Intake & Output 02/27/24 02/28/24 02/29/24 03/01/24 11:59 11:59 11:59 11:59 Intake Total 600 2845 Output Total 600 Balance 0 2845 Weight 90.8 kg - Lab Result Diagrams: 03/01/24 04:32 03/01/24 04:32 Lab Results-Last 24 Hrs: Lab Results-Last 24 Hours 02/29/24 03/01/24 03/01/24 Range/Units 17:01 04:32 04:32 WBC 10.0 (3.98-10.04) x10^3/uL RBC 3.94 (3.93-5.22) x10^6/uL Hgb 11.4 (11.2-15.7) g/dL Hct 35.4 (34.1-44.9) % MCV 89.8 (79.4-94.8) fL MCH 28.9 (25.6-32.2) pg MCHC 32.2 (32.2-35.5) g/dL RDW 12.5 (11.7-14.4) % Plt Count 214 (182-369) x10^3/uL MPV 10.4 (9.4-12.3) fL Sodium 137 (135-145) mmol/L Potassium 4.1 (3.5-5.1) mmol/L Chloride 105 (98-107) mmol/L Carbon Dioxide 22 (22-30) mmol/L Anion Gap 13.7 (5-15) MEQ/L BUN 25 H (7-17) mg/dL Creatinine 1.12 H (0.52-1.04) mg/dL Estimated GFR 50.3 ML/MIN Glucose 227 H (74-106) mg/dL POC Glucometer 80 (74 to 106) mg/dL Calcium 8.4 (8.4-10.2) mg/dL Total Bilirubin 0.50 (0.2-1.3) mg/dL AST 28 (14-36) U/L ALT 21 (0-35) U/L Alkaline Phosphatase 82 (38-126) U/L Serum Total Protein 6.1 L (6.3-8.2) g/dL Albumin 3.5 (3.5-5.0) g/dL Micro Results-Entire Visit: Accuchecks Date 03/01/24 Date 03/01/24 Date 02/29/24 Date 02/29/24 Time 21:30 Time 17:29 - Radiology Exams Ordered Rad Exams-Entire Visit: Radiology Procedures Category Date Time Status HEAD WITHOUT CONTRAST [CT] Stat Exams 02/28/24 15:48 Completed LUMBAR SPINE W/O [CT] Stat Exams 02/28/24 15:48 Completed THORACIC SPINE W/O CONTRAST [CT] Stat Exams 02/28/24 15:48 Completed - Procedures and Test Procedures and Tests throughout Hospitalization: Therapy Orders & Screens 02/28/24 21:06 OT Screen per Nursing Assess ONCE Comment: Protocol Order Physician Instructions: Greater than 3 points order OT Admission Screening Reason For Exam: Triggered on Admission Diagnosis: T4 FRACTURE, FALL, BACK PAIN Open Wound/Cellutlitis/Pressure Ulcers: No Acute Fx/ORIF/Change in wt bearing status: No Severe MUSCULOSKELETAL pain: Yes ADL Dysfunction: No Acute CVA w/Hemiparesis/Hemiplegia: No Decreased Functional Mobility/Strength: Yes Sprain/Strain: No Acute Post-op Mobility Dysfunction: No Total Points: 6 PT Screen per Nursing Assess ONCE Comment: Protocol Order Physician Instructions: Greater than 3 points order PT Admission Screenin Reason For Exam: Triggered on Admission Diagnosis: T4 FRACTURE, FALL, BACK PAIN Open Wound/Cellutlitis/Pressure Ulcers: No Acute Fx/ORIF/Change in wt bearing status: No Severe MUSCULOSKELETAL pain: Yes ADL Dysfunction: No Acute CVA w/Hemiparesis/Hemiplegia: No Decreased Functional Mobility/Strength: Yes Sprain/Strain: No Acute Post-op Mobility Dysfunction: No Total Points: 6 02/29/24 07:30 PT Eval & Treat ( Order) ONCE Reason for Eval:: fall with T4 fx Diagnosis: T4 FRACTURE, FALL, BACK PAIN Discharge Exam General Appearance: no apparent distress, alert Neurologic Exam: alert, oriented x 3, cooperative, normal mood/affect, nml cerebellar function, sensation nml, No motor deficits Eye Exam: PERRL, EOMI, eyes nml inspection Ears, Nose, Throat Exam: normal ENT inspection, pharynx normal, moist mucous membranes Neck Exam: normal inspection, non-tender, supple, full range of motion Respiratory Exam: normal breath sounds, lungs clear, No respiratory distress Cardiovascular Exam: regular rate/rhythm, normal heart sounds Gastrointestinal/Abdomen Exam: soft, No tenderness, No mass Pelvic Exam: deferred Rectal Exam: deferred Back Exam: normal inspection, decreased range of motion (Thoracic), No CVA tenderness, No vertebral tenderness Extremity Exam: normal inspection, normal range of motion Skin Exam: normal color, warm, dry Final Diagnosis/Problem List - Final Discharge Diagnosis/Problem (1) T4 vertebral fracture Current Visit: Yes Status: Acute Code(s): S22.049A - UNSP FRACTURE OF FOURTH THORACIC VERTEBRA, INIT FOR CLOS FX (2) Back pain Current Visit: Yes Status: Acute Code(s): M54.9 - DORSALGIA, UNSPECIFIED (3) Hypoglycemia associated with type 2 diabetes mellitus Current Visit: Yes Status: Acute Code(s): E11.649 - TYPE 2 DIABETES MELLITUS WITH HYPOGLYCEMIA WITHOUT COMA (4) Fall on same level Current Visit: Yes Status: Acute Code(s): W18.30XA - FALL ON SAME LEVEL, UNSPECIFIED, INITIAL ENCOUNTER (5) BIBI (acute kidney injury) Current Visit: Yes Status: Acute Code(s): N17.9 - ACUTE KIDNEY FAILURE, UNSPECIFIED (6) Obesity (BMI 30.0-34.9) Current Visit: Yes Status: Chronic Assessment & Plan: 1) T4 vertebral fracture Current Visit: Yes Status: Acute Qualifiers: Encounter type: initial encounter Fracture morphology: other fracture Assessment & Plan: - narcotic pain control. - PT. - May need consideration of referral for kyphoplasty as an outpatient. - appointment made for f/u OP with [facility] - C set up by case management Code(s): S22.049A - UNSP FRACTURE OF FOURTH THORACIC VERTEBRA, INIT FOR CLOS FX (2) Back pain Current Visit: Yes Status: Acute Assessment & Plan: - prn narcotic for breakthrough pain at discharge. Code(s): M54.9 - DORSALGIA, UNSPECIFIED (3) Hypoglycemia associated with type 2 diabetes mellitus Current Visit: Yes Status: Acute Assessment & Plan: - Advised not to delay meals after insulin administration. - Will monitor sugars on ISS and home regimen. - A1c 8.13- uncontrolled - educated on good glycemic control. - F/U with PCP OP for better management Code(s): E11.649 - TYPE 2 DIABETES MELLITUS WITH HYPOGLYCEMIA WITHOUT COMA (4) Fall on same level Current Visit: Yes Status: Acute Qualifiers: Encounter type: initial encounter Qualified Code(s): W18.30XA - Fall on same level, unspecified, initial encounter Assessment & Plan: - PT/OT assessment. Code(s): W18.30XA - FALL ON SAME LEVEL, UNSPECIFIED, INITIAL ENCOUNTER Code(s): W18.30XA - FALL ON SAME LEVEL, UNSPECIFIED, INITIAL ENCOUNTER (5) BIBI (acute kidney injury) Current Visit: Yes Status: Acute Assessment & Plan: - Creat 1.20, baseline 0.83 - IVF 03/01 - Creat 1.12- improved- f/u with PCP OP Code(s): N17.9 - ACUTE KIDNEY FAILURE, UNSPECIFIED (6) Obesity (BMI 30.0-34.9) Current Visit: Yes Status: Chronic Assessment & Plan: - Advised ADA diet and exercise control. Code(s): E66.811 - OBESITY, CLASS 1 Code(s): E66.811 - OBESITY, CLASS 1 (7) UTI (urinary tract infection) Current Visit: Yes Status: Acute Assessment & Plan: - Mild - Ceftriaxone - continue 1 more day of OP antibiotic Code(s): N39.0 - URINARY TRACT INFECTION, SITE NOT SPECIFIED - Discharge Discharge Date: 03/01/24 Disposition: Home, Self-Care Condition: Stable Prescriptions: Continue SUMAtriptan succinate [Imitrex] 100 mg PO DAILY PRN PRN PRN Reason: MIGRAINES Paroxetine HCl 20 mg [Paxil 20 MG] 40 mg PO DAILY Ergocalciferol (Vitamin D2) [Vitamin D2] 1.25 mg PO Q7D Alendronate Sodium 70 mg [Fosamax 70 MG] 70 mg PO WEEKLY Sildenafil Citrate [Viagra] 25 mg PO TID Gabapentin 100 mg PO TID Furosemide 40 mg [Lasix 40 MG] 80 mg PO DAILY Famotidine [Pepcid] 40 mg PO HS Multivitamin with Minerals [Daily Vitamin Formula-Minerals] 1 tab PO DAILY Insulin Aspart [NovoLOG Insulin] 18 unit SQ 0800,1200 Atorvastatin Calcium [Lipitor] 40 mg PO DAILY Insulin Glargine,Hum.rec.anlog [Basaglar Kwikpen U-100] 34 unit SQ HS Metoprolol Tartrate 50 mg [Lopressor 50 MG] 50 mg PO BID Potassium Chloride 20 meq PO HS Clopidogrel Bisulfate [PLAVIX Tablet] 75 mg PO DAILY Dextroamphetamine/Amphetamine [Dextroamp-Amphetamin 30 mg Tab] 30 mg PO DAILY Insulin Aspart [NovoLOG Insulin] 24 unit SQ 1700 Instructions: Fracture in adults - Discharge instructions Additional Instructions: New patient referral was sent to [facility]. Their office will be calling you with an appointment. Follow up with: JOSÉ WILLIS DO [Primary Care Provider] - 03/08/24 3:30 pm Forms: Discharge Instructions
[2024-03-03] MEDS ORDERED: Fosamax 70 MG PO SCH (06:00)
[2024-03-04] MEDS ORDERED: VITAMIN D2 PO SCH (10:00)
== END 2024-03-01 15:13 | disposition home or self-care (01) ==
LOC: ED 15:27 → MED SURG 20:12
PROVIDERS: ADMIT Internal Medicine; ATTEND Internal Medicine
DX: S22.049A Unspecified fracture of fourth thoracic vertebra, initial encounter for closed fracture (principal); M54.9 Dorsalgia, unspecified; E11.649 Type 2 diabetes mellitus with hypoglycemia without coma; W18.30XA Fall on same level, unspecified, initial encounter; N17.9 Acute kidney failure, unspecified; E66.811 Obesity, class 1; N39.0 Urinary tract infection, site not specified; M81.0 Age-related osteoporosis without current pathological fracture; I10 Essential (primary) hypertension; E78.5 Hyperlipidemia, unspecified; Z79.899 Other long term (current) drug therapy
CPT/HCPCS: 36415; 70450; 72128; 72131; 80048; 80053; 81001; 82947; 83036; 84484; 85025; 85027; 93005; 96374; 96375; 96376; 99284; G0378; J0696; J1817; J2270; J2405; A9270-GY

== ENCOUNTER 2024-04-28 16:16 | Inpatient (IN) | payer MEDICARE, OTHER ==
--- NOTE | 2024-04-28 16:24 | ERPHSYRPT ---
- History of Present Illness Source: patient, family, EMS Exam Limitations: no limitations Timing/Duration: day(s) (3 days), worse (Symptoms worse today) Severity: moderate Associated Symptoms: nausea (Lethargy), vomiting, loss of appetite, weakness, other, No abdominal pain, No shortness of breath Hx Tetanus, Diphtheria Vaccination/Date Given: Yes Hx Influenza Vaccination/Date Given: Yes Hx Pneumococcal Vaccination/Date Given: Yes <AGUSTIN AYALA - Last Filed: 04/28/24 19:15> <RAFFAELE ORELLANA - Last Filed: 04/29/24 06:14> - History of Present Illness Time Seen by Provider: 04/28/24 16:24 Physician History: This is a 79-year-old white female patient of Dr. Chaney who was brought to the emergency department by the assistant designer service. Patient has been vomiting for 3 days and today was more confused and had lethargy and the family called the paramedics to transport the patient to the hospital. [facility] report stated that the blood sugar was 495. The patient, had a fractured C-spine of couple weeks ago and has a neck/back brace in place. Patient has no complaints of pain. However she is lethargic but arousable. She has a history of insulin- dependent diabetes, gastroesophageal reflux disease, hyperlipidemia, osteoporosis, hypertension. Narcan is listed on her medication list. (AGUSTIN AYALA) Allergies/Adverse Reactions: adhesive Allergy (Verified 04/28/24 16:41) Penicillins Allergy (Verified 04/28/24 16:41) Hives Sulfa (Sulfonamide Antibiotics) Allergy (Verified 04/28/24 16:41) Rash sulfamethoxazole [From Bactrim] Allergy (Verified 04/28/24 16:41) Hives scopolamine Adverse Reaction (Verified 04/28/24 16:41) confusion Home Medications: SUMAtriptan succinate [Imitrex] 100 mg PO DAILY PRN PRN 12/19/13 [History] Alendronate Sodium 70 mg [Fosamax 70 MG] 70 mg PO WEEKLY 02/11/18 [History] Ergocalciferol (Vitamin D2) [Vitamin D2] 1.25 mg PO Q7D 02/11/18 [History] Paroxetine HCl 20 mg [Paxil 20 MG] 40 mg PO DAILY 02/11/18 [History] Famotidine [Pepcid] 40 mg PO HS 09/19/21 [History] Furosemide 40 mg [Lasix 40 MG] 80 mg PO DAILY 09/19/21 [History] Gabapentin 100 mg PO TID 09/19/21 [History] Sildenafil Citrate [Viagra] 25 mg PO TID 09/19/21 [History] Atorvastatin Calcium [Lipitor] 40 mg PO DAILY 02/28/24 [History] Clopidogrel Bisulfate [PLAVIX Tablet] 75 mg PO DAILY 02/28/24 [History] Dextroamphetamine/Amphetamine [Dextroamp-Amphetamin 30 mg Tab] 30 mg PO DAILY 02/28/24 [History] Insulin Aspart [NovoLOG Insulin] 18 unit SQ 0800,1200 02/28/24 [History] Insulin Aspart [NovoLOG Insulin] 24 unit SQ 1700 02/28/24 [History] Insulin Glargine,Hum.rec.anlog [Basaglar Kwikpen U-100] 34 unit SQ HS 02/28/24 [History] Metoprolol Tartrate 50 mg [Lopressor 50 MG] 50 mg PO BID 02/28/24 [History] Multivitamin with Minerals [Daily Vitamin Formula-Minerals] 1 tab PO DAILY 02/28/24 [History] Potassium Chloride 20 meq PO HS 02/28/24 [History] Travel Risk - International Travel Have you traveled outside of the country in past 3 weeks: No - Emerging Infectious Disease Are you exhibiting symptoms associated with any current EIDs: No Symptoms: Vomitting <AGUSTIN AYALA - Last Filed: 04/28/24 19:15> - Review of Systems Constitutional: Lethargy, Weakness Eyes: No Symptoms Ears, Nose, & Throat: No Symptoms Respiratory: No Symptoms Cardiac: No Symptoms Abdominal/Gastrointestinal: Nausea, Vomiting, Appetite Changes, No Abdominal Pain Musculoskeletal: No Symptoms Skin: No Symptoms Neurological: Lethargy Psychological: No Symptoms Endocrine: No Symptoms Hematologic/Lymphatic: No Symptoms Immunological/Allergic: No Symptoms All Other Systems: Reviewed and Negative <AGUSTIN AYALA - Last Filed: 04/28/24 19:15> - Past Medical History Pertinent Past Medical History: Yes Neurological History: Migraines ENT History: Cataracts Cardiac History: High Cholesterol, Hypertension Respiratory History: Other Endocrine Medical History: Diabetes Type I, Hypothyroidism Musculoskeletal History: Arthritis GI Medical History: No Pertinent History History: No Pertinent History Psycho-Social History: Depression Female Reproductive Disorders: No Pertinent History Other Medical History: Pulmonary HTN - Past Surgical History Past Surgical History: Yes Neuro Surgical History: No Pertinent History Cardiac: No Pertinent History Respiratory: No Pertinent History Gastrointestinal: No Pertinent History Genitourinary: No Pertinent History Musculoskeletal: No Pertinent History Female Surgical History: Tubal Ligation Other Surgical History: BUNIONS REMOVED CYST REMOVED FROM BACK - Social History Smoking Status: Never smoker Exposure to second hand smoke: No Drug Use: none Patient Lives Alone: No - Social Determinants of Health Will the patient participate in the screening: Yes Do you worry about a steady place to live?: No In the past 12 months,have you had to go without utilities?: No Transportation Issues: No Has anyone in your support network made you feel unsafe?: No Have you or anyone in your house had to go without enough: No <AGUSTIN AYALA - Last Filed: 04/28/24 19:15> - Physical Exam General Appearance: moderate distress, lethargy Eye Exam: PERRL/EOMI, eyes nml inspection Ears, Nose, Throat Exam: normal ENT inspection, dry mucous membranes Neck Exam: normal inspection, non-tender, supple, full range of motion Respiratory Exam: normal breath sounds, lungs clear, airway intact, No chest tenderness, No respiratory distress Cardiovascular Exam: regular rate/rhythm, normal heart sounds, normal peripheral pulses Gastrointestinal/Abdomen Exam: soft, normal bowel sounds, No tenderness Pelvic Exam: not done Rectal Exam: not done Back Exam: normal inspection, normal range of motion, No CVA tenderness, No vertebral tenderness Extremity Exam: normal inspection, normal range of motion, pelvis stable Neurologic Exam: confusion, other (Patient confused with lethargy) Lymphatic Exam: No adenopathy SpO2 Interpretation: ABG ordered, O2 applied O2 Delivery: Room Air <AGUSTIN AYALA - Last Filed: 04/28/24 19:15> - Nursing Vital Signs Nursing Vital Signs: Initial Vital Signs Temperature 97.4 F 04/28/24 16:21 Pulse Rate 90 04/28/24 16:21 Respiratory Rate 20 04/28/24 16:21 Blood Pressure 120/64 04/28/24 16:21 Pain Scale Pain Intensity 0 - Course Nursing assessment & vital signs reviewed: Yes EKG Interpreted by Me: RATE (88), Sinus Rhythm, NORMAL AXIS, NORMAL INTERVALS, NORMAL QRS, Other (No acute ischemic changes on today's twelve-lead EKG.) <AGUSTIN AYALA - Last Filed: 04/28/24 19:15> Ordered Tests: Active Orders 24 hr Category Date Time Status Admit as Inpatient ROUTINE Care 04/28/24 22:21 Active Call Admit Doctor for Orders ON ADMISSION Care 04/28/24 22:21 Active Criminal Investigator Customs STAT Care 04/28/24 16:24 Completed Code Status Order ROUTINE Care 04/28/24 22:21 Active Rosas [Catheter-Odell Rosas] STAT Care 04/28/24 17:48 Completed IV Insertion STAT Care 04/28/24 16:24 Completed POCT Glucose Check ONCE Care 04/28/24 16:24 Completed Pulse Oximetry (ED) STAT Care 04/28/24 16:24 Completed Telemetry q6h Care 04/28/24 22:21 Active NPO Diet 04/28/24 22:22 Active CHEST 1 VIEW (PORTABLE) Stat Exams 04/28/24 18:29 Taken HEAD WITHOUT CONTRAST [CT] Stat Exams 04/28/24 18:27 Taken ARTERIAL BLOOD GASES Stat Lab 04/28/24 19:21 Completed CBC W DIFF Stat Lab 04/28/24 16:40 Completed CMP Stat Lab 04/28/24 16:40 Completed CULTURE,URINE Stat Lab 04/28/24 18:00 Received Glucose Stat Lab 04/28/24 20:05 Completed Lactic Acid Routine Lab 04/28/24 21:30 Completed Lactic Acid Stat Lab 04/28/24 18:44 Completed Lactic Acid Urgent Lab 04/28/24 16:38 Completed MAGNESIUM Stat Lab 04/28/24 16:40 Completed MONO SCREEN Stat Lab 04/28/24 16:40 Completed POCT GLUCOSE Stat Lab 04/28/24 22:11 Completed TROPONIN Q4H Lab 04/28/24 18:30 Completed TROPONIN Q4H Lab 04/28/24 21:40 Completed UA W/RFX UR CULTURE Stat Lab 04/28/24 18:00 Completed Medication Summary Generic Name Dose Route Start Last Admin Trade Name Freq PRN Reason Stop Dose Admin Acetaminophen 650 mg 04/28/24 22:52 Acetaminophen 325 Mg Tablet PO 05/28/24 22:51 Q6H PRN PRN PAIN AND/OR FEVER Heparin Sodium (Beef Lung) 5,000 unit 04/29/24 06:00 04/29/24 05:20 Heparin 5000 Units/0.5 Ml 5,000 Unit/0.5 Ml Syr SQ 05/29/24 05:59 5,000 unit Q8HT OLGA LIDIA Administration INSULIN REGULAR IN 0.9 % NACL 100 unit in 100 mls @ 9.072 mls/hr 04/28/24 18:26 04/29/24 05:19 Myxredlin 100 Unit/100 Ml Bag IV 05/28/24 18:25 0.13 unit/kg/hr .Q11H2M PRN 12 mls/hr HYPERGLYCEMIA Titration Protocol 0.1 UNIT/KG/HR Sodium Chloride 1,000 mls @ 999 mls/hr 04/29/24 03:00 04/29/24 02:53 Sodium Chloride 0.9% 1000 Ml IV 04/29/24 04:00 999 mls/hr .Q1H1M OLGA LIDIA Administration Potassium Chloride/Sodium Chloride 1,000 mls @ 250 mls/hr 04/29/24 03:00 04/29/24 03:53 Sodium Chloride 0.45% W/ 20 Meq Kcl IV 05/29/24 02:59 250 mls/hr .Q4H OLGA LIDIA Administration Potassium Chloride/Dextrose/Sod Cl 1,000 mls @ 250 mls/hr 04/29/24 04:30 04/29/24 04:10 D5w/0.45ns W/ 20meq Kcl 1000 Ml IV 05/29/24 04:29 250 mls/hr .Q4H OLGA LIDIA Administration Ondansetron HCl 4 mg 04/28/24 22:52 Ondansetron Hcl 4 Mg/2 Ml Vial IV 05/28/24 22:51 Q6H PRN PRN NAUSEA/VOMITING Discontinued Medications Generic Name Dose Route Start Last Admin Trade Name Miguelina PRN Reason Stop Dose Admin Calcium Gluconate 1,000 mg 04/28/24 17:21 04/28/24 17:38 Calcium Gluconate 1000 Mg/10 Ml Vial IV 04/28/24 17:22 1,000 mg STAT ONE Administration Calcium Gluconate Confirm 04/28/24 17:34 Calcium Gluconate 1000 Mg/10 Ml Vial Administered 04/28/24 17:35 Dose 1,000 mg IV .STK-MED ONE Furosemide 40 mg 04/28/24 17:23 04/28/24 17:37 Furosemide 40 Mg/4 Ml Vial IV 04/28/24 17:24 40 mg STAT ONE Administration Furosemide Confirm 04/28/24 17:35 Furosemide 40 Mg/4 Ml Vial Administered 04/28/24 17:36 Dose 40 mg .ROUTE .STK-MED ONE Sodium Chloride 1,000 mls @ 999 mls/hr 04/28/24 16:24 04/28/24 18:02 Sodium Chloride 0.9% 1000 Ml IV 04/28/24 17:24 Infused .Q1H1M STA Infusion Sodium Chloride Confirm 04/28/24 16:43 Sodium Chloride 0.9% 1000 Ml Administered 04/28/24 16:44 Dose 1,000 mls @ ud .ROUTE .STK-MED ONE Sodium Chloride 1,000 mls @ 999 mls/hr 04/28/24 20:37 04/28/24 20:45 Sodium Chloride 0.9% 1000 Ml IV 04/28/24 21:37 999 mls/hr .Q1H1M STA Administration Sodium Chloride Confirm 04/28/24 20:41 Sodium Chloride 0.9% 1000 Ml Administered 04/28/24 20:42 Dose 1,000 mls @ ud .ROUTE .STK-MED ONE Sodium Chloride 1,000 mls @ 250 mls/hr 04/28/24 23:00 04/28/24 23:05 Sodium Chloride 0.45% 1000 Ml IV 05/28/24 22:59 250 mls/hr .Q4H OLGA LIDIA Administration Sodium Chloride Confirm 04/28/24 23:04 Sodium Chloride 0.45% 1000 Ml Administered 04/28/24 23:05 Dose 1,000 mls @ ud IV .STK-MED ONE Insulin Human Regular 18 unit 04/28/24 17:20 04/28/24 17:38 Insulin Regular, Human 1 Unit IV 04/28/24 17:21 18 unit STAT ONE Administration Insulin Human Regular Confirm 04/28/24 17:35 Insulin Regular, Human 1 Unit Administered 04/28/24 17:36 Dose 18 unit .ROUTE .STK-MED ONE Ondansetron HCl 4 mg 04/28/24 16:24 04/28/24 16:48 Ondansetron Hcl 4 Mg/2 Ml Vial IV 04/28/24 16:25 4 mg STAT ONE Administration Ondansetron HCl Confirm 04/28/24 16:43 Ondansetron Hcl 4 Mg/2 Ml Vial Administered 04/28/24 16:44 Dose 4 mg .ROUTE .STK-MED ONE Pantoprazole Sodium 40 mg 04/28/24 18:26 04/28/24 18:34 Pantoprazole 40 Mg Vial IV 04/28/24 18:27 40 mg STAT ONE Administration Pantoprazole Sodium Confirm 04/28/24 18:32 Pantoprazole 40 Mg Vial Administered 04/28/24 18:33 Dose 40 mg IV .STK-MED ONE Lab/Rad Data: Laboratory Result Diagrams 04/28/24 16:40 04/28/24 21:40 Laboratory Results 04/28/24 04/28/24 04/28/24 Range/Units 22:11 21:40 21:40 WBC (3.98-10.04) x10^3/uL RBC (3.93-5.22) x10^6/uL Hgb (11.2-15.7) g/dL Hct (34.1-44.9) % MCV (79.4-94.8) fL MCH (25.6-32.2) pg MCHC (32.2-35.5) g/dL RDW (11.7-14.4) % Plt Count (182-369) x10^3/uL MPV (9.4-12.3) fL Gran % (34.0-71.1) % Immature Gran % (Auto) (0.001-0.429) % Nucleat RBC Rel Count (0.00-0.2) % Eos # (Auto) (0.04-0.36) x10^3/uL Immature Gran # (Auto) (0.001-0.031) x10^3u/L Absolute Lymphs (auto) (1.18-3.74) x10^3/uL Absolute Monos (auto) (0.24-0.86) x10^3/uL Absolute Nucleated RBC (0.00-0.012) x10^3u/L Lymphocytes % (19.3-51.7) % Monocytes % (4.7-12.5) % Eosinophils % (0.7-5.8) % Basophils % (0.1-1.2) % Absolute Granulocytes (1.56-6.13) x10^3/uL Basophils # (0.01-0.08) x10^3/uL Puncture Site pCO2 (35-45) mmHg pO2 (75-100) mmHg Base Excess (-2.0-2.0) O2 Saturation (94-100) g/dF ABG pH (7.35-7.45) ABG HCO3 (22-28) ABG O2 Sat (Measured) (95-100) % Emanuel Test A-a Gradient a/A Ratio Hemoglobin Carboxyhemoglobin (0.0-6.9) % THgb Methemoglobin (1.4-1.5) % Temperature C POC O2 Flow Rate % Sodium 138 (135-145) mmol/L Potassium 4.3 D (3.5-5.1) mmol/L Chloride 102 (98-107) mmol/L Carbon Dioxide 7 L* (22-30) mmol/L Anion Gap 33.4 H BUN 55 H (7-17) mg/dL Creatinine 1.76 H (0.52-1.04) mg/dL Estimated GFR 29.3 ML/MIN Glucose 626 H* (74-106) mg/dL POC Glucometer 533 H* (50 to 500) mg/dL Lactic Acid (0.4-2.0) Calcium 9.1 (8.4-10.2) mg/dL Magnesium (1.6-2.3) mg/dL Total Bilirubin (0.2-1.3) mg/dL AST (14-36) U/L ALT (0-35) U/L Alkaline Phosphatase (38-126) U/L Ammonia (9-30) umol/L Troponin I 0.050 H* (0.000-0.033) ng/mL Serum Total Protein (6.3-8.2) g/dL Albumin (3.5-5.0) g/dL Urine Color (Yellow) Urine Appearance (Clear) Urine pH (4.6-8.0) Ur Specific Seguin (1.005-1.030) Urine Protein (Negative) Urine Glucose (UA) (Negative) mg/dL Urine Ketones (Negative) Urine Blood (Negative) Urine Nitrite (Negative) Urine Bilirubin (Negative) Urine Urobilinogen (0.2) mg/dL Ur Leukocyte Esterase (Negative) U Hyaline Cast (Auto) (0-2) /LPF Urine Microscopic RBC (0-5) /HPF Urine Microscopic WBC (0-5) /HPF Ur Epithelial Cells (None Seen) /HPF Urine Bacteria (None Seen) /HPF Urine Culture Reflexed (NO) Monoscreen (NEGATIVE) Influenza Type A Ag (NEGATIVE) Influenza Type B Ag (NEGATIVE) RSV (PCR) (NEGATIVE) SARS-CoV-2 (PCR) (NEGATIVE) 04/28/24 04/28/24 04/28/24 Range/Units 21:30 20:05 19:21 WBC (3.98-10.04) x10^3/uL RBC (3.93-5.22) x10^6/uL Hgb (11.2-15.7) g/dL Hct (34.1-44.9) % MCV (79.4-94.8) fL MCH (25.6-32.2) pg MCHC (32.2-35.5) g/dL RDW (11.7-14.4) % Plt Count (182-369) x10^3/uL MPV (9.4-12.3) fL Gran % (34.0-71.1) % Immature Gran % (Auto) (0.001-0.429) % Nucleat RBC Rel Count (0.00-0.2) % Eos # (Auto) (0.04-0.36) x10^3/uL Immature Gran # (Auto) (0.001-0.031) x10^3u/L Absolute Lymphs (auto) (1.18-3.74) x10^3/uL Absolute Monos (auto) (0.24-0.86) x10^3/uL Absolute Nucleated RBC (0.00-0.012) x10^3u/L Lymphocytes % (19.3-51.7) % Monocytes % (4.7-12.5) % Eosinophils % (0.7-5.8) % Basophils % (0.1-1.2) % Absolute Granulocytes (1.56-6.13) x10^3/uL Basophils # (0.01-0.08) x10^3/uL Puncture Site RRA pCO2 24 L (35-45) mmHg pO2 107 H (75-100) mmHg Base Excess -19.2 L (-2.0-2.0) O2 Saturation 96.6 (94-100) g/dF ABG pH 7.14 L* (7.35-7.45) ABG HCO3 8.2 L* (22-28) ABG O2 Sat (Measured) 98.7 (95-100) % Emanuel Test yes A-a Gradient 13 a/A Ratio 0.89 Hemoglobin 12.6 Carboxyhemoglobin 1.1 (0.0-6.9) % THgb Methemoglobin 1.0 L (1.4-1.5) % Temperature 37.0 C POC O2 Flow Rate 21 % Sodium (135-145) mmol/L Potassium 4.4 (3.5-5.1) mmol/L Chloride (98-107) mmol/L Carbon Dioxide (22-30) mmol/L Anion Gap BUN (7-17) mg/dL Creatinine (0.52-1.04) mg/dL Estimated GFR ML/MIN Glucose 758 H* (74-106) mg/dL POC Glucometer (50 to 500) mg/dL Lactic Acid 4.0 H (0.4-2.0) Calcium (8.4-10.2) mg/dL Magnesium (1.6-2.3) mg/dL Total Bilirubin (0.2-1.3) mg/dL AST (14-36) U/L ALT (0-35) U/L Alkaline Phosphatase (38-126) U/L Ammonia (9-30) umol/L Troponin I (0.000-0.033) ng/mL Serum Total Protein (6.3-8.2) g/dL Albumin (3.5-5.0) g/dL Urine Color (Yellow) Urine Appearance (Clear) Urine pH (4.6-8.0) Ur Specific Seguin (1.005-1.030) Urine Protein (Negative) Urine Glucose (UA) (Negative) mg/dL Urine Ketones (Negative) Urine Blood (Negative) Urine Nitrite (Negative) Urine Bilirubin (Negative) Urine Urobilinogen (0.2) mg/dL Ur Leukocyte Esterase (Negative) U Hyaline Cast (Auto) (0-2) /LPF Urine Microscopic RBC (0-5) /HPF Urine Microscopic WBC (0-5) /HPF Ur Epithelial Cells (None Seen) /HPF Urine Bacteria (None Seen) /HPF Urine Culture Reflexed (NO) Monoscreen (NEGATIVE) Influenza Type A Ag (NEGATIVE) Influenza Type B Ag (NEGATIVE) RSV (PCR) (NEGATIVE) SARS-CoV-2 (PCR) (NEGATIVE) 04/28/24 04/28/24 04/28/24 Range/Units 18:44 18:30 18:20 WBC (3.98-10.04) x10^3/uL RBC (3.93-5.22) x10^6/uL Hgb (11.2-15.7) g/dL Hct (34.1-44.9) % MCV (79.4-94.8) fL MCH (25.6-32.2) pg MCHC (32.2-35.5) g/dL RDW (11.7-14.4) % Plt Count (182-369) x10^3/uL MPV (9.4-12.3) fL Gran % (34.0-71.1) % Immature Gran % (Auto) (0.001-0.429) % Nucleat RBC Rel Count (0.00-0.2) % Eos # (Auto) (0.04-0.36) x10^3/uL Immature Gran # (Auto) (0.001-0.031) x10^3u/L Absolute Lymphs (auto) (1.18-3.74) x10^3/uL Absolute Monos (auto) (0.24-0.86) x10^3/uL Absolute Nucleated RBC (0.00-0.012) x10^3u/L Lymphocytes % (19.3-51.7) % Monocytes % (4.7-12.5) % Eosinophils % (0.7-5.8) % Basophils % (0.1-1.2) % Absolute Granulocytes (1.56-6.13) x10^3/uL Basophils # (0.01-0.08) x10^3/uL Puncture Site pCO2 (35-45) mmHg pO2 (75-100) mmHg Base Excess (-2.0-2.0) O2 Saturation (94-100) g/dF ABG pH (7.35-7.45) ABG HCO3 (22-28) ABG O2 Sat (Measured) (95-100) % Emanuel Test A-a Gradient a/A Ratio Hemoglobin Carboxyhemoglobin (0.0-6.9) % THgb Methemoglobin (1.4-1.5) % Temperature C POC O2 Flow Rate % Sodium (135-145) mmol/L Potassium (3.5-5.1) mmol/L Chloride (98-107) mmol/L Carbon Dioxide (22-30) mmol/L Anion Gap BUN (7-17) mg/dL Creatinine (0.52-1.04) mg/dL Estimated GFR ML/MIN Glucose (74-106) mg/dL POC Glucometer (50 to 500) mg/dL Lactic Acid 5.0 H (0.4-2.0) Calcium (8.4-10.2) mg/dL Magnesium (1.6-2.3) mg/dL Total Bilirubin (0.2-1.3) mg/dL AST (14-36) U/L ALT (0-35) U/L Alkaline Phosphatase (38-126) U/L Ammonia < 9 L (9-30) umol/L Troponin I < 0.012 (0.000-0.033) ng/mL Serum Total Protein (6.3-8.2) g/dL Albumin (3.5-5.0) g/dL Urine Color (Yellow) Urine Appearance (Clear) Urine pH (4.6-8.0) Ur Specific Seguin (1.005-1.030) Urine Protein (Negative) Urine Glucose (UA) (Negative) mg/dL Urine Ketones (Negative) Urine Blood (Negative) Urine Nitrite (Negative) Urine Bilirubin (Negative) Urine Urobilinogen (0.2) mg/dL Ur Leukocyte Esterase (Negative) U Hyaline Cast (Auto) (0-2) /LPF Urine Microscopic RBC (0-5) /HPF Urine Microscopic WBC (0-5) /HPF Ur Epithelial Cells (None Seen) /HPF Urine Bacteria (None Seen) /HPF Urine Culture Reflexed (NO) Monoscreen (NEGATIVE) Influenza Type A Ag (NEGATIVE) Influenza Type B Ag (NEGATIVE) RSV (PCR) (NEGATIVE) SARS-CoV-2 (PCR) (NEGATIVE) 04/28/24 04/28/24 04/28/24 Range/Units 18:00 16:40 16:40 WBC (3.98-10.04) x10^3/uL RBC (3.93-5.22) x10^6/uL Hgb (11.2-15.7) g/dL Hct (34.1-44.9) % MCV (79.4-94.8) fL MCH (25.6-32.2) pg MCHC (32.2-35.5) g/dL RDW (11.7-14.4) % Plt Count (182-369) x10^3/uL MPV (9.4-12.3) fL Gran % (34.0-71.1) % Immature Gran % (Auto) (0.001-0.429) % Nucleat RBC Rel Count (0.00-0.2) % Eos # (Auto) (0.04-0.36) x10^3/uL Immature Gran # (Auto) (0.001-0.031) x10^3u/L Absolute Lymphs (auto) (1.18-3.74) x10^3/uL Absolute Monos (auto) (0.24-0.86) x10^3/uL Absolute Nucleated RBC (0.00-0.012) x10^3u/L Lymphocytes % (19.3-51.7) % Monocytes % (4.7-12.5) % Eosinophils % (0.7-5.8) % Basophils % (0.1-1.2) % Absolute Granulocytes (1.56-6.13) x10^3/uL Basophils # (0.01-0.08) x10^3/uL Puncture Site pCO2 (35-45) mmHg pO2 (75-100) mmHg Base Excess (-2.0-2.0) O2 Saturation (94-100) g/dF ABG pH (7.35-7.45) ABG HCO3 (22-28) ABG O2 Sat (Measured) (95-100) % Emanuel Test A-a Gradient a/A Ratio Hemoglobin Carboxyhemoglobin (0.0-6.9) % THgb Methemoglobin (1.4-1.5) % Temperature C POC O2 Flow Rate % Sodium (135-145) mmol/L Potassium (3.5-5.1) mmol/L Chloride (98-107) mmol/L Carbon Dioxide (22-30) mmol/L Anion Gap BUN (7-17) mg/dL Creatinine (0.52-1.04) mg/dL Estimated GFR ML/MIN Glucose (74-106) mg/dL POC Glucometer (50 to 500) mg/dL Lactic Acid (0.4-2.0) Calcium (8.4-10.2) mg/dL Magnesium (1.6-2.3) mg/dL Total Bilirubin (0.2-1.3) mg/dL AST (14-36) U/L ALT (0-35) U/L Alkaline Phosphatase (38-126) U/L Ammonia (9-30) umol/L Troponin I (0.000-0.033) ng/mL Serum Total Protein (6.3-8.2) g/dL Albumin (3.5-5.0) g/dL Urine Color Yellow (Yellow) Urine Appearance Clear (Clear) Urine pH 5.0 (4.6-8.0) Ur Specific Seguin 1.025 (1.005-1.030) Urine Protein Negative (Negative) Urine Glucose (UA) >=1000 A (Negative) mg/dL Urine Ketones 80 A (Negative) Urine Blood Negative (Negative) Urine Nitrite Negative (Negative) Urine Bilirubin Negative (Negative) Urine Urobilinogen 0.2 (0.2) mg/dL Ur Leukocyte Esterase Negative (Negative) U Hyaline Cast (Auto) NONE SEEN (0-2) /LPF Urine Microscopic RBC 0-2 (0-5) /HPF Urine Microscopic WBC 0-2 (0-5) /HPF Ur Epithelial Cells None Seen (None Seen) /HPF Urine Bacteria None Seen (None Seen) /HPF Urine Culture Reflexed YES (NO) Monoscreen NEGATIVE (NEGATIVE) Influenza Type A Ag NEGATIVE (NEGATIVE) Influenza Type B Ag NEGATIVE (NEGATIVE) RSV (PCR) NEGATIVE (NEGATIVE) SARS-CoV-2 (PCR) NEGATIVE (NEGATIVE) 04/28/24 04/28/24 04/28/24 Range/Units 16:40 16:40 16:38 WBC 15.1 H (3.98-10.04) x10^3/uL RBC 4.35 (3.93-5.22) x10^6/uL Hgb 12.8 (11.2-15.7) g/dL Hct 41.9 (34.1-44.9) % MCV 96.3 H (79.4-94.8) fL MCH 29.4 (25.6-32.2) pg MCHC 30.5 L (32.2-35.5) g/dL RDW 12.3 (11.7-14.4) % Plt Count 334 (182-369) x10^3/uL MPV 10.9 (9.4-12.3) fL Gran % 85.4 H (34.0-71.1) % Immature Gran % (Auto) 1.4 H (0.001-0.429) % Nucleat RBC Rel Count 0.0 (0.00-0.2) % Eos # (Auto) 0 L (0.04-0.36) x10^3/uL Immature Gran # (Auto) 0.21 H (0.001-0.031) x10^3u/L Absolute Lymphs (auto) 1.23 (1.18-3.74) x10^3/uL Absolute Monos (auto) 0.67 (0.24-0.86) x10^3/uL Absolute Nucleated RBC 0.00 (0.00-0.012) x10^3u/L Lymphocytes % 8.2 L (19.3-51.7) % Monocytes % 4.4 L (4.7-12.5) % Eosinophils % 0.0 L (0.7-5.8) % Basophils % 0.6 (0.1-1.2) % Absolute Granulocytes 12.89 H (1.56-6.13) x10^3/uL Basophils # 0.09 H (0.01-0.08) x10^3/uL Puncture Site pCO2 (35-45) mmHg pO2 (75-100) mmHg Base Excess (-2.0-2.0) O2 Saturation (94-100) g/dF ABG pH (7.35-7.45) ABG HCO3 (22-28) ABG O2 Sat (Measured) (95-100) % Emanuel Test A-a Gradient a/A Ratio Hemoglobin Carboxyhemoglobin (0.0-6.9) % THgb Methemoglobin (1.4-1.5) % Temperature C POC O2 Flow Rate % Sodium 132 L (135-145) mmol/L Potassium 6.0 H* (3.5-5.1) mmol/L Chloride 92 L (98-107) mmol/L Carbon Dioxide < 5 L* (22-30) mmol/L Anion Gap TNP BUN 51 H (7-17) mg/dL Creatinine 1.81 H (0.52-1.04) mg/dL Estimated GFR 28.3 ML/MIN Glucose 933 H* (74-106) mg/dL POC Glucometer (50 to 500) mg/dL Lactic Acid 5.2 H (0.4-2.0) Calcium 9.6 (8.4-10.2) mg/dL Magnesium 2.2 (1.6-2.3) mg/dL Total Bilirubin 1.10 (0.2-1.3) mg/dL AST 31 (14-36) U/L ALT 27 (0-35) U/L Alkaline Phosphatase 129 H (38-126) U/L Ammonia (9-30) umol/L Troponin I (0.000-0.033) ng/mL Serum Total Protein 7.1 (6.3-8.2) g/dL Albumin 4.4 (3.5-5.0) g/dL Urine Color (Yellow) Urine Appearance (Clear) Urine pH (4.6-8.0) Ur Specific Seguin (1.005-1.030) Urine Protein (Negative) Urine Glucose (UA) (Negative) mg/dL Urine Ketones (Negative) Urine Blood (Negative) Urine Nitrite (Negative) Urine Bilirubin (Negative) Urine Urobilinogen (0.2) mg/dL Ur Leukocyte Esterase (Negative) U Hyaline Cast (Auto) (0-2) /LPF Urine Microscopic RBC (0-5) /HPF Urine Microscopic WBC (0-5) /HPF Ur Epithelial Cells (None Seen) /HPF Urine Bacteria (None Seen) /HPF Urine Culture Reflexed (NO) Monoscreen (NEGATIVE) Influenza Type A Ag (NEGATIVE) Influenza Type B Ag (NEGATIVE) RSV (PCR) (NEGATIVE) SARS-CoV-2 (PCR) (NEGATIVE) - Progress Progress: improved <AGUSTIN AYALA - Last Filed: 04/28/24 19:15> - Progress Counseled pt/family regarding: lab results, diagnosis, need for follow-up, rad results <RAFFAELE ORELLANA - Last Filed: 04/29/24 06:14> - Progress Progress Note: 04/28/24 18:24 My medical decision making and the assignment of moderate to high complexity was based on review of the patient's past medical history, review of the patient's medication list, review of the patient's history present illness review of the patient's drug allergy list and physical findings on examination. The workup in this patient includes placement of intravenous line, infusion of normal saline solution, CBC, CMP, magnesium level, urinalysis, ammonia level, CT scan of the head without contrast, twelve-lead EKG, intravenous Zofran, intravenous Protonix, viral swabs, monotest. Differential diagnosis includes but is not limited to viral illness, DKA, hyperglycemia, dehydration, urinary tract infection, acute intracranial abnormality, arrhythmia, myocardial infarction, electrolyte abnormalities 04/28/24 19:15 I am transferring care of this patient to Dr. Orellana at shift change. I reviewed the patient history, workup and the workup results that have returned. He will follow-up on pending studies and make final disposition. (AGUSTIN AYALA) Assumed care at [address] Ayala with head CT pending and need for ICU admission to treat DKA. CT head negative for acute findings. Discussed admission with Dr. Carrillo who accepts at 0832. (RAFFAELE ORELLANA) Medical Desision Making - Independent Historian Additional History obtained from: [facility] [place]/EMT - Risk of complications The pt has a high risk of morbidity or mortality based on: Decision regarding hospitilization or escalation of hosp level of care <AGUSTIN AYALA - Last Filed: 04/28/24 19:15> - Diagnostic Testing Diagnostic test were ordered, analyzed, and reviewed by me: Yes Radiological Interpretation: Interpreted by me, Reviewed by me, Teleradiologist Report - Risk of complications The pt has a mod risk of morbidity or mortality based on: Need for prescription drug management The pt has a high risk of morbidity or mortality based on: Decision regarding hospitilization or escalation of hosp level of care <RAFFAELE ORELLANA - Last Filed: 04/29/24 06:14> - Departure Departure Disposition: In-patient Admission Critical Care Time: Yes Critical Care Time(excluding separately billable procedures): Critical 30-74 mins (60) <AGUSTIN AYALA - Last Filed: 04/28/24 19:15> - Departure Departure Disposition: In-patient Admission <RAFFAELE ORELLANA - Last Filed: 04/29/24 06:14> - Departure Clinical Impression: DKA (diabetic ketoacidosis), Lethargy, Confusion Condition: Serious
[2024-04-28] MEDS ORDERED: Zofran 4 MG/2 ML VIAL ONE (16:43)
[2024-04-28] MEDS ORDERED: Sodium Chloride 0.9% 1000 ML 1,000 ML ONE ×2 (16:43→20:41)
[2024-04-28] MEDS: Sodium Chloride 0.9% 1000 ML 1,000 ML IV STA ×2 (16:45→20:45)
[2024-04-28 16:48] LABS: Absolute Neutrophil Ct (ANC) 12.89 x10^3/uL (1.56-6.13); BASOPHIL % 0.6 % (0.1-1.2); Basophil (Absolute #) 0.09 x10^3/uL (0.01-0.08); Eosinophil (Absolute #) 0 x10^3/uL (0.04-0.36); Hematocrit 41.9 % (34.1-44.9); Hemoglobin 12.8 g/dL (11.2-15.7); IMMATURE GRAN # 0.21 x10^3u/L (0.001-0.031); IMMATURE GRAN % 1.4 % (0.001-0.429); Lymphocyte (Absolute #) 1.23 x10^3/uL (1.18-3.74); Lymphocytes % 8.2 % (19.3-51.7); Mean Cell Volume 96.3 fL (79.4-94.8); Mean Corpuscular Hemoglobin 29.4 pg (25.6-32.2); Mean Corpuscular Hgb Concent. 30.5 g/dL (32.2-35.5); Mean Platelet Volume 10.9 fL (9.4-12.3); Monocyte (Absolute #) 0.67 x10^3/uL (0.24-0.86); Monocytes % 4.4 % (4.7-12.5); Neutrophil % 85.4 % (34.0-71.1); Platelet Count 334 x10^3/uL (182-369); Red Blood Count 4.35 x10^6/uL (3.93-5.22); Red Cell Distribution Width 12.3 % (11.7-14.4); White Blood Count 15.1 x10^3/uL (3.98-10.04)
[2024-04-28] MEDS: Zofran 4 MG/2 ML VIAL IV ONE (16:48)
[2024-04-28 17:02] LABS: ALBUMIN 4.4 g/dL (3.5-5.0); ALKALINE PHOSPHATASE 129 U/L (38-126); BLOOD UREA NITROGEN 51 mg/dL (7-17); CHLORIDE 92 mmol/L (98-107); Calcium 9.6 mg/dL (8.4-10.2); Creatinine 1 1.81 mg/dL (0.52-1.04); EST GLOMERULAR FILTRATION RATE 28.3 ML/MIN; MAGNESIUM 2.2 mg/dL (1.6-2.3); SGOT/AST 31 U/L (14-36); SGPT/ALT 27 U/L (0-35); SODIUM 132 mmol/L (135-145); Total Protein 7.1 g/dL (6.3-8.2)
[2024-04-28 17:14] LABS: Glucose 933 mg/dL (74-106)
[2024-04-28 17:15] LABS: Carbon Dioxide < 5 mmol/L (22-30)
[2024-04-28 17:26] LABS: INFLUENZA A NEGATIVE (NEGATIVE); INFLUENZA B NEGATIVE (NEGATIVE); RESPIRATORY SYNCTIAL VIRUS NEGATIVE (NEGATIVE); SARS-CoV-2 Xpert Express NEGATIVE (NEGATIVE)
[2024-04-28] MEDS ORDERED: Calcium Gluconate 10% 1000 MG IV ONE (17:34)
[2024-04-28] MEDS ORDERED: HUMULIN R ONE (17:35)
[2024-04-28] MEDS ORDERED: Lasix 40 MG/4 ML ONE (17:35)
[2024-04-28] MEDS: Lasix 40 MG/4 ML IV ONE (17:37)
[2024-04-28] MEDS: HUMULIN R IV ONE (17:38)
[2024-04-28] MEDS: Calcium Gluconate 10% 1000 MG IV ONE (17:38)
[2024-04-28 18:16] LABS: Appearance Clear (Clear); Bacteria None Seen /HPF (None Seen); Bilirubin Negative (Negative); Blood Negative (Negative); Epithelial Cells None Seen /HPF (None Seen); Glucose, Urine >=1000 mg/dL (Negative); Hyaline Casts NONE SEEN /LPF (0-2); Ketones 80 (Negative); Leukocyte Esterase Negative (Negative); Nitrite Negative (Negative); Protein,Urine Dip Negative (Negative); RBC 0-2 /HPF (0-5); Specific Gravity 1.025 (1.005-1.030); Urobilinogen 0.2 mg/dL (0.2); WBC 0-2 /HPF (0-5)
[2024-04-28] MEDS ORDERED: PROTONIX 40 MG IV IV ONE (18:32)
[2024-04-28] MEDS: PROTONIX 40 MG IV IV ONE (18:34)
[2024-04-28] MEDS: MYXREDLIN 100 UNIT/100 ML BAG 100 UNIT/100 ML PLAST..BAG IV PRN (18:34)
[2024-04-28 20:25] LABS: A-aADO2 13; ABG HEMOGLOBIN 12.6; ABG POTASSIUM 4.4 (3.5-5.1); ARTERIAL BLD GAS O2 SATURATION 98.7 % (95-100); ARTERIAL BLOOD GAS BASE EXCESS -19.2 (-2.0-2.0); ARTERIAL BLOOD GAS FIO2 21 %; ARTERIAL BLOOD GAS PCO2 24 mmHg (35-45); ARTERIAL BLOOD GAS PO2 107 mmHg (75-100); CARBOXYHEMOGLOBIN 1.1 % THgb (0.0-6.9); HCO3- 8.2 (22-28); HGB O2 SAT 96.6 g/dF (94-100); paO2 pAO1 0.89
[2024-04-28 20:26] LABS: ABG SITE RRA; ALLEN TEST OK? yes; ARTERIAL BLOOD GAS pH 7.14 (7.35-7.45)
[2024-04-28] MEDS ORDERED: TYLENOL 325 MG PO PRN (22:52)
[2024-04-28 23:06] LABS: ANION GAP 33.4 MEQ/L (5-15); Calcium 9.1 mg/dL (8.4-10.2); Creatinine 1 1.76 mg/dL (0.52-1.04); EST GLOMERULAR FILTRATION RATE 29.3 ML/MIN; Potassium 4.3 mmol/L (3.5-5.1)
[2024-04-28 23:15] LABS: Appearance Clear (Clear); Bacteria None Seen /HPF (None Seen); Bilirubin Negative (Negative); Blood Moderate (Negative); Epithelial Cells None Seen /HPF (None Seen); Glucose, Urine >=1000 mg/dL (Negative); Ketones 40 (Negative); Leukocyte Esterase Negative (Negative); Nitrite Negative (Negative); Protein,Urine Dip Negative (Negative); Urobilinogen 0.2 mg/dL (0.2); WBC 0-2 /HPF (0-5)
--- NOTE | 2024-04-29 00:48 | PCM.HP ---
History of Present Illness - Chief Complaint Chief Complaint: DKA, lethargy Date: 04/28/24 History of Present Illness: is a 79 year old female with history of type 2 diabetes, hypertension, GERD, and recent C-spine fracture, who presents with DKA. Note, history is obtained from chart, as patient is severely lethargic and unable to answer questions. Per ED physician, patient presented with a few days of progressive vomiting, and lethargy. She had a C-spine fracture a few weeks ago, and remains in a c-collar. On arrival, she was found to be in DKA. In the ED, she was initially given 1 L normal saline, but also given Lasix and calcium for hyperkalemia. Upon discussion with oncoming evening ED provider, patient was asked to be given another liter of fluid and started on insulin drip per DKA protocol. Unable to obtain any further history from patient secondary to mental status. - Review of Systems All Other Systems: Unable due to condition Medications & Allergies Home Medications: Home Medication List SUMAtriptan succinate [Imitrex] 100 mg PO DAILY PRN PRN 12/19/13 [History Confirmed 02/28/24] Alendronate Sodium 70 mg [Fosamax 70 MG] 70 mg PO WEEKLY 02/11/18 [History Confirmed 02/28/24] Ergocalciferol (Vitamin D2) [Vitamin D2] 1.25 mg PO Q7D 02/11/18 [History Confirmed 02/28/24] Paroxetine HCl 20 mg [Paxil 20 MG] 40 mg PO DAILY 02/11/18 [History Confirmed 02/28/24] Famotidine [Pepcid] 40 mg PO HS 09/19/21 [History Confirmed 02/28/24] Furosemide 40 mg [Lasix 40 MG] 80 mg PO DAILY 09/19/21 [History Confirmed 02/28/24] Gabapentin 100 mg PO TID 09/19/21 [History Confirmed 02/28/24] Sildenafil Citrate [Viagra] 25 mg PO TID 09/19/21 [History Confirmed 02/28/24] Atorvastatin Calcium [Lipitor] 40 mg PO DAILY 02/28/24 [History Confirmed 12/14] Clopidogrel Bisulfate [PLAVIX Tablet] 75 mg PO DAILY 02/28/24 [History Confirmed 02/28/24] Dextroamphetamine/Amphetamine [Dextroamp-Amphetamin 30 mg Tab] 30 mg PO DAILY 02/28/24 [History Confirmed 02/28/24] Insulin Aspart [NovoLOG Insulin] 18 unit SQ 0800,1200 02/28/24 [History Confirmed 02/28/24] Insulin Aspart [NovoLOG Insulin] 24 unit SQ 1700 02/28/24 [History Confirmed 02/28/24] Insulin Glargine,Hum.rec.anlog [Basaglar Kwikpen U-100] 34 unit SQ HS 02/28/24 [History Confirmed 02/28/24] Metoprolol Tartrate 50 mg [Lopressor 50 MG] 50 mg PO BID 02/28/24 [History Confirmed 02/28/24] Multivitamin with Minerals [Daily Vitamin Formula-Minerals] 1 tab PO DAILY 02/28/24 [History Confirmed 02/28/24] Potassium Chloride 20 meq PO HS 02/28/24 [History Confirmed 02/28/24] Hydrocodone/Acetaminophen [Hydrocodone-Acetamin 5-325 mg] 1 tab PO Q6HPRN PRN 3 Days #12 tablet MDD 4 03/01/24 [Rx] Naloxone HCl [Narcan] 4 mg NS DAILY PRN PRN 1 Days #1 blist 03/01/24 [Rx] cefuroxime axetiL [Cefuroxime] 500 mg PO BID 1 Days #2 tablet 03/01/24 [Rx] Allergies/Adverse Reactions: Allergies Allergy/AdvReac Type Severity Reaction Status Date / Time adhesive Allergy Verified 04/28/24 16:41 Penicillins Allergy Hives Verified 04/28/24 16:41 Sulfa (Sulfonamide Allergy Rash Verified 04/28/24 16:41 Antibiotics) sulfamethoxazole Allergy Hives Verified 04/28/24 16:41 [From Bactrim] scopolamine AdvReac confusion Verified 04/28/24 16:41 - Past Medical History Past Medical History: Yes Neurological History: Migraines ENT History: Cataracts Cardiac History: High Cholesterol, Hypertension Respiratory History: Other Endocrine Medical History: Diabetes Type I, Hypothyroidism Musculoskelatal History: Arthritis GI Medical History: No Pertinent History History: No Pertinent History Pyscho-Social History: Depression Reproductive Disorders: No Pertinent History Comment: Pulmonary HTN - Past Surgical History Past Surgical History: Yes Neuro Surgical History: No Pertinent History Cardiac History: No Pertinent History Respiratory Surgery: No Pertinent History GI Surgical History: No Pertinent History Genitourinary Surgical Hx: No Pertinent History Musculskeletal Surgical Hx: No Pertinent History Female Surgical History: Tubal Ligation Other Surgical History: BUNIONS REMOVED CYST REMOVED FROM BACK Significant Family History: other (Unable to be obtained due to patient's mental status) - Social History Smoking Status: Unknown if ever smoked Exposure to second hand smoke: No Alcohol: Rarely Drug Use: none - Social Determinants of Health Will the patient participate in the screening: Unable to obtain Do you worry about a steady place to live?: No Do you have any problems with any of the following?: No known problems In the past 12 months,have you had to go without utilities?: No Have you or anyone in your house had to go without enough: No Transportation Issues: No Has anyone in your support network made you feel unsafe?: No Does the patient want assistance with any of the above?: No - Physical Exam Vital Signs: Vital Signs - 24 hr Temp Pulse Resp BP BP Pulse Ox 04/29/24 00:01 74 04/29/24 00:00 98.6 F 72 20 116/42 98 04/28/24 23:30 75 20 105/45 96 04/28/24 23:24 97.7 F 74 18 116/46 100 04/28/24 23:00 74 22 95/42 100 04/28/24 22:00 71 18 92/54 100 04/28/24 21:45 71 23 99/53 95 04/28/24 21:30 78 20 100/79 94 L 04/28/24 21:15 79 21 109/54 04/28/24 21:00 80 19 107/52 100 04/28/24 20:45 81 17 95/49 68 L 04/28/24 20:30 82 21 89/59 93 L 04/28/24 20:15 83 18 93/52 04/28/24 20:00 84 20 73/38 04/28/24 19:45 90 15 76/41 04/28/24 19:30 85 22 84/50 04/28/24 19:15 92 H 21 80/45 90 L 04/28/24 19:07 91 H 24 93/55 69 L 04/28/24 18:45 94 H 22 79/45 88 L 04/28/24 18:38 92 H 29 H 91/56 88 L 04/28/24 18:30 94 H 24 70/52 04/28/24 18:15 94 H 17 85/53 04/28/24 18:00 97 H 22 83/51 04/28/24 17:58 99 H 23 95/53 88 L 04/28/24 17:45 99 H 19 66/48 04/28/24 17:30 91 H 21 97/64 100 04/28/24 17:27 91 H 18 92/60 100 04/28/24 17:26 89 22 99 04/28/24 17:20 90 25 H 04/28/24 17:10 88 13 04/28/24 17:00 88 23 96 04/28/24 16:50 89 22 97 04/28/24 16:43 87 23 04/28/24 16:34 97 04/28/24 16:21 97.4 F 90 20 120/64 General Appearance: no apparent distress Neurologic Exam: other (Lethargic, not answering questions or following commands) Eye Exam: eyes nml inspection (One briefly open) Ears, Nose, Throat Exam: dry mucous membranes Neck Exam: normal inspection, non-tender Respiratory Exam: normal breath sounds, lungs clear, other (On 1 L oxygen by nasal cannula) Cardiovascular Exam: regular rate/rhythm, normal heart sounds, No edema Gastrointestinal/Abdomen Exam: normal bowel sounds, No distention Back Exam: normal inspection, No rash Extremity Exam: No joint swelling, No swelling, No tenderness Skin Exam: dry, No rash Results - Labs Lab/Micro Results: Lab Results-Last 24 Hours 04/28/24 04/28/24 04/28/24 Range/Units 16:38 16:40 16:40 WBC 15.1 H (3.98-10.04) x10^3/uL RBC 4.35 (3.93-5.22) x10^6/uL Hgb 12.8 (11.2-15.7) g/dL Hct 41.9 (34.1-44.9) % MCV 96.3 H (79.4-94.8) fL MCH 29.4 (25.6-32.2) pg MCHC 30.5 L (32.2-35.5) g/dL RDW 12.3 (11.7-14.4) % Plt Count 334 (182-369) x10^3/uL MPV 10.9 (9.4-12.3) fL Gran % 85.4 H (34.0-71.1) % Immature Gran % (Auto) 1.4 H (0.001-0.429) % Nucleat RBC Rel Count 0.0 (0.00-0.2) % Eos # (Auto) 0 L (0.04-0.36) x10^3/uL Immature Gran # (Auto) 0.21 H (0.001-0.031) x10^3u/L Absolute Lymphs (auto) 1.23 (1.18-3.74) x10^3/uL Absolute Monos (auto) 0.67 (0.24-0.86) x10^3/uL Absolute Nucleated RBC 0.00 (0.00-0.012) x10^3u/L Lymphocytes % 8.2 L (19.3-51.7) % Monocytes % 4.4 L (4.7-12.5) % Eosinophils % 0.0 L (0.7-5.8) % Basophils % 0.6 (0.1-1.2) % Absolute Granulocytes 12.89 H (1.56-6.13) x10^3/uL Basophils # 0.09 H (0.01-0.08) x10^3/uL Puncture Site pCO2 (35-45) mmHg pO2 (75-100) mmHg Base Excess (-2.0-2.0) O2 Saturation (94-100) g/dF ABG pH (7.35-7.45) ABG HCO3 (22-28) ABG O2 Sat (Measured) (95-100) % Emanuel Test A-a Gradient a/A Ratio Hemoglobin Carboxyhemoglobin (0.0-6.9) % THgb Methemoglobin (1.4-1.5) % Temperature C POC O2 Flow Rate % Sodium 132 L (135-145) mmol/L Potassium 6.0 H* (3.5-5.1) mmol/L Chloride 92 L (98-107) mmol/L Carbon Dioxide < 5 L* (22-30) mmol/L Anion Gap TNP BUN 51 H (7-17) mg/dL Creatinine 1.81 H (0.52-1.04) mg/dL Estimated GFR 28.3 ML/MIN Glucose 933 H* (74-106) mg/dL POC Glucometer (50 to 500) mg/dL Lactic Acid 5.2 H (0.4-2.0) Calcium 9.6 (8.4-10.2) mg/dL Magnesium 2.2 (1.6-2.3) mg/dL Total Bilirubin 1.10 (0.2-1.3) mg/dL AST 31 (14-36) U/L ALT 27 (0-35) U/L Alkaline Phosphatase 129 H (38-126) U/L Ammonia (9-30) umol/L Troponin I (0.000-0.033) ng/mL Serum Total Protein 7.1 (6.3-8.2) g/dL Albumin 4.4 (3.5-5.0) g/dL Urine Color (Yellow) Urine Appearance (Clear) Urine pH (4.6-8.0) Ur Specific [place] (1.005-1.030) Urine Protein (Negative) Urine Glucose (UA) (Negative) mg/dL Urine Ketones (Negative) Urine Blood (Negative) Urine Nitrite (Negative) Urine Bilirubin (Negative) Urine Urobilinogen (0.2) mg/dL Ur Leukocyte Esterase (Negative) U Hyaline Cast (Auto) (0-2) /LPF Urine Microscopic RBC (0-5) /HPF Urine Microscopic WBC (0-5) /HPF Ur Epithelial Cells (None Seen) /HPF Urine Bacteria (None Seen) /HPF Urine Culture Reflexed (NO) Monoscreen (NEGATIVE) Influenza Type A Ag (NEGATIVE) Influenza Type B Ag (NEGATIVE) RSV (PCR) (NEGATIVE) SARS-CoV-2 (PCR) (NEGATIVE) 04/28/24 04/28/24 04/28/24 Range/Units 16:40 16:40 18:00 WBC (3.98-10.04) x10^3/uL RBC (3.93-5.22) x10^6/uL Hgb (11.2-15.7) g/dL Hct (34.1-44.9) % MCV (79.4-94.8) fL MCH (25.6-32.2) pg MCHC (32.2-35.5) g/dL RDW (11.7-14.4) % Plt Count (182-369) x10^3/uL MPV (9.4-12.3) fL Gran % (34.0-71.1) % Immature Gran % (Auto) (0.001-0.429) % Nucleat RBC Rel Count (0.00-0.2) % Eos # (Auto) (0.04-0.36) x10^3/uL Immature Gran # (Auto) (0.001-0.031) x10^3u/L Absolute Lymphs (auto) (1.18-3.74) x10^3/uL Absolute Monos (auto) (0.24-0.86) x10^3/uL Absolute Nucleated RBC (0.00-0.012) x10^3u/L Lymphocytes % (19.3-51.7) % Monocytes % (4.7-12.5) % Eosinophils % (0.7-5.8) % Basophils % (0.1-1.2) % Absolute Granulocytes (1.56-6.13) x10^3/uL Basophils # (0.01-0.08) x10^3/uL Puncture Site pCO2 (35-45) mmHg pO2 (75-100) mmHg Base Excess (-2.0-2.0) O2 Saturation (94-100) g/dF ABG pH (7.35-7.45) ABG HCO3 (22-28) ABG O2 Sat (Measured) (95-100) % Emanuel Test A-a Gradient a/A Ratio Hemoglobin Carboxyhemoglobin (0.0-6.9) % THgb Methemoglobin (1.4-1.5) % Temperature C POC O2 Flow Rate % Sodium (135-145) mmol/L Potassium (3.5-5.1) mmol/L Chloride (98-107) mmol/L Carbon Dioxide (22-30) mmol/L Anion Gap BUN (7-17) mg/dL Creatinine (0.52-1.04) mg/dL Estimated GFR ML/MIN Glucose (74-106) mg/dL POC Glucometer (50 to 500) mg/dL Lactic Acid (0.4-2.0) Calcium (8.4-10.2) mg/dL Magnesium (1.6-2.3) mg/dL Total Bilirubin (0.2-1.3) mg/dL AST (14-36) U/L ALT (0-35) U/L Alkaline Phosphatase (38-126) U/L Ammonia (9-30) umol/L Troponin I (0.000-0.033) ng/mL Serum Total Protein (6.3-8.2) g/dL Albumin (3.5-5.0) g/dL Urine Color Yellow (Yellow) Urine Appearance Clear (Clear) Urine pH 5.0 (4.6-8.0) Ur Specific [place] 1.025 (1.005-1.030) Urine Protein Negative (Negative) Urine Glucose (UA) >=1000 A (Negative) mg/dL Urine Ketones 80 A (Negative) Urine Blood Negative (Negative) Urine Nitrite Negative (Negative) Urine Bilirubin Negative (Negative) Urine Urobilinogen 0.2 (0.2) mg/dL Ur Leukocyte Esterase Negative (Negative) U Hyaline Cast (Auto) NONE SEEN (0-2) /LPF Urine Microscopic RBC 0-2 (0-5) /HPF Urine Microscopic WBC 0-2 (0-5) /HPF Ur Epithelial Cells None Seen (None Seen) /HPF Urine Bacteria None Seen (None Seen) /HPF Urine Culture Reflexed YES (NO) Monoscreen NEGATIVE (NEGATIVE) Influenza Type A Ag NEGATIVE (NEGATIVE) Influenza Type B Ag NEGATIVE (NEGATIVE) RSV (PCR) NEGATIVE (NEGATIVE) SARS-CoV-2 (PCR) NEGATIVE (NEGATIVE) 04/28/24 04/28/24 04/28/24 Range/Units 18:20 18:30 18:44 WBC (3.98-10.04) x10^3/uL RBC (3.93-5.22) x10^6/uL Hgb (11.2-15.7) g/dL Hct (34.1-44.9) % MCV (79.4-94.8) fL MCH (25.6-32.2) pg MCHC (32.2-35.5) g/dL RDW (11.7-14.4) % Plt Count (182-369) x10^3/uL MPV (9.4-12.3) fL Gran % (34.0-71.1) % Immature Gran % (Auto) (0.001-0.429) % Nucleat RBC Rel Count (0.00-0.2) % Eos # (Auto) (0.04-0.36) x10^3/uL Immature Gran # (Auto) (0.001-0.031) x10^3u/L Absolute Lymphs (auto) (1.18-3.74) x10^3/uL Absolute Monos (auto) (0.24-0.86) x10^3/uL Absolute Nucleated RBC (0.00-0.012) x10^3u/L Lymphocytes % (19.3-51.7) % Monocytes % (4.7-12.5) % Eosinophils % (0.7-5.8) % Basophils % (0.1-1.2) % Absolute Granulocytes (1.56-6.13) x10^3/uL Basophils # (0.01-0.08) x10^3/uL Puncture Site pCO2 (35-45) mmHg pO2 (75-100) mmHg Base Excess (-2.0-2.0) O2 Saturation (94-100) g/dF ABG pH (7.35-7.45) ABG HCO3 (22-28) ABG O2 Sat (Measured) (95-100) % Emanuel Test A-a Gradient a/A Ratio Hemoglobin Carboxyhemoglobin (0.0-6.9) % THgb Methemoglobin (1.4-1.5) % Temperature C POC O2 Flow Rate % Sodium (135-145) mmol/L Potassium (3.5-5.1) mmol/L Chloride (98-107) mmol/L Carbon Dioxide (22-30) mmol/L Anion Gap BUN (7-17) mg/dL Creatinine (0.52-1.04) mg/dL Estimated GFR ML/MIN Glucose (74-106) mg/dL POC Glucometer (50 to 500) mg/dL Lactic Acid 5.0 H (0.4-2.0) Calcium (8.4-10.2) mg/dL Magnesium (1.6-2.3) mg/dL Total Bilirubin (0.2-1.3) mg/dL AST (14-36) U/L ALT (0-35) U/L Alkaline Phosphatase (38-126) U/L Ammonia < 9 L (9-30) umol/L Troponin I < 0.012 (0.000-0.033) ng/mL Serum Total Protein (6.3-8.2) g/dL Albumin (3.5-5.0) g/dL Urine Color (Yellow) Urine Appearance (Clear) Urine pH (4.6-8.0) Ur Specific [place] (1.005-1.030) Urine Protein (Negative) Urine Glucose (UA) (Negative) mg/dL Urine Ketones (Negative) Urine Blood (Negative) Urine Nitrite (Negative) Urine Bilirubin (Negative) Urine Urobilinogen (0.2) mg/dL Ur Leukocyte Esterase (Negative) U Hyaline Cast (Auto) (0-2) /LPF Urine Microscopic RBC (0-5) /HPF Urine Microscopic WBC (0-5) /HPF Ur Epithelial Cells (None Seen) /HPF Urine Bacteria (None Seen) /HPF Urine Culture Reflexed (NO) Monoscreen (NEGATIVE) Influenza Type A Ag (NEGATIVE) Influenza Type B Ag (NEGATIVE) RSV (PCR) (NEGATIVE) SARS-CoV-2 (PCR) (NEGATIVE) 04/28/24 04/28/24 04/28/24 Range/Units 19:21 20:05 21:30 WBC (3.98-10.04) x10^3/uL RBC (3.93-5.22) x10^6/uL Hgb (11.2-15.7) g/dL Hct (34.1-44.9) % MCV (79.4-94.8) fL MCH (25.6-32.2) pg MCHC (32.2-35.5) g/dL RDW (11.7-14.4) % Plt Count (182-369) x10^3/uL MPV (9.4-12.3) fL Gran % (34.0-71.1) % Immature Gran % (Auto) (0.001-0.429) % Nucleat RBC Rel Count (0.00-0.2) % Eos # (Auto) (0.04-0.36) x10^3/uL Immature Gran # (Auto) (0.001-0.031) x10^3u/L Absolute Lymphs (auto) (1.18-3.74) x10^3/uL Absolute Monos (auto) (0.24-0.86) x10^3/uL Absolute Nucleated RBC (0.00-0.012) x10^3u/L Lymphocytes % (19.3-51.7) % Monocytes % (4.7-12.5) % Eosinophils % (0.7-5.8) % Basophils % (0.1-1.2) % Absolute Granulocytes (1.56-6.13) x10^3/uL Basophils # (0.01-0.08) x10^3/uL Puncture Site RRA pCO2 24 L (35-45) mmHg pO2 107 H (75-100) mmHg Base Excess -19.2 L (-2.0-2.0) O2 Saturation 96.6 (94-100) g/dF ABG pH 7.14 L* (7.35-7.45) ABG HCO3 8.2 L* (22-28) ABG O2 Sat (Measured) 98.7 (95-100) % Emanuel Test yes A-a Gradient 13 a/A Ratio 0.89 Hemoglobin 12.6 Carboxyhemoglobin 1.1 (0.0-6.9) % THgb Methemoglobin 1.0 L (1.4-1.5) % Temperature 37.0 C POC O2 Flow Rate 21 % Sodium (135-145) mmol/L Potassium 4.4 (3.5-5.1) mmol/L Chloride (98-107) mmol/L Carbon Dioxide (22-30) mmol/L Anion Gap BUN (7-17) mg/dL Creatinine (0.52-1.04) mg/dL Estimated GFR ML/MIN Glucose 758 H* (74-106) mg/dL POC Glucometer (50 to 500) mg/dL Lactic Acid 4.0 H (0.4-2.0) Calcium (8.4-10.2) mg/dL Magnesium (1.6-2.3) mg/dL Total Bilirubin (0.2-1.3) mg/dL AST (14-36) U/L ALT (0-35) U/L Alkaline Phosphatase (38-126) U/L Ammonia (9-30) umol/L Troponin I (0.000-0.033) ng/mL Serum Total Protein (6.3-8.2) g/dL Albumin (3.5-5.0) g/dL Urine Color (Yellow) Urine Appearance (Clear) Urine pH (4.6-8.0) Ur Specific [place] (1.005-1.030) Urine Protein (Negative) Urine Glucose (UA) (Negative) mg/dL Urine Ketones (Negative) Urine Blood (Negative) Urine Nitrite (Negative) Urine Bilirubin (Negative) Urine Urobilinogen (0.2) mg/dL Ur Leukocyte Esterase (Negative) U Hyaline Cast (Auto) (0-2) /LPF Urine Microscopic RBC (0-5) /HPF Urine Microscopic WBC (0-5) /HPF Ur Epithelial Cells (None Seen) /HPF Urine Bacteria (None Seen) /HPF Urine Culture Reflexed (NO) Monoscreen (NEGATIVE) Influenza Type A Ag (NEGATIVE) Influenza Type B Ag (NEGATIVE) RSV (PCR) (NEGATIVE) SARS-CoV-2 (PCR) (NEGATIVE) 04/28/24 04/28/24 04/28/24 Range/Units 21:40 21:40 22:11 WBC (3.98-10.04) x10^3/uL RBC (3.93-5.22) x10^6/uL Hgb (11.2-15.7) g/dL Hct (34.1-44.9) % MCV (79.4-94.8) fL MCH (25.6-32.2) pg MCHC (32.2-35.5) g/dL RDW (11.7-14.4) % Plt Count (182-369) x10^3/uL MPV (9.4-12.3) fL Gran % (34.0-71.1) % Immature Gran % (Auto) (0.001-0.429) % Nucleat RBC Rel Count (0.00-0.2) % Eos # (Auto) (0.04-0.36) x10^3/uL Immature Gran # (Auto) (0.001-0.031) x10^3u/L Absolute Lymphs (auto) (1.18-3.74) x10^3/uL Absolute Monos (auto) (0.24-0.86) x10^3/uL Absolute Nucleated RBC (0.00-0.012) x10^3u/L Lymphocytes % (19.3-51.7) % Monocytes % (4.7-12.5) % Eosinophils % (0.7-5.8) % Basophils % (0.1-1.2) % Absolute Granulocytes (1.56-6.13) x10^3/uL Basophils # (0.01-0.08) x10^3/uL Puncture Site pCO2 (35-45) mmHg pO2 (75-100) mmHg Base Excess (-2.0-2.0) O2 Saturation (94-100) g/dF ABG pH (7.35-7.45) ABG HCO3 (22-28) ABG O2 Sat (Measured) (95-100) % Emanuel Test A-a Gradient a/A Ratio Hemoglobin Carboxyhemoglobin (0.0-6.9) % THgb Methemoglobin (1.4-1.5) % Temperature C POC O2 Flow Rate % Sodium 138 (135-145) mmol/L Potassium 4.3 D (3.5-5.1) mmol/L Chloride 102 (98-107) mmol/L Carbon Dioxide 7 L* (22-30) mmol/L Anion Gap 33.4 H BUN 55 H (7-17) mg/dL Creatinine 1.76 H (0.52-1.04) mg/dL Estimated GFR 29.3 ML/MIN Glucose 626 H* (74-106) mg/dL POC Glucometer 533 H* (50 to 500) mg/dL Lactic Acid (0.4-2.0) Calcium 9.1 (8.4-10.2) mg/dL Magnesium (1.6-2.3) mg/dL Total Bilirubin (0.2-1.3) mg/dL AST (14-36) U/L ALT (0-35) U/L Alkaline Phosphatase (38-126) U/L Ammonia (9-30) umol/L Troponin I 0.050 H* (0.000-0.033) ng/mL Serum Total Protein (6.3-8.2) g/dL Albumin (3.5-5.0) g/dL Urine Color (Yellow) Urine Appearance (Clear) Urine pH (4.6-8.0) Ur Specific [place] (1.005-1.030) Urine Protein (Negative) Urine Glucose (UA) (Negative) mg/dL Urine Ketones (Negative) Urine Blood (Negative) Urine Nitrite (Negative) Urine Bilirubin (Negative) Urine Urobilinogen (0.2) mg/dL Ur Leukocyte Esterase (Negative) U Hyaline Cast (Auto) (0-2) /LPF Urine Microscopic RBC (0-5) /HPF Urine Microscopic WBC (0-5) /HPF Ur Epithelial Cells (None Seen) /HPF Urine Bacteria (None Seen) /HPF Urine Culture Reflexed (NO) Monoscreen (NEGATIVE) Influenza Type A Ag (NEGATIVE) Influenza Type B Ag (NEGATIVE) RSV (PCR) (NEGATIVE) SARS-CoV-2 (PCR) (NEGATIVE) 04/28/24 04/28/24 04/29/24 Range/Units 23:00 23:10 00:05 WBC (3.98-10.04) x10^3/uL RBC (3.93-5.22) x10^6/uL Hgb (11.2-15.7) g/dL Hct (34.1-44.9) % MCV (79.4-94.8) fL MCH (25.6-32.2) pg MCHC (32.2-35.5) g/dL RDW (11.7-14.4) % Plt Count (182-369) x10^3/uL MPV (9.4-12.3) fL Gran % (34.0-71.1) % Immature Gran % (Auto) (0.001-0.429) % Nucleat RBC Rel Count (0.00-0.2) % Eos # (Auto) (0.04-0.36) x10^3/uL Immature Gran # (Auto) (0.001-0.031) x10^3u/L Absolute Lymphs (auto) (1.18-3.74) x10^3/uL Absolute Monos (auto) (0.24-0.86) x10^3/uL Absolute Nucleated RBC (0.00-0.012) x10^3u/L Lymphocytes % (19.3-51.7) % Monocytes % (4.7-12.5) % Eosinophils % (0.7-5.8) % Basophils % (0.1-1.2) % Absolute Granulocytes (1.56-6.13) x10^3/uL Basophils # (0.01-0.08) x10^3/uL Puncture Site pCO2 (35-45) mmHg pO2 (75-100) mmHg Base Excess (-2.0-2.0) O2 Saturation (94-100) g/dF ABG pH (7.35-7.45) ABG HCO3 (22-28) ABG O2 Sat (Measured) (95-100) % Emanuel Test A-a Gradient a/A Ratio Hemoglobin Carboxyhemoglobin (0.0-6.9) % THgb Methemoglobin (1.4-1.5) % Temperature C POC O2 Flow Rate % Sodium (135-145) mmol/L Potassium (3.5-5.1) mmol/L Chloride (98-107) mmol/L Carbon Dioxide (22-30) mmol/L Anion Gap BUN (7-17) mg/dL Creatinine (0.52-1.04) mg/dL Estimated GFR ML/MIN Glucose (74-106) mg/dL POC Glucometer 464 H 425 H (50 to 500) mg/dL Lactic Acid (0.4-2.0) Calcium (8.4-10.2) mg/dL Magnesium (1.6-2.3) mg/dL Total Bilirubin (0.2-1.3) mg/dL AST (14-36) U/L ALT (0-35) U/L Alkaline Phosphatase (38-126) U/L Ammonia (9-30) umol/L Troponin I (0.000-0.033) ng/mL Serum Total Protein (6.3-8.2) g/dL Albumin (3.5-5.0) g/dL Urine Color Yellow (Yellow) Urine Appearance Clear (Clear) Urine pH 5.0 (4.6-8.0) Ur Specific [place] 1.020 (1.005-1.030) Urine Protein Negative (Negative) Urine Glucose (UA) >=1000 A (Negative) mg/dL Urine Ketones 40 A (Negative) Urine Blood Moderate A (Negative) Urine Nitrite Negative (Negative) Urine Bilirubin Negative (Negative) Urine Urobilinogen 0.2 (0.2) mg/dL Ur Leukocyte Esterase Negative (Negative) U Hyaline Cast (Auto) 3-5 A (0-2) /LPF Urine Microscopic RBC 11-20 A (0-5) /HPF Urine Microscopic WBC 0-2 (0-5) /HPF Ur Epithelial Cells None Seen (None Seen) /HPF Urine Bacteria None Seen (None Seen) /HPF Urine Culture Reflexed NO (NO) Monoscreen (NEGATIVE) Influenza Type A Ag (NEGATIVE) Influenza Type B Ag (NEGATIVE) RSV (PCR) (NEGATIVE) SARS-CoV-2 (PCR) (NEGATIVE) Accuchecks Date 04/28/24 Time 16:33 - Radiology Impressions Radiology Exams & Impressions: Radiology Procedures Category Date Time Status CHEST 1 VIEW (PORTABLE) Stat Exams 04/28/24 18:29 Taken HEAD WITHOUT CONTRAST [CT] Stat Exams 04/28/24 18:27 Taken Chest x-ray no infiltrate, effusion, or edema. (Images personally reviewed) Assessment/Plan (1) DKA (diabetic ketoacidosis) Current Visit: Yes Status: Acute Assessment & Plan: 79-year-old woman with a history of type 2 diabetes, GERD, hypertension, here with DKA. ## DKA with high anion gap metabolic acidosis and accompanying hyperglycemia, consistent with DKA. Initial serum bicarb was undetectable, although on ABG, pH, while showing metabolic acidosis, was only down to 7.14. Patient had some accompanying respiratory compensation. Cause for episode of DKA is unclear, although can surmise some change in patient's diet and medication compliance after her recent C-spine fracture. Admit to ICU Placed on insulin drip Bolus another 1 L normal saline, then start half NS at 250 mL/h Check BMP, venous pH, urine ketones every 4 hours (serum ketones are a send out lab.) Monitor glucose q.1 hour ## Hyperkalemia in the setting of DKA and effective hyperinsulinemia, did not need to be treated. Unfortunately, patient received a dose of Lasix despite being clinically hypovolemic. Repeat potassium level 4.3, but expect it will keep falling on the insulin drip. Monitor potassium levels q.4 hours as above Add potassium back to IV fluids once below 4 ## Acute kidney injury 2 months ago, patient's baseline creatinine was 1.2, up to 1.8 on arrival. Secondary to hypovolemia from DKA. Unfortunately, patient also received Lasix in the ED. Now status post 2 L bolus normal saline. Continuous fluids at 250 mL/h Following electrolytes q.4 hours as above ## Leukocytosis likely reactive in the setting of DKA. No evidence of infection at this time. Repeat CBC in the morning ## Elevated troponin in the setting of acute kidney injury and hypovolemia, unlikely to reflect true ACS. Trend troponin ## Hypertension per history, although currently blood pressure is low normal secondary to hypovolemia. Unable to verify patient's home medications at this current time. Follow BP Once able to confirm home medications, can resume any home antihypertensives CODE STATUS: Full code Prophylaxis: Heparin Diet: N.p.o. Dispo: Place in ICU Entirety of encounter took place via live audio/video telemedicine device. Patient unable to consent due to mental status. Physician was out of state and patient was in the hospital. Code(s): E11.10 - TYPE 2 DIABETES MELLITUS WITH KETOACIDOSIS WITHOUT COMA Telemedicine Encounter - Telemedicine Encounter Telemedicine Encounter: "The entirety of this encounter was performed via Telemedicine" This visit was performed using real-time audio and video connection between my location and thepatients locationwith the assistance of a surrogateat the patients location. Written or verbal consent was obtained from the patient/guardian to perform this [facility]. Any patient questions regarding the telemedicine interaction were answered.
[2024-04-29 02:29] LABS: VBG BASE EXCESS 0.5 (-2.0-2.0); VBG CARBOXYHEMOGLOBIN 3.7 % T HGB (0.0-6.9); VBG HCO3- 25.4 meq/L (22-28); VBG HEMOGLOBIN 11.4; VBG O2 SATURATION 90.4 (95-100); VBG POTASSIUM 4.1 (3.5-5.1); VBG pH 7.4 (7.32-7.42)
[2024-04-29 02:37] LABS: ANION GAP 15.4 MEQ/L (5-15); Calcium 8.9 mg/dL (8.4-10.2); Creatinine 1 1.74 mg/dL (0.52-1.04); EST GLOMERULAR FILTRATION RATE 29.7 ML/MIN
[2024-04-29] MEDS: Sodium Chloride 0.9% 1000 ML 1,000 ML IV SCH (02:53)
[2024-04-29 03:26] LABS: Appearance Clear (Clear); Bacteria None Seen /HPF (None Seen); Bilirubin Negative (Negative); Blood Large (Negative); Epithelial Cells None Seen /HPF (None Seen); Glucose, Urine >=1000 mg/dL (Negative); Ketones 15 (Negative); Leukocyte Esterase Negative (Negative); Nitrite Negative (Negative); Protein,Urine Dip Negative (Negative); RBC 21-50 /HPF (0-5); WBC 0-2 /HPF (0-5)
[2024-04-29 03:35] LABS: Hyaline Casts 20-50 /LPF (0-2)
[2024-04-29] MEDS: SODIUM CHLORIDE 0.45% W/ 20 mEq KCL 1,000 ML IV SCH (03:53)
[2024-04-29] MEDS: D5W/0.45NS W/ 20mEq KCl 1000 ML 1,000 ML IV SCH (04:10)
[2024-04-29] MEDS: HEPARIN 5000 UNITS/0.5 ML (HIGH RISK MED) SQ SCH (05:20)
--- NOTE | 2024-04-29 05:32 | PCM.NOTE ---
Date and Time: 04/29/24 0522 Subjective Assessment: HPI: is a 79 year old female with history of type 2 diabetes, hypertension, GERD, and recent C-spine fracture, admitted 04/28/24 with DKA and pneumonia.Note, history is obtained from chart, as patient is severely lethargic and unable to answer questions. Per ED physician, patient presented with a few days of progressive vomiting, and lethargy. She had a C-spine fracture a few weeks ago, and remains in a c-collar. On arrival, she was found to be in DKA. In the ED, she was initially given 1 L normal saline, but also given Lasix and calcium for hyperkalemia. Upon discussion with oncoming evening ED provider, patient was asked to be given another liter of fluid and started on insulin drip per DKA protocol. Unable to obtain any further history from patient secondary to mental status. CXR showing new right suprahilar infiltrate versus atelectasis. CT head with no acute findings. 04/29/24: Met with patient and brother at bedside. Patient still with confusion. Patient A&O to self/place. Patient/family unable to provide history or home medication information. Patient did state that her CGM was not functioning properly at home. WBC worse today at 18. CXR showing right suprahilar infiltrate. Will start aztreonam and azithromycin due to allergy profile. Blood and sputum cultures pending. Denies fever,cough, cp, abdominal pain, SMITH, dizziness, N/V/D. 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, normal mood/affect, disoriented, confusion Skin Exam: normal color Eye Exam: PERRL Ears, Nose, Throat Exam: dry mucous membranes Neck Exam: other (neck/back brace intact) Respiratory Exam: crackles/rales Cardiovascular Exam: regular rate/rhythm, normal heart sounds Gastrointestinal/Abdomen Exam: soft, normal bowel sounds Extremity Exam: normal inspection Back Exam: normal inspection Pelvic Exam: deferred Rectal Exam: deferred Objective Data Vital Signs: Vital Signs - 24 hr Temp Pulse Resp BP BP Pulse Ox 04/29/24 05:00 75 18 111/41 04/29/24 04:15 77 04/29/24 04:00 98.7 F 76 18 93/40 96 04/29/24 03:00 77 15 113/40 04/29/24 02:02 77 19 97/41 04/29/24 02:00 77 22 92/31 97 04/29/24 01:00 75 17 102/48 94 L 04/29/24 00:01 74 04/29/24 00:00 98.6 F 72 20 116/42 98 04/28/24 23:30 75 20 105/45 96 04/28/24 23:24 97.7 F 74 18 116/46 100 04/28/24 23:00 74 22 95/42 100 04/28/24 22:00 71 18 92/54 100 04/28/24 21:45 71 23 99/53 95 04/28/24 21:30 78 20 100/79 94 L 04/28/24 21:15 79 21 109/54 04/28/24 21:00 80 19 107/52 100 04/28/24 20:45 81 17 95/49 68 L 04/28/24 20:30 82 21 89/59 93 L 04/28/24 20:15 83 18 93/52 04/28/24 20:00 84 20 73/38 04/28/24 19:45 90 15 76/41 04/28/24 19:30 85 22 84/50 04/28/24 19:15 92 H 21 80/45 90 L 04/28/24 19:07 91 H 24 93/55 69 L 04/28/24 18:45 94 H 22 79/45 88 L 04/28/24 18:38 92 H 29 H 91/56 88 L 04/28/24 18:30 94 H 24 70/52 04/28/24 18:15 94 H 17 85/53 04/28/24 18:00 97 H 22 83/51 04/28/24 17:58 99 H 23 95/53 88 L 04/28/24 17:45 99 H 19 66/48 04/28/24 17:30 91 H 21 97/64 100 04/28/24 17:27 91 H 18 92/60 100 04/28/24 17:26 89 22 99 04/28/24 17:20 90 25 H 04/28/24 17:10 88 13 04/28/24 17:00 88 23 96 04/28/24 16:50 89 22 97 04/28/24 16:43 87 23 04/28/24 16:34 97 04/28/24 16:21 97.4 F 90 20 120/64 Pain Assessment - Last Documented Pain Intensity 0 Intake and Output: Intake & Output 04/26/24 04/27/24 04/28/24 04/29/24 11:59 11:59 11:59 11:59 Intake Total 2327 Output Total 2100 Balance 227 Weight 83.4 kg Lab Results: Lab Results-Last 24 Hours 04/28/24 04/28/24 04/28/24 Range/Units 16:38 16:40 16:40 WBC 15.1 H (3.98-10.04) x10^3/uL RBC 4.35 (3.93-5.22) x10^6/uL Hgb 12.8 (11.2-15.7) g/dL Hct 41.9 (34.1-44.9) % MCV 96.3 H (79.4-94.8) fL MCH 29.4 (25.6-32.2) pg MCHC 30.5 L (32.2-35.5) g/dL RDW 12.3 (11.7-14.4) % Plt Count 334 (182-369) x10^3/uL MPV 10.9 (9.4-12.3) fL Gran % 85.4 H (34.0-71.1) % Immature Gran % (Auto) 1.4 H (0.001-0.429) % Nucleat RBC Rel Count 0.0 (0.00-0.2) % Eos # (Auto) 0 L (0.04-0.36) x10^3/uL Immature Gran # (Auto) 0.21 H (0.001-0.031) x10^3u/L Absolute Lymphs (auto) 1.23 (1.18-3.74) x10^3/uL Absolute Monos (auto) 0.67 (0.24-0.86) x10^3/uL Absolute Nucleated RBC 0.00 (0.00-0.012) x10^3u/L Lymphocytes % 8.2 L (19.3-51.7) % Monocytes % 4.4 L (4.7-12.5) % Eosinophils % 0.0 L (0.7-5.8) % Basophils % 0.6 (0.1-1.2) % Absolute Granulocytes 12.89 H (1.56-6.13) x10^3/uL Basophils # 0.09 H (0.01-0.08) x10^3/uL Puncture Site pCO2 (35-45) mmHg pO2 (75-100) mmHg pO2/FiO2 Ratio % Base Excess (-2.0-2.0) O2 Saturation (94-100) g/dF ABG pH (7.35-7.45) ABG HCO3 (22-28) ABG O2 Sat (Measured) (95-100) % Emanuel Test VBG pH (7.32-7.42) VBG pCO2 at Pat Temp (42-55) mm/Hg VBG pO2 at Pat Temp (25-40) mm/Hg VBG HCO3 (22-28) meq/L VBG O2 Sat (Real) (95-100) VBG Base Excess (-2.0-2.0) VBG Hemoglobin VBG Carboxyhemoglobin (0.0-6.9) % T HGB A-a Gradient a/A Ratio Hemoglobin Carboxyhemoglobin (0.0-6.9) % THgb Methemoglobin (1.4-1.5) % POC Potassium (3.5-5.1) Temperature C POC O2 Flow Rate % Sodium 132 L (135-145) mmol/L Potassium 6.0 H* (3.5-5.1) mmol/L Chloride 92 L (98-107) mmol/L Carbon Dioxide < 5 L* (22-30) mmol/L Anion Gap TNP BUN 51 H (7-17) mg/dL Creatinine 1.81 H (0.52-1.04) mg/dL Estimated GFR 28.3 ML/MIN Glucose 933 H* (74-106) mg/dL POC Glucometer (50 to 500) mg/dL Lactic Acid 5.2 H (0.4-2.0) Calcium 9.6 (8.4-10.2) mg/dL Magnesium 2.2 (1.6-2.3) mg/dL Total Bilirubin 1.10 (0.2-1.3) mg/dL AST 31 (14-36) U/L ALT 27 (0-35) U/L Alkaline Phosphatase 129 H (38-126) U/L Ammonia (9-30) umol/L Troponin I (0.000-0.033) ng/mL Serum Total Protein 7.1 (6.3-8.2) g/dL Albumin 4.4 (3.5-5.0) g/dL Urine Color (Yellow) Urine Appearance (Clear) Urine pH (4.6-8.0) Ur Specific [place] (1.005-1.030) Urine Protein (Negative) Urine Glucose (UA) (Negative) mg/dL Urine Ketones (Negative) Urine Blood (Negative) Urine Nitrite (Negative) Urine Bilirubin (Negative) Urine Urobilinogen (0.2) mg/dL Ur Leukocyte Esterase (Negative) U Hyaline Cast (Auto) (0-2) /LPF Urine Microscopic RBC (0-5) /HPF Urine Microscopic WBC (0-5) /HPF Ur Epithelial Cells (None Seen) /HPF Urine Bacteria (None Seen) /HPF Urine Culture Reflexed (NO) Monoscreen (NEGATIVE) Influenza Type A Ag (NEGATIVE) Influenza Type B Ag (NEGATIVE) RSV (PCR) (NEGATIVE) SARS-CoV-2 (PCR) (NEGATIVE) 04/28/24 04/28/24 04/28/24 Range/Units 16:40 16:40 18:00 WBC (3.98-10.04) x10^3/uL RBC (3.93-5.22) x10^6/uL Hgb (11.2-15.7) g/dL Hct (34.1-44.9) % MCV (79.4-94.8) fL MCH (25.6-32.2) pg MCHC (32.2-35.5) g/dL RDW (11.7-14.4) % Plt Count (182-369) x10^3/uL MPV (9.4-12.3) fL Gran % (34.0-71.1) % Immature Gran % (Auto) (0.001-0.429) % Nucleat RBC Rel Count (0.00-0.2) % Eos # (Auto) (0.04-0.36) x10^3/uL Immature Gran # (Auto) (0.001-0.031) x10^3u/L Absolute Lymphs (auto) (1.18-3.74) x10^3/uL Absolute Monos (auto) (0.24-0.86) x10^3/uL Absolute Nucleated RBC (0.00-0.012) x10^3u/L Lymphocytes % (19.3-51.7) % Monocytes % (4.7-12.5) % Eosinophils % (0.7-5.8) % Basophils % (0.1-1.2) % Absolute Granulocytes (1.56-6.13) x10^3/uL Basophils # (0.01-0.08) x10^3/uL Puncture Site pCO2 (35-45) mmHg pO2 (75-100) mmHg pO2/FiO2 Ratio % Base Excess (-2.0-2.0) O2 Saturation (94-100) g/dF ABG pH (7.35-7.45) ABG HCO3 (22-28) ABG O2 Sat (Measured) (95-100) % Emanuel Test VBG pH (7.32-7.42) VBG pCO2 at Pat Temp (42-55) mm/Hg VBG pO2 at Pat Temp (25-40) mm/Hg VBG HCO3 (22-28) meq/L VBG O2 Sat (Real) (95-100) VBG Base Excess (-2.0-2.0) VBG Hemoglobin VBG Carboxyhemoglobin (0.0-6.9) % T HGB A-a Gradient a/A Ratio Hemoglobin Carboxyhemoglobin (0.0-6.9) % THgb Methemoglobin (1.4-1.5) % POC Potassium (3.5-5.1) Temperature C POC O2 Flow Rate % Sodium (135-145) mmol/L Potassium (3.5-5.1) mmol/L Chloride (98-107) mmol/L Carbon Dioxide (22-30) mmol/L Anion Gap BUN (7-17) mg/dL Creatinine (0.52-1.04) mg/dL Estimated GFR ML/MIN Glucose (74-106) mg/dL POC Glucometer (50 to 500) mg/dL Lactic Acid (0.4-2.0) Calcium (8.4-10.2) mg/dL Magnesium (1.6-2.3) mg/dL Total Bilirubin (0.2-1.3) mg/dL AST (14-36) U/L ALT (0-35) U/L Alkaline Phosphatase (38-126) U/L Ammonia (9-30) umol/L Troponin I (0.000-0.033) ng/mL Serum Total Protein (6.3-8.2) g/dL Albumin (3.5-5.0) g/dL Urine Color Yellow (Yellow) Urine Appearance Clear (Clear) Urine pH 5.0 (4.6-8.0) Ur Specific [place] 1.025 (1.005-1.030) Urine Protein Negative (Negative) Urine Glucose (UA) >=1000 A (Negative) mg/dL Urine Ketones 80 A (Negative) Urine Blood Negative (Negative) Urine Nitrite Negative (Negative) Urine Bilirubin Negative (Negative) Urine Urobilinogen 0.2 (0.2) mg/dL Ur Leukocyte Esterase Negative (Negative) U Hyaline Cast (Auto) NONE SEEN (0-2) /LPF Urine Microscopic RBC 0-2 (0-5) /HPF Urine Microscopic WBC 0-2 (0-5) /HPF Ur Epithelial Cells None Seen (None Seen) /HPF Urine Bacteria None Seen (None Seen) /HPF Urine Culture Reflexed YES (NO) Monoscreen NEGATIVE (NEGATIVE) Influenza Type A Ag NEGATIVE (NEGATIVE) Influenza Type B Ag NEGATIVE (NEGATIVE) RSV (PCR) NEGATIVE (NEGATIVE) SARS-CoV-2 (PCR) NEGATIVE (NEGATIVE) 04/28/24 04/28/24 04/28/24 Range/Units 18:20 18:30 18:44 WBC (3.98-10.04) x10^3/uL RBC (3.93-5.22) x10^6/uL Hgb (11.2-15.7) g/dL Hct (34.1-44.9) % MCV (79.4-94.8) fL MCH (25.6-32.2) pg MCHC (32.2-35.5) g/dL RDW (11.7-14.4) % Plt Count (182-369) x10^3/uL MPV (9.4-12.3) fL Gran % (34.0-71.1) % Immature Gran % (Auto) (0.001-0.429) % Nucleat RBC Rel Count (0.00-0.2) % Eos # (Auto) (0.04-0.36) x10^3/uL Immature Gran # (Auto) (0.001-0.031) x10^3u/L Absolute Lymphs (auto) (1.18-3.74) x10^3/uL Absolute Monos (auto) (0.24-0.86) x10^3/uL Absolute Nucleated RBC (0.00-0.012) x10^3u/L Lymphocytes % (19.3-51.7) % Monocytes % (4.7-12.5) % Eosinophils % (0.7-5.8) % Basophils % (0.1-1.2) % Absolute Granulocytes (1.56-6.13) x10^3/uL Basophils # (0.01-0.08) x10^3/uL Puncture Site pCO2 (35-45) mmHg pO2 (75-100) mmHg pO2/FiO2 Ratio % Base Excess (-2.0-2.0) O2 Saturation (94-100) g/dF ABG pH (7.35-7.45) ABG HCO3 (22-28) ABG O2 Sat (Measured) (95-100) % Emanuel Test VBG pH (7.32-7.42) VBG pCO2 at Pat Temp (42-55) mm/Hg VBG pO2 at Pat Temp (25-40) mm/Hg VBG HCO3 (22-28) meq/L VBG O2 Sat (Real) (95-100) VBG Base Excess (-2.0-2.0) VBG Hemoglobin VBG Carboxyhemoglobin (0.0-6.9) % T HGB A-a Gradient a/A Ratio Hemoglobin Carboxyhemoglobin (0.0-6.9) % THgb Methemoglobin (1.4-1.5) % POC Potassium (3.5-5.1) Temperature C POC O2 Flow Rate % Sodium (135-145) mmol/L Potassium (3.5-5.1) mmol/L Chloride (98-107) mmol/L Carbon Dioxide (22-30) mmol/L Anion Gap BUN (7-17) mg/dL Creatinine (0.52-1.04) mg/dL Estimated GFR ML/MIN Glucose (74-106) mg/dL POC Glucometer (50 to 500) mg/dL Lactic Acid 5.0 H (0.4-2.0) Calcium (8.4-10.2) mg/dL Magnesium (1.6-2.3) mg/dL Total Bilirubin (0.2-1.3) mg/dL AST (14-36) U/L ALT (0-35) U/L Alkaline Phosphatase (38-126) U/L Ammonia < 9 L (9-30) umol/L Troponin I < 0.012 (0.000-0.033) ng/mL Serum Total Protein (6.3-8.2) g/dL Albumin (3.5-5.0) g/dL Urine Color (Yellow) Urine Appearance (Clear) Urine pH (4.6-8.0) Ur Specific [place] (1.005-1.030) Urine Protein (Negative) Urine Glucose (UA) (Negative) mg/dL Urine Ketones (Negative) Urine Blood (Negative) Urine Nitrite (Negative) Urine Bilirubin (Negative) Urine Urobilinogen (0.2) mg/dL Ur Leukocyte Esterase (Negative) U Hyaline Cast (Auto) (0-2) /LPF Urine Microscopic RBC (0-5) /HPF Urine Microscopic WBC (0-5) /HPF Ur Epithelial Cells (None Seen) /HPF Urine Bacteria (None Seen) /HPF Urine Culture Reflexed (NO) Monoscreen (NEGATIVE) Influenza Type A Ag (NEGATIVE) Influenza Type B Ag (NEGATIVE) RSV (PCR) (NEGATIVE) SARS-CoV-2 (PCR) (NEGATIVE) 04/28/24 04/28/24 04/28/24 Range/Units 19:21 20:05 21:30 WBC (3.98-10.04) x10^3/uL RBC (3.93-5.22) x10^6/uL Hgb (11.2-15.7) g/dL Hct (34.1-44.9) % MCV (79.4-94.8) fL MCH (25.6-32.2) pg MCHC (32.2-35.5) g/dL RDW (11.7-14.4) % Plt Count (182-369) x10^3/uL MPV (9.4-12.3) fL Gran % (34.0-71.1) % Immature Gran % (Auto) (0.001-0.429) % Nucleat RBC Rel Count (0.00-0.2) % Eos # (Auto) (0.04-0.36) x10^3/uL Immature Gran # (Auto) (0.001-0.031) x10^3u/L Absolute Lymphs (auto) (1.18-3.74) x10^3/uL Absolute Monos (auto) (0.24-0.86) x10^3/uL Absolute Nucleated RBC (0.00-0.012) x10^3u/L Lymphocytes % (19.3-51.7) % Monocytes % (4.7-12.5) % Eosinophils % (0.7-5.8) % Basophils % (0.1-1.2) % Absolute Granulocytes (1.56-6.13) x10^3/uL Basophils # (0.01-0.08) x10^3/uL Puncture Site RRA pCO2 24 L (35-45) mmHg pO2 107 H (75-100) mmHg pO2/FiO2 Ratio % Base Excess -19.2 L (-2.0-2.0) O2 Saturation 96.6 (94-100) g/dF ABG pH 7.14 L* (7.35-7.45) ABG HCO3 8.2 L* (22-28) ABG O2 Sat (Measured) 98.7 (95-100) % Emanuel Test yes VBG pH (7.32-7.42) VBG pCO2 at Pat Temp (42-55) mm/Hg VBG pO2 at Pat Temp (25-40) mm/Hg VBG HCO3 (22-28) meq/L VBG O2 Sat (Real) (95-100) VBG Base Excess (-2.0-2.0) VBG Hemoglobin VBG Carboxyhemoglobin (0.0-6.9) % T HGB A-a Gradient 13 a/A Ratio 0.89 Hemoglobin 12.6 Carboxyhemoglobin 1.1 (0.0-6.9) % THgb Methemoglobin 1.0 L (1.4-1.5) % POC Potassium (3.5-5.1) Temperature 37.0 C POC O2 Flow Rate 21 % Sodium (135-145) mmol/L Potassium 4.4 (3.5-5.1) mmol/L Chloride (98-107) mmol/L Carbon Dioxide (22-30) mmol/L Anion Gap BUN (7-17) mg/dL Creatinine (0.52-1.04) mg/dL Estimated GFR ML/MIN Glucose 758 H* (74-106) mg/dL POC Glucometer (50 to 500) mg/dL Lactic Acid 4.0 H (0.4-2.0) Calcium (8.4-10.2) mg/dL Magnesium (1.6-2.3) mg/dL Total Bilirubin (0.2-1.3) mg/dL AST (14-36) U/L ALT (0-35) U/L Alkaline Phosphatase (38-126) U/L Ammonia (9-30) umol/L Troponin I (0.000-0.033) ng/mL Serum Total Protein (6.3-8.2) g/dL Albumin (3.5-5.0) g/dL Urine Color (Yellow) Urine Appearance (Clear) Urine pH (4.6-8.0) Ur Specific [place] (1.005-1.030) Urine Protein (Negative) Urine Glucose (UA) (Negative) mg/dL Urine Ketones (Negative) Urine Blood (Negative) Urine Nitrite (Negative) Urine Bilirubin (Negative) Urine Urobilinogen (0.2) mg/dL Ur Leukocyte Esterase (Negative) U Hyaline Cast (Auto) (0-2) /LPF Urine Microscopic RBC (0-5) /HPF Urine Microscopic WBC (0-5) /HPF Ur Epithelial Cells (None Seen) /HPF Urine Bacteria (None Seen) /HPF Urine Culture Reflexed (NO) Monoscreen (NEGATIVE) Influenza Type A Ag (NEGATIVE) Influenza Type B Ag (NEGATIVE) RSV (PCR) (NEGATIVE) SARS-CoV-2 (PCR) (NEGATIVE) 04/28/24 04/28/24 04/28/24 Range/Units 21:40 21:40 22:11 WBC (3.98-10.04) x10^3/uL RBC (3.93-5.22) x10^6/uL Hgb (11.2-15.7) g/dL Hct (34.1-44.9) % MCV (79.4-94.8) fL MCH (25.6-32.2) pg MCHC (32.2-35.5) g/dL RDW (11.7-14.4) % Plt Count (182-369) x10^3/uL MPV (9.4-12.3) fL Gran % (34.0-71.1) % Immature Gran % (Auto) (0.001-0.429) % Nucleat RBC Rel Count (0.00-0.2) % Eos # (Auto) (0.04-0.36) x10^3/uL Immature Gran # (Auto) (0.001-0.031) x10^3u/L Absolute Lymphs (auto) (1.18-3.74) x10^3/uL Absolute Monos (auto) (0.24-0.86) x10^3/uL Absolute Nucleated RBC (0.00-0.012) x10^3u/L Lymphocytes % (19.3-51.7) % Monocytes % (4.7-12.5) % Eosinophils % (0.7-5.8) % Basophils % (0.1-1.2) % Absolute Granulocytes (1.56-6.13) x10^3/uL Basophils # (0.01-0.08) x10^3/uL Puncture Site pCO2 (35-45) mmHg pO2 (75-100) mmHg pO2/FiO2 Ratio % Base Excess (-2.0-2.0) O2 Saturation (94-100) g/dF ABG pH (7.35-7.45) ABG HCO3 (22-28) ABG O2 Sat (Measured) (95-100) % Emanuel Test VBG pH (7.32-7.42) VBG pCO2 at Pat Temp (42-55) mm/Hg VBG pO2 at Pat Temp (25-40) mm/Hg VBG HCO3 (22-28) meq/L VBG O2 Sat (Real) (95-100) VBG Base Excess (-2.0-2.0) VBG Hemoglobin VBG Carboxyhemoglobin (0.0-6.9) % T HGB A-a Gradient a/A Ratio Hemoglobin Carboxyhemoglobin (0.0-6.9) % THgb Methemoglobin (1.4-1.5) % POC Potassium (3.5-5.1) Temperature C POC O2 Flow Rate % Sodium 138 (135-145) mmol/L Potassium 4.3 D (3.5-5.1) mmol/L Chloride 102 (98-107) mmol/L Carbon Dioxide 7 L* (22-30) mmol/L Anion Gap 33.4 H BUN 55 H (7-17) mg/dL Creatinine 1.76 H (0.52-1.04) mg/dL Estimated GFR 29.3 ML/MIN Glucose 626 H* (74-106) mg/dL POC Glucometer 533 H* (50 to 500) mg/dL Lactic Acid (0.4-2.0) Calcium 9.1 (8.4-10.2) mg/dL Magnesium (1.6-2.3) mg/dL Total Bilirubin (0.2-1.3) mg/dL AST (14-36) U/L ALT (0-35) U/L Alkaline Phosphatase (38-126) U/L Ammonia (9-30) umol/L Troponin I 0.050 H* (0.000-0.033) ng/mL Serum Total Protein (6.3-8.2) g/dL Albumin (3.5-5.0) g/dL Urine Color (Yellow) Urine Appearance (Clear) Urine pH (4.6-8.0) Ur Specific [place] (1.005-1.030) Urine Protein (Negative) Urine Glucose (UA) (Negative) mg/dL Urine Ketones (Negative) Urine Blood (Negative) Urine Nitrite (Negative) Urine Bilirubin (Negative) Urine Urobilinogen (0.2) mg/dL Ur Leukocyte Esterase (Negative) U Hyaline Cast (Auto) (0-2) /LPF Urine Microscopic RBC (0-5) /HPF Urine Microscopic WBC (0-5) /HPF Ur Epithelial Cells (None Seen) /HPF Urine Bacteria (None Seen) /HPF Urine Culture Reflexed (NO) Monoscreen (NEGATIVE) Influenza Type A Ag (NEGATIVE) Influenza Type B Ag (NEGATIVE) RSV (PCR) (NEGATIVE) SARS-CoV-2 (PCR) (NEGATIVE) 04/28/24 04/28/24 04/29/24 Range/Units 23:00 23:10 00:05 WBC (3.98-10.04) x10^3/uL RBC (3.93-5.22) x10^6/uL Hgb (11.2-15.7) g/dL Hct (34.1-44.9) % MCV (79.4-94.8) fL MCH (25.6-32.2) pg MCHC (32.2-35.5) g/dL RDW (11.7-14.4) % Plt Count (182-369) x10^3/uL MPV (9.4-12.3) fL Gran % (34.0-71.1) % Immature Gran % (Auto) (0.001-0.429) % Nucleat RBC Rel Count (0.00-0.2) % Eos # (Auto) (0.04-0.36) x10^3/uL Immature Gran # (Auto) (0.001-0.031) x10^3u/L Absolute Lymphs (auto) (1.18-3.74) x10^3/uL Absolute Monos (auto) (0.24-0.86) x10^3/uL Absolute Nucleated RBC (0.00-0.012) x10^3u/L Lymphocytes % (19.3-51.7) % Monocytes % (4.7-12.5) % Eosinophils % (0.7-5.8) % Basophils % (0.1-1.2) % Absolute Granulocytes (1.56-6.13) x10^3/uL Basophils # (0.01-0.08) x10^3/uL Puncture Site pCO2 (35-45) mmHg pO2 (75-100) mmHg pO2/FiO2 Ratio % Base Excess (-2.0-2.0) O2 Saturation (94-100) g/dF ABG pH (7.35-7.45) ABG HCO3 (22-28) ABG O2 Sat (Measured) (95-100) % Emanuel Test VBG pH (7.32-7.42) VBG pCO2 at Pat Temp (42-55) mm/Hg VBG pO2 at Pat Temp (25-40) mm/Hg VBG HCO3 (22-28) meq/L VBG O2 Sat (Real) (95-100) VBG Base Excess (-2.0-2.0) VBG Hemoglobin VBG Carboxyhemoglobin (0.0-6.9) % T HGB A-a Gradient a/A Ratio Hemoglobin Carboxyhemoglobin (0.0-6.9) % THgb Methemoglobin (1.4-1.5) % POC Potassium (3.5-5.1) Temperature C POC O2 Flow Rate % Sodium (135-145) mmol/L Potassium (3.5-5.1) mmol/L Chloride (98-107) mmol/L Carbon Dioxide (22-30) mmol/L Anion Gap BUN (7-17) mg/dL Creatinine (0.52-1.04) mg/dL Estimated GFR ML/MIN Glucose (74-106) mg/dL POC Glucometer 464 H 425 H (50 to 500) mg/dL Lactic Acid (0.4-2.0) Calcium (8.4-10.2) mg/dL Magnesium (1.6-2.3) mg/dL Total Bilirubin (0.2-1.3) mg/dL AST (14-36) U/L ALT (0-35) U/L Alkaline Phosphatase (38-126) U/L Ammonia (9-30) umol/L Troponin I (0.000-0.033) ng/mL Serum Total Protein (6.3-8.2) g/dL Albumin (3.5-5.0) g/dL Urine Color Yellow (Yellow) Urine Appearance Clear (Clear) Urine pH 5.0 (4.6-8.0) Ur Specific [place] 1.020 (1.005-1.030) Urine Protein Negative (Negative) Urine Glucose (UA) >=1000 A (Negative) mg/dL Urine Ketones 40 A (Negative) Urine Blood Moderate A (Negative) Urine Nitrite Negative (Negative) Urine Bilirubin Negative (Negative) Urine Urobilinogen 0.2 (0.2) mg/dL Ur Leukocyte Esterase Negative (Negative) U Hyaline Cast (Auto) 3-5 A (0-2) /LPF Urine Microscopic RBC 11-20 A (0-5) /HPF Urine Microscopic WBC 0-2 (0-5) /HPF Ur Epithelial Cells None Seen (None Seen) /HPF Urine Bacteria None Seen (None Seen) /HPF Urine Culture Reflexed NO (NO) Monoscreen (NEGATIVE) Influenza Type A Ag (NEGATIVE) Influenza Type B Ag (NEGATIVE) RSV (PCR) (NEGATIVE) SARS-CoV-2 (PCR) (NEGATIVE) 04/29/24 04/29/24 04/29/24 Range/Units 01:10 02:09 02:18 WBC (3.98-10.04) x10^3/uL RBC (3.93-5.22) x10^6/uL Hgb (11.2-15.7) g/dL Hct (34.1-44.9) % MCV (79.4-94.8) fL MCH (25.6-32.2) pg MCHC (32.2-35.5) g/dL RDW (11.7-14.4) % Plt Count (182-369) x10^3/uL MPV (9.4-12.3) fL Gran % (34.0-71.1) % Immature Gran % (Auto) (0.001-0.429) % Nucleat RBC Rel Count (0.00-0.2) % Eos # (Auto) (0.04-0.36) x10^3/uL Immature Gran # (Auto) (0.001-0.031) x10^3u/L Absolute Lymphs (auto) (1.18-3.74) x10^3/uL Absolute Monos (auto) (0.24-0.86) x10^3/uL Absolute Nucleated RBC (0.00-0.012) x10^3u/L Lymphocytes % (19.3-51.7) % Monocytes % (4.7-12.5) % Eosinophils % (0.7-5.8) % Basophils % (0.1-1.2) % Absolute Granulocytes (1.56-6.13) x10^3/uL Basophils # (0.01-0.08) x10^3/uL Puncture Site pCO2 (35-45) mmHg pO2 (75-100) mmHg pO2/FiO2 Ratio % Base Excess (-2.0-2.0) O2 Saturation (94-100) g/dF ABG pH (7.35-7.45) ABG HCO3 (22-28) ABG O2 Sat (Measured) (95-100) % Emanuel Test VBG pH (7.32-7.42) VBG pCO2 at Pat Temp (42-55) mm/Hg VBG pO2 at Pat Temp (25-40) mm/Hg VBG HCO3 (22-28) meq/L VBG O2 Sat (Real) (95-100) VBG Base Excess (-2.0-2.0) VBG Hemoglobin VBG Carboxyhemoglobin (0.0-6.9) % T HGB A-a Gradient a/A Ratio Hemoglobin Carboxyhemoglobin (0.0-6.9) % THgb Methemoglobin (1.4-1.5) % POC Potassium (3.5-5.1) Temperature C POC O2 Flow Rate % Sodium (135-145) mmol/L Potassium (3.5-5.1) mmol/L Chloride (98-107) mmol/L Carbon Dioxide (22-30) mmol/L Anion Gap BUN (7-17) mg/dL Creatinine (0.52-1.04) mg/dL Estimated GFR ML/MIN Glucose (74-106) mg/dL POC Glucometer 389 H 377 H (50 to 500) mg/dL Lactic Acid (0.4-2.0) Calcium (8.4-10.2) mg/dL Magnesium (1.6-2.3) mg/dL Total Bilirubin (0.2-1.3) mg/dL AST (14-36) U/L ALT (0-35) U/L Alkaline Phosphatase (38-126) U/L Ammonia (9-30) umol/L Troponin I (0.000-0.033) ng/mL Serum Total Protein (6.3-8.2) g/dL Albumin (3.5-5.0) g/dL Urine Color Yellow (Yellow) Urine Appearance Clear (Clear) Urine pH 5.0 (4.6-8.0) Ur Specific [place] 1.020 (1.005-1.030) Urine Protein Negative (Negative) Urine Glucose (UA) >=1000 A (Negative) mg/dL Urine Ketones 15 A (Negative) Urine Blood Large A (Negative) Urine Nitrite Negative (Negative) Urine Bilirubin Negative (Negative) Urine Urobilinogen 1.0 A (0.2) mg/dL Ur Leukocyte Esterase Negative (Negative) U Hyaline Cast (Auto) 20-50 (0-2) /LPF Urine Microscopic RBC 21-50 A (0-5) /HPF Urine Microscopic WBC 0-2 (0-5) /HPF Ur Epithelial Cells None Seen (None Seen) /HPF Urine Bacteria None Seen (None Seen) /HPF Urine Culture Reflexed NO (NO) Monoscreen (NEGATIVE) Influenza Type A Ag (NEGATIVE) Influenza Type B Ag (NEGATIVE) RSV (PCR) (NEGATIVE) SARS-CoV-2 (PCR) (NEGATIVE) 04/29/24 04/29/24 04/29/24 Range/Units 02:20 02:20 03:12 WBC (3.98-10.04) x10^3/uL RBC (3.93-5.22) x10^6/uL Hgb (11.2-15.7) g/dL Hct (34.1-44.9) % MCV (79.4-94.8) fL MCH (25.6-32.2) pg MCHC (32.2-35.5) g/dL RDW (11.7-14.4) % Plt Count (182-369) x10^3/uL MPV (9.4-12.3) fL Gran % (34.0-71.1) % Immature Gran % (Auto) (0.001-0.429) % Nucleat RBC Rel Count (0.00-0.2) % Eos # (Auto) (0.04-0.36) x10^3/uL Immature Gran # (Auto) (0.001-0.031) x10^3u/L Absolute Lymphs (auto) (1.18-3.74) x10^3/uL Absolute Monos (auto) (0.24-0.86) x10^3/uL Absolute Nucleated RBC (0.00-0.012) x10^3u/L Lymphocytes % (19.3-51.7) % Monocytes % (4.7-12.5) % Eosinophils % (0.7-5.8) % Basophils % (0.1-1.2) % Absolute Granulocytes (1.56-6.13) x10^3/uL Basophils # (0.01-0.08) x10^3/uL Puncture Site pCO2 (35-45) mmHg pO2 (75-100) mmHg pO2/FiO2 Ratio 21.0 % Base Excess (-2.0-2.0) O2 Saturation (94-100) g/dF ABG pH (7.35-7.45) ABG HCO3 (22-28) ABG O2 Sat (Measured) (95-100) % Emanuel Test VBG pH 7.40 (7.32-7.42) VBG pCO2 at Pat Temp 41 L (42-55) mm/Hg VBG pO2 at Pat Temp 59 H (25-40) mm/Hg VBG HCO3 25.4 (22-28) meq/L VBG O2 Sat (Real) 90.4 L (95-100) VBG Base Excess 0.5 (-2.0-2.0) VBG Hemoglobin 11.4 VBG Carboxyhemoglobin 3.7 (0.0-6.9) % T HGB A-a Gradient a/A Ratio Hemoglobin Carboxyhemoglobin (0.0-6.9) % THgb Methemoglobin (1.4-1.5) % POC Potassium 4.1 (3.5-5.1) Temperature C POC O2 Flow Rate % Sodium 137 (135-145) mmol/L Potassium 4.0 (3.5-5.1) mmol/L Chloride 102 (98-107) mmol/L Carbon Dioxide 24 (22-30) mmol/L Anion Gap 15.4 H BUN 56 H (7-17) mg/dL Creatinine 1.74 H (0.52-1.04) mg/dL Estimated GFR 29.7 ML/MIN Glucose 370 H (74-106) mg/dL POC Glucometer 303 H (50 to 500) mg/dL Lactic Acid (0.4-2.0) Calcium 8.9 (8.4-10.2) mg/dL Magnesium (1.6-2.3) mg/dL Total Bilirubin (0.2-1.3) mg/dL AST (14-36) U/L ALT (0-35) U/L Alkaline Phosphatase (38-126) U/L Ammonia (9-30) umol/L Troponin I (0.000-0.033) ng/mL Serum Total Protein (6.3-8.2) g/dL Albumin (3.5-5.0) g/dL Urine Color (Yellow) Urine Appearance (Clear) Urine pH (4.6-8.0) Ur Specific [place] (1.005-1.030) Urine Protein (Negative) Urine Glucose (UA) (Negative) mg/dL Urine Ketones (Negative) Urine Blood (Negative) Urine Nitrite (Negative) Urine Bilirubin (Negative) Urine Urobilinogen (0.2) mg/dL Ur Leukocyte Esterase (Negative) U Hyaline Cast (Auto) (0-2) /LPF Urine Microscopic RBC (0-5) /HPF Urine Microscopic WBC (0-5) /HPF Ur Epithelial Cells (None Seen) /HPF Urine Bacteria (None Seen) /HPF Urine Culture Reflexed (NO) Monoscreen (NEGATIVE) Influenza Type A Ag (NEGATIVE) Influenza Type B Ag (NEGATIVE) RSV (PCR) (NEGATIVE) SARS-CoV-2 (PCR) (NEGATIVE) 04/29/24 04/29/24 Range/Units 04:07 05:18 WBC (3.98-10.04) x10^3/uL RBC (3.93-5.22) x10^6/uL Hgb (11.2-15.7) g/dL Hct (34.1-44.9) % MCV (79.4-94.8) fL MCH (25.6-32.2) pg MCHC (32.2-35.5) g/dL RDW (11.7-14.4) % Plt Count (182-369) x10^3/uL MPV (9.4-12.3) fL Gran % (34.0-71.1) % Immature Gran % (Auto) (0.001-0.429) % Nucleat RBC Rel Count (0.00-0.2) % Eos # (Auto) (0.04-0.36) x10^3/uL Immature Gran # (Auto) (0.001-0.031) x10^3u/L Absolute Lymphs (auto) (1.18-3.74) x10^3/uL Absolute Monos (auto) (0.24-0.86) x10^3/uL Absolute Nucleated RBC (0.00-0.012) x10^3u/L Lymphocytes % (19.3-51.7) % Monocytes % (4.7-12.5) % Eosinophils % (0.7-5.8) % Basophils % (0.1-1.2) % Absolute Granulocytes (1.56-6.13) x10^3/uL Basophils # (0.01-0.08) x10^3/uL Puncture Site pCO2 (35-45) mmHg pO2 (75-100) mmHg pO2/FiO2 Ratio % Base Excess (-2.0-2.0) O2 Saturation (94-100) g/dF ABG pH (7.35-7.45) ABG HCO3 (22-28) ABG O2 Sat (Measured) (95-100) % Emanuel Test VBG pH (7.32-7.42) VBG pCO2 at Pat Temp (42-55) mm/Hg VBG pO2 at Pat Temp (25-40) mm/Hg VBG HCO3 (22-28) meq/L VBG O2 Sat (Real) (95-100) VBG Base Excess (-2.0-2.0) VBG Hemoglobin VBG Carboxyhemoglobin (0.0-6.9) % T HGB A-a Gradient a/A Ratio Hemoglobin Carboxyhemoglobin (0.0-6.9) % THgb Methemoglobin (1.4-1.5) % POC Potassium (3.5-5.1) Temperature C POC O2 Flow Rate % Sodium (135-145) mmol/L Potassium (3.5-5.1) mmol/L Chloride (98-107) mmol/L Carbon Dioxide (22-30) mmol/L Anion Gap BUN (7-17) mg/dL Creatinine (0.52-1.04) mg/dL Estimated GFR ML/MIN Glucose (74-106) mg/dL POC Glucometer 249 H 237 H (50 to 500) mg/dL Lactic Acid (0.4-2.0) Calcium (8.4-10.2) mg/dL Magnesium (1.6-2.3) mg/dL Total Bilirubin (0.2-1.3) mg/dL AST (14-36) U/L ALT (0-35) U/L Alkaline Phosphatase (38-126) U/L Ammonia (9-30) umol/L Troponin I (0.000-0.033) ng/mL Serum Total Protein (6.3-8.2) g/dL Albumin (3.5-5.0) g/dL Urine Color (Yellow) Urine Appearance (Clear) Urine pH (4.6-8.0) Ur Specific [place] (1.005-1.030) Urine Protein (Negative) Urine Glucose (UA) (Negative) mg/dL Urine Ketones (Negative) Urine Blood (Negative) Urine Nitrite (Negative) Urine Bilirubin (Negative) Urine Urobilinogen (0.2) mg/dL Ur Leukocyte Esterase (Negative) U Hyaline Cast (Auto) (0-2) /LPF Urine Microscopic RBC (0-5) /HPF Urine Microscopic WBC (0-5) /HPF Ur Epithelial Cells (None Seen) /HPF Urine Bacteria (None Seen) /HPF Urine Culture Reflexed (NO) Monoscreen (NEGATIVE) Influenza Type A Ag (NEGATIVE) Influenza Type B Ag (NEGATIVE) RSV (PCR) (NEGATIVE) SARS-CoV-2 (PCR) (NEGATIVE) Radiology Exams: Radiology Procedures Category Date Time Status CHEST 1 VIEW (PORTABLE) Stat Exams 04/28/24 18:29 Taken HEAD WITHOUT CONTRAST [CT] Stat Exams 04/28/24 18:27 Taken Multi-Disciplinary Progress Notes: Multi-Disciplinary Progress Notes 04/28/24 20:27 Respiratory Note by Cookie Parikh Dr ordered VBG, per discussion with him, okay to use results from blood drawn at 1921 for repeat lactic Initialized on 04/28/24 20:27 - END OF NOTE Assessment/Plan (1) DKA (diabetic ketoacidosis) Current Visit: Yes Status: Acute Assessment & Plan: -CMP reviewed - Gap closed, Co2 levels now wnl, blood glucose levels now 124- continue DKA protocol -titrate off insulin drip -subq SSI/glargine -ADA diet- nurse bedside swallow eval -Patient received 2L fluid bolus - vitals stable Code(s): E11.10 - TYPE 2 DIABETES MELLITUS WITH KETOACIDOSIS WITHOUT COMA (2) Pneumonia Current Visit: Yes Status: Acute Assessment & Plan: -CXR showing right infiltrate -Will start aztreonam/azithromycin - renal dosed by pharmacy -Blood/sputum cultures -procal -supplemental oxygen with spo2 goal > 92% - RA at baseline -titrate Code(s): J18.9 - PNEUMONIA, UNSPECIFIED ORGANISM (3) Hyperkalemia Current Visit: Yes Status: Acute Assessment & Plan: -CMP reviewed, potassium levels now WNL - received lasix in ED - okay to add KCL to IVF continue to monitor -tele Code(s): E87.5 - HYPERKALEMIA (4) Acute kidney injury Current Visit: Yes Status: Acute Assessment & Plan: -monitor renal/lytes -avoid nephrotoxic agents -CMP reviewed, baseline around 1.2 improving -now at 1.68 <1.76 -Continue IVF Code(s): N17.9 - ACUTE KIDNEY FAILURE, UNSPECIFIED (5) Leukocytosis Current Visit: Yes Status: Acute Assessment & Plan: -Most likely secondary to pneumonia - see plan above -trend Code(s): D72.829 - ELEVATED WHITE BLOOD CELL COUNT, UNSPECIFIED (6) Elevated troponin Current Visit: Yes Status: Acute Assessment & Plan: in the setting of acute kidney injury and hypovolemia, unlikely to reflect true ACS. Trend troponin -No chest pain Code(s): R79.89 - OTHER SPECIFIED ABNORMAL FINDINGS OF BLOOD CHEMISTRY (7) Hypertension Current Visit: Yes Status: Acute Assessment & Plan: -stable although slightly on the low side - continue to monitor for now CODE STATUS: Full code Prophylaxis: Heparin Dispo: Place in ICU Code(s): I10 - ESSENTIAL (PRIMARY) HYPERTENSION
[2024-04-29 05:50] LABS: VBG HEMOGLOBIN 11.1; VBG O2 SATURATION 92.8 (95-100); VBG POTASSIUM 3.8 (3.5-5.1); VBG pH 7.4 (7.32-7.42)
[2024-04-29 05:51] LABS: Hematocrit 30.5 % (34.1-44.9); Hemoglobin 10.6 g/dL (11.2-15.7); Mean Corpuscular Hemoglobin 29.5 pg (25.6-32.2); Mean Corpuscular Hgb Concent. 34.8 g/dL (32.2-35.5); Mean Platelet Volume 9.9 fL (9.4-12.3); Platelet Count 265 x10^3/uL (182-369); Red Blood Count 3.59 x10^6/uL (3.93-5.22); Red Cell Distribution Width 12.5 % (11.7-14.4)
[2024-04-29 06:17] LABS: ANION GAP 12.4 MEQ/L (5-15); Calcium 8.7 mg/dL (8.4-10.2); Creatinine 1 1.68 mg/dL (0.52-1.04); EST GLOMERULAR FILTRATION RATE 30.9 ML/MIN; Potassium 3.6 mmol/L (3.5-5.1)
--- NOTE | 2024-04-29 08:04 | XRAY ---
Indication: Confusion. Lethargy. Multiple contiguous axial images obtained through the head without contrast. Comparison: February 28, 2024 Minimal motion artifact. Again age-appropriate global atrophy and minimal periventricular degenerative micro-ischemia bilaterally. No acute intracranial hemorrhage, abnormal extra-axial fluid collection, or mass effect. Fourth ventricle is midline without hydrocephalus. Bony calvarium intact. Visualized paranasal sinuses and mastoid air cells are clear. Impression: Grossly stable nonacute senile brain.
--- NOTE | 2024-04-29 08:21 | XRAY ---
Indication: Leukocytosis. Comparison: June 09, 2022. Portable chest again hyperinflated with new right suprahilar infiltrate versus atelectasis. Remaining heart and lungs unremarkable. Bony thorax intact again with osteopenia and mild degenerative changes. Comment: Right lung finding not reported by interpreting ER clinician. Telephone report given to Dr. Gan at 0815 hrs. on April 29, 2024.
[2024-04-29] MEDS: PHARMACY DOSING REQUEST MC ONE (08:42)
[2024-04-29] MEDS: Zithromax 500 MG/ 250 ML NaCl Premix 500 MG/250 ML IVPB IV SCH (10:04)
[2024-04-29] MEDS: Zofran 4 MG/2 ML VIAL IV PRN (10:47)
[2024-04-29 11:02] LABS: ANION GAP 13.4 MEQ/L (5-15); Calcium 8.9 mg/dL (8.4-10.2); Creatinine 1 1.63 mg/dL (0.52-1.04); EST GLOMERULAR FILTRATION RATE 32.1 ML/MIN; PROCALCITONIN 1.8 ng/mL (0.030-0.080); Potassium 3.8 mmol/L (3.5-5.1)
[2024-04-29] MEDS ORDERED: NON-FORMULARY ITEM (Naloxone Hcl [Narcan] 4 MG Spray) NS PRN (11:02)
[2024-04-29] MEDS ORDERED: SUMATRIPTAN SUCCINATE 100 MG PO PRN (11:02)
[2024-04-29] MEDS: AZACTAM 1 GM*** 1 GM in Sodium Chloride 100ML MINI-BAG PLUS 100 ML IV SCH (11:09)
[2024-04-29] MEDS ORDERED: MEDICATION INTERVENTION MC SCH ×3 (11:30)
[2024-04-29] MEDS: Lopressor 50 MG PO SCH (11:54)
[2024-04-29] MEDS: Paxil 20 MG PO SCH (11:54)
[2024-04-29] MEDS: VITAMIN D2 PO SCH (12:59)
[2024-04-29] MEDS: PLAVIX Tablet PO SCH (12:59)
[2024-04-29] MEDS: Neurontin PO SCH (14:23)
[2024-04-29] MEDS ORDERED: SILDENAFIL CITRATE 25 MG PO SCH (15:00)
[2024-04-29 15:11] LABS: ANION GAP 12.1 MEQ/L (5-15); Calcium 8.4 mg/dL (8.4-10.2); Creatinine 1 1.45 mg/dL (0.52-1.04); EST GLOMERULAR FILTRATION RATE 36.9 ML/MIN; Potassium 4.1 mmol/L (3.5-5.1)
[2024-04-29] MEDS: Lasix 20 MG/2 ML IV ONE (15:37)
[2024-04-29 18:50] LABS: ANION GAP 11.8 MEQ/L (5-15); Calcium 8.6 mg/dL (8.4-10.2); Creatinine 1 1.35 mg/dL (0.52-1.04); EST GLOMERULAR FILTRATION RATE 40.2 ML/MIN; Potassium 3.7 mmol/L (3.5-5.1)
[2024-04-29] MEDS: ZOCOR 20MG PO SCH (21:36)
[2024-04-29] MEDS: Pepcid 20 MG PO SCH (21:36)
[2024-04-29] MEDS ORDERED: NON-FORMULARY ITEM (Famotidine [Pepcid] 40 MG Tablet) PO SCH (22:00)
[2024-04-29 23:03] LABS: ANION GAP 10.2 MEQ/L (5-15); Calcium 8.3 mg/dL (8.4-10.2); Creatinine 1 1.14 mg/dL (0.52-1.04); EST GLOMERULAR FILTRATION RATE 49.3 ML/MIN; Potassium 3.9 mmol/L (3.5-5.1)
[2024-04-30 03:00] LABS: Absolute Neutrophil Ct (ANC) 9.11 x10^3/uL (1.56-6.13); BASOPHIL % 0.4 % (0.1-1.2); Basophil (Absolute #) 0.05 x10^3/uL (0.01-0.08); Eosinophil % 1.5 % (0.7-5.8); Hematocrit 30.5 % (34.1-44.9); Hemoglobin 10.4 g/dL (11.2-15.7); IMMATURE GRAN # 0.04 x10^3u/L (0.001-0.031); IMMATURE GRAN % 0.3 % (0.001-0.429); Lymphocyte (Absolute #) 2.89 x10^3/uL (1.18-3.74); Lymphocytes % 21.6 % (19.3-51.7); Mean Cell Volume 87.9 fL (79.4-94.8); Mean Corpuscular Hgb Concent. 34.1 g/dL (32.2-35.5); Monocyte (Absolute #) 1.07 x10^3/uL (0.24-0.86); Neutrophil % 68.2 % (34.0-71.1); Platelet Count 204 x10^3/uL (182-369); Red Blood Count 3.47 x10^6/uL (3.93-5.22); Red Cell Distribution Width 13.1 % (11.7-14.4); White Blood Count 13.4 x10^3/uL (3.98-10.04)
[2024-04-30 03:17] LABS: ALBUMIN 2.9 g/dL (3.5-5.0); ANION GAP 10.1 MEQ/L (5-15); BILIRUBIN,TOTAL 0.3 mg/dL (0.2-1.3); Calcium 8.3 mg/dL (8.4-10.2); Creatinine 1 1.05 mg/dL (0.52-1.04); EST GLOMERULAR FILTRATION RATE 54.4 ML/MIN; Potassium 3.7 mmol/L (3.5-5.1); Total Protein 5.5 g/dL (6.3-8.2)
--- NOTE | 2024-04-30 05:12 | PCM.NOTE ---
Date and Time: 04/30/24 0510 Subjective Assessment: HPI: is a 79 year old female with history of type 2 diabetes, pulmonary HTN, HLD, hypothyroid, hypertension, narcolepsy, GERD, and recent C-spine fracture, admitted 04/28/24 with DKA and pneumonia.Note, history is obtained from chart, as patient is severely lethargic and unable to answer questions. Per ED physician, patient presented with a few days of progressive vomiting, and lethargy. She had a C-spine fracture a few weeks ago, and remains in a c-collar. On arrival, she was found to be in DKA. In the ED, she was initially given 1 L normal saline, but also given Lasix and calcium for hyperkalemia. Upon discussion with oncoming evening ED provider, patient was asked to be given another liter of fluid and started on insulin drip per DKA protocol. Unable to obtain any further history from patient secondary to mental status. CXR showing new right suprahilar infiltrate versus atelectasis. CT head with no acute findings. 04/29/24: Met with patient and brother at bedside. Patient still with confusion. Patient A&O to self/place. Patient/family unable to provide history or home medication information. Patient did state that her CGM was not functioning properly at home. WBC worse today at 18. CXR showing right suprahilar infiltrate. Will start aztreonam and azithromycin due to allergy profile. Blood and sputum cultures pending. Denies fever,cough, cp, abdominal pain, SMITH, dizziness, N/V/D. 04/30/24: Met with patient and daughter at bedside. Patient much improved overnight. Now at baseline mentation A&O x 4. Endorses mild dyspnea, cough, and some nausea/low abdominal pain this morning after breakfast. DKA has resolved. BIBI resolved. WBC improving now at 13.4<18. Home insulin regimen resumed. Denies fever,cp, SMITH, dizziness, or V/D. - Review of Systems Constitutional: No Symptoms Eyes: No Symptoms Ears, Nose, & Throat: No Symptoms Respiratory: Cough, Short Of Breath Cardiac: No Symptoms Abdominal/Gastrointestinal: Abdominal Pain, Nausea Genitourinary Symptoms: No Symptoms Musculoskeletal: Back Pain, Neck Pain, Other Skin: No Symptoms Neurological: No Symptoms Psychological: No Symptoms Endocrine: No Symptoms Hematologic/Lymphatic: No Symptoms Immunological/Allergic: No Symptoms Objective Exam General Appearance: no apparent distress Neurologic Exam: alert, oriented x 3, cooperative Skin Exam: pale Eye Exam: PERRL Neck Exam: normal inspection Respiratory Exam: crackles/rales Cardiovascular Exam: regular rate/rhythm, normal heart sounds Gastrointestinal/Abdomen Exam: soft, normal bowel sounds Extremity Exam: normal inspection Back Exam: normal inspection Pelvic Exam: deferred Rectal Exam: deferred Objective Data Vital Signs: Vital Signs - 24 hr Temp Pulse Resp BP Pulse Ox 04/30/24 04:00 98.2 F 71 16 139/65 98 04/30/24 03:34 68 04/30/24 03:00 68 17 132/61 04/30/24 02:00 62 14 141/68 04/30/24 01:00 61 21 127/62 97 04/30/24 00:01 68 04/30/24 00:00 97.7 F 61 15 130/62 97 04/29/24 23:00 67 19 138/60 04/29/24 22:00 82 18 147/64 04/29/24 21:00 80 14 132/81 04/29/24 20:00 98.4 F 75 14 119/51 98 04/29/24 19:15 77 04/29/24 19:00 71 14 126/53 04/29/24 18:36 98 04/29/24 18:00 71 18 127/62 95 04/29/24 17:00 72 17 137/72 96 04/29/24 16:00 97.8 F 74 17 133/59 97 04/29/24 15:50 74 04/29/24 15:38 74 13 128/51 98 04/29/24 15:29 98 04/29/24 15:00 70 19 109/41 96 04/29/24 14:00 75 21 118/51 97 04/29/24 13:00 72 10 L 125/71 96 04/29/24 12:00 97.9 F 69 27 H 103/52 96 04/29/24 11:00 70 22 103/47 94 L 04/29/24 10:00 69 15 112/45 97 04/29/24 09:00 68 22 103/44 96 04/29/24 08:00 97.5 F 67 19 106/42 95 04/29/24 07:00 77 22 105/44 04/29/24 06:00 74 18 102/44 Pain Assessment - Last Documented Pain Intensity 0 Intake and Output: Intake & Output 04/27/24 04/28/24 04/29/24 04/30/24 11:59 11:59 11:59 11:59 Intake Total 2327 3347 Output Total 2100 1025 Balance 227 2322 Weight 83.4 kg Lab Results: Lab Results-Last 24 Hours 04/29/24 04/29/24 04/29/24 Range/Units 05:18 05:40 05:40 WBC (3.98-10.04) x10^3/uL RBC (3.93-5.22) x10^6/uL Hgb (11.2-15.7) g/dL Hct (34.1-44.9) % MCV (79.4-94.8) fL MCH (25.6-32.2) pg MCHC (32.2-35.5) g/dL RDW (11.7-14.4) % Plt Count (182-369) x10^3/uL MPV (9.4-12.3) fL Gran % (34.0-71.1) % Immature Gran % (Auto) (0.001-0.429) % Nucleat RBC Rel Count (0.00-0.2) % Eos # (Auto) (0.04-0.36) x10^3/uL Immature Gran # (Auto) (0.001-0.031) x10^3u/L Absolute Lymphs (auto) (1.18-3.74) x10^3/uL Absolute Monos (auto) (0.24-0.86) x10^3/uL Absolute Nucleated RBC (0.00-0.012) x10^3u/L Lymphocytes % (19.3-51.7) % Monocytes % (4.7-12.5) % Eosinophils % (0.7-5.8) % Basophils % (0.1-1.2) % Absolute Granulocytes (1.56-6.13) x10^3/uL Basophils # (0.01-0.08) x10^3/uL pO2/FiO2 Ratio 21.0 % VBG pH 7.40 (7.32-7.42) VBG pCO2 at Pat Temp 42 (42-55) mm/Hg VBG pO2 at Pat Temp 59 H (25-40) mm/Hg VBG HCO3 26.0 (22-28) meq/L VBG O2 Sat (Real) 92.8 L (95-100) VBG Base Excess 1.0 (-2.0-2.0) VBG Hemoglobin 11.1 VBG Carboxyhemoglobin 4.0 (0.0-6.9) % T HGB POC Potassium 3.8 (3.5-5.1) Sodium (135-145) mmol/L Potassium (3.5-5.1) mmol/L Chloride (98-107) mmol/L Carbon Dioxide (22-30) mmol/L Anion Gap (5-15) MEQ/L BUN (7-17) mg/dL Creatinine (0.52-1.04) mg/dL Estimated GFR ML/MIN Glucose (74-106) mg/dL POC Glucometer 237 H (74 to 106) mg/dL Hemoglobin A1c (4.5-6.0) % Lactic Acid 2.4 H (0.4-2.0) Calcium (8.4-10.2) mg/dL Total Bilirubin (0.2-1.3) mg/dL AST (14-36) U/L ALT (0-35) U/L Alkaline Phosphatase (38-126) U/L Troponin I (0.000-0.033) ng/mL Serum Total Protein (6.3-8.2) g/dL Albumin (3.5-5.0) g/dL Procalcitonin (0.030-0.080) ng/mL 04/29/24 04/29/24 04/29/24 Range/Units 05:43 05:43 05:43 WBC 18.0 H (3.98-10.04) x10^3/uL RBC 3.59 L (3.93-5.22) x10^6/uL Hgb 10.6 L (11.2-15.7) g/dL Hct 30.5 L (34.1-44.9) % MCV 85.0 D (79.4-94.8) fL MCH 29.5 (25.6-32.2) pg MCHC 34.8 (32.2-35.5) g/dL RDW 12.5 (11.7-14.4) % Plt Count 265 (182-369) x10^3/uL MPV 9.9 (9.4-12.3) fL Gran % (34.0-71.1) % Immature Gran % (Auto) (0.001-0.429) % Nucleat RBC Rel Count (0.00-0.2) % Eos # (Auto) (0.04-0.36) x10^3/uL Immature Gran # (Auto) (0.001-0.031) x10^3u/L Absolute Lymphs (auto) (1.18-3.74) x10^3/uL Absolute Monos (auto) (0.24-0.86) x10^3/uL Absolute Nucleated RBC (0.00-0.012) x10^3u/L Lymphocytes % (19.3-51.7) % Monocytes % (4.7-12.5) % Eosinophils % (0.7-5.8) % Basophils % (0.1-1.2) % Absolute Granulocytes (1.56-6.13) x10^3/uL Basophils # (0.01-0.08) x10^3/uL pO2/FiO2 Ratio % VBG pH (7.32-7.42) VBG pCO2 at Pat Temp (42-55) mm/Hg VBG pO2 at Pat Temp (25-40) mm/Hg VBG HCO3 (22-28) meq/L VBG O2 Sat (Real) (95-100) VBG Base Excess (-2.0-2.0) VBG Hemoglobin VBG Carboxyhemoglobin (0.0-6.9) % T HGB POC Potassium (3.5-5.1) Sodium 138 (135-145) mmol/L Potassium 3.6 (3.5-5.1) mmol/L Chloride 106 (98-107) mmol/L Carbon Dioxide 24 (22-30) mmol/L Anion Gap 12.4 (5-15) MEQ/L BUN 50 H (7-17) mg/dL Creatinine 1.68 H (0.52-1.04) mg/dL Estimated GFR 30.9 ML/MIN Glucose 233 H (74-106) mg/dL POC Glucometer (74 to 106) mg/dL Hemoglobin A1c 10.46 H (4.5-6.0) % Lactic Acid (0.4-2.0) Calcium 8.7 (8.4-10.2) mg/dL Total Bilirubin (0.2-1.3) mg/dL AST (14-36) U/L ALT (0-35) U/L Alkaline Phosphatase (38-126) U/L Troponin I (0.000-0.033) ng/mL Serum Total Protein (6.3-8.2) g/dL Albumin (3.5-5.0) g/dL Procalcitonin (0.030-0.080) ng/mL 04/29/24 04/29/24 04/29/24 Range/Units 05:43 06:24 07:47 WBC (3.98-10.04) x10^3/uL RBC (3.93-5.22) x10^6/uL Hgb (11.2-15.7) g/dL Hct (34.1-44.9) % MCV (79.4-94.8) fL MCH (25.6-32.2) pg MCHC (32.2-35.5) g/dL RDW (11.7-14.4) % Plt Count (182-369) x10^3/uL MPV (9.4-12.3) fL Gran % (34.0-71.1) % Immature Gran % (Auto) (0.001-0.429) % Nucleat RBC Rel Count (0.00-0.2) % Eos # (Auto) (0.04-0.36) x10^3/uL Immature Gran # (Auto) (0.001-0.031) x10^3u/L Absolute Lymphs (auto) (1.18-3.74) x10^3/uL Absolute Monos (auto) (0.24-0.86) x10^3/uL Absolute Nucleated RBC (0.00-0.012) x10^3u/L Lymphocytes % (19.3-51.7) % Monocytes % (4.7-12.5) % Eosinophils % (0.7-5.8) % Basophils % (0.1-1.2) % Absolute Granulocytes (1.56-6.13) x10^3/uL Basophils # (0.01-0.08) x10^3/uL pO2/FiO2 Ratio % VBG pH (7.32-7.42) VBG pCO2 at Pat Temp (42-55) mm/Hg VBG pO2 at Pat Temp (25-40) mm/Hg VBG HCO3 (22-28) meq/L VBG O2 Sat (Real) (95-100) VBG Base Excess (-2.0-2.0) VBG Hemoglobin VBG Carboxyhemoglobin (0.0-6.9) % T HGB POC Potassium (3.5-5.1) Sodium (135-145) mmol/L Potassium (3.5-5.1) mmol/L Chloride (98-107) mmol/L Carbon Dioxide (22-30) mmol/L Anion Gap (5-15) MEQ/L BUN (7-17) mg/dL Creatinine (0.52-1.04) mg/dL Estimated GFR ML/MIN Glucose (74-106) mg/dL POC Glucometer 208 H 165 H (74 to 106) mg/dL Hemoglobin A1c (4.5-6.0) % Lactic Acid (0.4-2.0) Calcium (8.4-10.2) mg/dL Total Bilirubin (0.2-1.3) mg/dL AST (14-36) U/L ALT (0-35) U/L Alkaline Phosphatase (38-126) U/L Troponin I 0.731 H* (0.000-0.033) ng/mL Serum Total Protein (6.3-8.2) g/dL Albumin (3.5-5.0) g/dL Procalcitonin (0.030-0.080) ng/mL 04/29/24 04/29/24 04/29/24 Range/Units 08:47 09:59 09:59 WBC (3.98-10.04) x10^3/uL RBC (3.93-5.22) x10^6/uL Hgb (11.2-15.7) g/dL Hct (34.1-44.9) % MCV (79.4-94.8) fL MCH (25.6-32.2) pg MCHC (32.2-35.5) g/dL RDW (11.7-14.4) % Plt Count (182-369) x10^3/uL MPV (9.4-12.3) fL Gran % (34.0-71.1) % Immature Gran % (Auto) (0.001-0.429) % Nucleat RBC Rel Count (0.00-0.2) % Eos # (Auto) (0.04-0.36) x10^3/uL Immature Gran # (Auto) (0.001-0.031) x10^3u/L Absolute Lymphs (auto) (1.18-3.74) x10^3/uL Absolute Monos (auto) (0.24-0.86) x10^3/uL Absolute Nucleated RBC (0.00-0.012) x10^3u/L Lymphocytes % (19.3-51.7) % Monocytes % (4.7-12.5) % Eosinophils % (0.7-5.8) % Basophils % (0.1-1.2) % Absolute Granulocytes (1.56-6.13) x10^3/uL Basophils # (0.01-0.08) x10^3/uL pO2/FiO2 Ratio % VBG pH (7.32-7.42) VBG pCO2 at Pat Temp (42-55) mm/Hg VBG pO2 at Pat Temp (25-40) mm/Hg VBG HCO3 (22-28) meq/L VBG O2 Sat (Real) (95-100) VBG Base Excess (-2.0-2.0) VBG Hemoglobin VBG Carboxyhemoglobin (0.0-6.9) % T HGB POC Potassium (3.5-5.1) Sodium 140 (135-145) mmol/L Potassium 3.8 (3.5-5.1) mmol/L Chloride 107 (98-107) mmol/L Carbon Dioxide 23 (22-30) mmol/L Anion Gap 13.4 (5-15) MEQ/L BUN 49 H (7-17) mg/dL Creatinine 1.63 H (0.52-1.04) mg/dL Estimated GFR 32.1 ML/MIN Glucose 130 H (74-106) mg/dL POC Glucometer 155 H (74 to 106) mg/dL Hemoglobin A1c (4.5-6.0) % Lactic Acid (0.4-2.0) Calcium 8.9 (8.4-10.2) mg/dL Total Bilirubin (0.2-1.3) mg/dL AST (14-36) U/L ALT (0-35) U/L Alkaline Phosphatase (38-126) U/L Troponin I 0.848 H* (0.000-0.033) ng/mL Serum Total Protein (6.3-8.2) g/dL Albumin (3.5-5.0) g/dL Procalcitonin 1.800 H (0.030-0.080) ng/mL 04/29/24 04/29/24 04/29/24 Range/Units 10:00 10:52 11:57 WBC (3.98-10.04) x10^3/uL RBC (3.93-5.22) x10^6/uL Hgb (11.2-15.7) g/dL Hct (34.1-44.9) % MCV (79.4-94.8) fL MCH (25.6-32.2) pg MCHC (32.2-35.5) g/dL RDW (11.7-14.4) % Plt Count (182-369) x10^3/uL MPV (9.4-12.3) fL Gran % (34.0-71.1) % Immature Gran % (Auto) (0.001-0.429) % Nucleat RBC Rel Count (0.00-0.2) % Eos # (Auto) (0.04-0.36) x10^3/uL Immature Gran # (Auto) (0.001-0.031) x10^3u/L Absolute Lymphs (auto) (1.18-3.74) x10^3/uL Absolute Monos (auto) (0.24-0.86) x10^3/uL Absolute Nucleated RBC (0.00-0.012) x10^3u/L Lymphocytes % (19.3-51.7) % Monocytes % (4.7-12.5) % Eosinophils % (0.7-5.8) % Basophils % (0.1-1.2) % Absolute Granulocytes (1.56-6.13) x10^3/uL Basophils # (0.01-0.08) x10^3/uL pO2/FiO2 Ratio % VBG pH (7.32-7.42) VBG pCO2 at Pat Temp (42-55) mm/Hg VBG pO2 at Pat Temp (25-40) mm/Hg VBG HCO3 (22-28) meq/L VBG O2 Sat (Real) (95-100) VBG Base Excess (-2.0-2.0) VBG Hemoglobin VBG Carboxyhemoglobin (0.0-6.9) % T HGB POC Potassium (3.5-5.1) Sodium (135-145) mmol/L Potassium (3.5-5.1) mmol/L Chloride (98-107) mmol/L Carbon Dioxide (22-30) mmol/L Anion Gap (5-15) MEQ/L BUN (7-17) mg/dL Creatinine (0.52-1.04) mg/dL Estimated GFR ML/MIN Glucose (74-106) mg/dL POC Glucometer 124 H 120 H 136 H (74 to 106) mg/dL Hemoglobin A1c (4.5-6.0) % Lactic Acid (0.4-2.0) Calcium (8.4-10.2) mg/dL Total Bilirubin (0.2-1.3) mg/dL AST (14-36) U/L ALT (0-35) U/L Alkaline Phosphatase (38-126) U/L Troponin I (0.000-0.033) ng/mL Serum Total Protein (6.3-8.2) g/dL Albumin (3.5-5.0) g/dL Procalcitonin (0.030-0.080) ng/mL 04/29/24 04/29/24 04/29/24 Range/Units 12:55 14:00 14:53 WBC (3.98-10.04) x10^3/uL RBC (3.93-5.22) x10^6/uL Hgb (11.2-15.7) g/dL Hct (34.1-44.9) % MCV (79.4-94.8) fL MCH (25.6-32.2) pg MCHC (32.2-35.5) g/dL RDW (11.7-14.4) % Plt Count (182-369) x10^3/uL MPV (9.4-12.3) fL Gran % (34.0-71.1) % Immature Gran % (Auto) (0.001-0.429) % Nucleat RBC Rel Count (0.00-0.2) % Eos # (Auto) (0.04-0.36) x10^3/uL Immature Gran # (Auto) (0.001-0.031) x10^3u/L Absolute Lymphs (auto) (1.18-3.74) x10^3/uL Absolute Monos (auto) (0.24-0.86) x10^3/uL Absolute Nucleated RBC (0.00-0.012) x10^3u/L Lymphocytes % (19.3-51.7) % Monocytes % (4.7-12.5) % Eosinophils % (0.7-5.8) % Basophils % (0.1-1.2) % Absolute Granulocytes (1.56-6.13) x10^3/uL Basophils # (0.01-0.08) x10^3/uL pO2/FiO2 Ratio % VBG pH (7.32-7.42) VBG pCO2 at Pat Temp (42-55) mm/Hg VBG pO2 at Pat Temp (25-40) mm/Hg VBG HCO3 (22-28) meq/L VBG O2 Sat (Real) (95-100) VBG Base Excess (-2.0-2.0) VBG Hemoglobin VBG Carboxyhemoglobin (0.0-6.9) % T HGB POC Potassium (3.5-5.1) Sodium 139 (135-145) mmol/L Potassium 4.1 (3.5-5.1) mmol/L Chloride 108 H (98-107) mmol/L Carbon Dioxide 23 (22-30) mmol/L Anion Gap 12.1 (5-15) MEQ/L BUN 45 H (7-17) mg/dL Creatinine 1.45 H (0.52-1.04) mg/dL Estimated GFR 36.9 ML/MIN Glucose 185 H (74-106) mg/dL POC Glucometer 162 H 180 H (74 to 106) mg/dL Hemoglobin A1c (4.5-6.0) % Lactic Acid (0.4-2.0) Calcium 8.4 (8.4-10.2) mg/dL Total Bilirubin (0.2-1.3) mg/dL AST (14-36) U/L ALT (0-35) U/L Alkaline Phosphatase (38-126) U/L Troponin I (0.000-0.033) ng/mL Serum Total Protein (6.3-8.2) g/dL Albumin (3.5-5.0) g/dL Procalcitonin (0.030-0.080) ng/mL 04/29/24 04/29/24 04/29/24 Range/Units 14:55 16:00 16:59 WBC (3.98-10.04) x10^3/uL RBC (3.93-5.22) x10^6/uL Hgb (11.2-15.7) g/dL Hct (34.1-44.9) % MCV (79.4-94.8) fL MCH (25.6-32.2) pg MCHC (32.2-35.5) g/dL RDW (11.7-14.4) % Plt Count (182-369) x10^3/uL MPV (9.4-12.3) fL Gran % (34.0-71.1) % Immature Gran % (Auto) (0.001-0.429) % Nucleat RBC Rel Count (0.00-0.2) % Eos # (Auto) (0.04-0.36) x10^3/uL Immature Gran # (Auto) (0.001-0.031) x10^3u/L Absolute Lymphs (auto) (1.18-3.74) x10^3/uL Absolute Monos (auto) (0.24-0.86) x10^3/uL Absolute Nucleated RBC (0.00-0.012) x10^3u/L Lymphocytes % (19.3-51.7) % Monocytes % (4.7-12.5) % Eosinophils % (0.7-5.8) % Basophils % (0.1-1.2) % Absolute Granulocytes (1.56-6.13) x10^3/uL Basophils # (0.01-0.08) x10^3/uL pO2/FiO2 Ratio % VBG pH (7.32-7.42) VBG pCO2 at Pat Temp (42-55) mm/Hg VBG pO2 at Pat Temp (25-40) mm/Hg VBG HCO3 (22-28) meq/L VBG O2 Sat (Real) (95-100) VBG Base Excess (-2.0-2.0) VBG Hemoglobin VBG Carboxyhemoglobin (0.0-6.9) % T HGB POC Potassium (3.5-5.1) Sodium (135-145) mmol/L Potassium (3.5-5.1) mmol/L Chloride (98-107) mmol/L Carbon Dioxide (22-30) mmol/L Anion Gap (5-15) MEQ/L BUN (7-17) mg/dL Creatinine (0.52-1.04) mg/dL Estimated GFR ML/MIN Glucose (74-106) mg/dL POC Glucometer 180 H 179 H 172 H (74 to 106) mg/dL Hemoglobin A1c (4.5-6.0) % Lactic Acid (0.4-2.0) Calcium (8.4-10.2) mg/dL Total Bilirubin (0.2-1.3) mg/dL AST (14-36) U/L ALT (0-35) U/L Alkaline Phosphatase (38-126) U/L Troponin I (0.000-0.033) ng/mL Serum Total Protein (6.3-8.2) g/dL Albumin (3.5-5.0) g/dL Procalcitonin (0.030-0.080) ng/mL 04/29/24 04/29/24 04/29/24 Range/Units 17:58 18:33 19:05 WBC (3.98-10.04) x10^3/uL RBC (3.93-5.22) x10^6/uL Hgb (11.2-15.7) g/dL Hct (34.1-44.9) % MCV (79.4-94.8) fL MCH (25.6-32.2) pg MCHC (32.2-35.5) g/dL RDW (11.7-14.4) % Plt Count (182-369) x10^3/uL MPV (9.4-12.3) fL Gran % (34.0-71.1) % Immature Gran % (Auto) (0.001-0.429) % Nucleat RBC Rel Count (0.00-0.2) % Eos # (Auto) (0.04-0.36) x10^3/uL Immature Gran # (Auto) (0.001-0.031) x10^3u/L Absolute Lymphs (auto) (1.18-3.74) x10^3/uL Absolute Monos (auto) (0.24-0.86) x10^3/uL Absolute Nucleated RBC (0.00-0.012) x10^3u/L Lymphocytes % (19.3-51.7) % Monocytes % (4.7-12.5) % Eosinophils % (0.7-5.8) % Basophils % (0.1-1.2) % Absolute Granulocytes (1.56-6.13) x10^3/uL Basophils # (0.01-0.08) x10^3/uL pO2/FiO2 Ratio % VBG pH (7.32-7.42) VBG pCO2 at Pat Temp (42-55) mm/Hg VBG pO2 at Pat Temp (25-40) mm/Hg VBG HCO3 (22-28) meq/L VBG O2 Sat (Real) (95-100) VBG Base Excess (-2.0-2.0) VBG Hemoglobin VBG Carboxyhemoglobin (0.0-6.9) % T HGB POC Potassium (3.5-5.1) Sodium 139 (135-145) mmol/L Potassium 3.7 (3.5-5.1) mmol/L Chloride 108 H (98-107) mmol/L Carbon Dioxide 23 (22-30) mmol/L Anion Gap 11.8 (5-15) MEQ/L BUN 40 H (7-17) mg/dL Creatinine 1.35 H (0.52-1.04) mg/dL Estimated GFR 40.2 ML/MIN Glucose 161 H (74-106) mg/dL POC Glucometer 165 H 152 H (74 to 106) mg/dL Hemoglobin A1c (4.5-6.0) % Lactic Acid (0.4-2.0) Calcium 8.6 (8.4-10.2) mg/dL Total Bilirubin (0.2-1.3) mg/dL AST (14-36) U/L ALT (0-35) U/L Alkaline Phosphatase (38-126) U/L Troponin I (0.000-0.033) ng/mL Serum Total Protein (6.3-8.2) g/dL Albumin (3.5-5.0) g/dL Procalcitonin (0.030-0.080) ng/mL 04/29/24 04/29/24 04/29/24 Range/Units 19:52 20:54 22:10 WBC (3.98-10.04) x10^3/uL RBC (3.93-5.22) x10^6/uL Hgb (11.2-15.7) g/dL Hct (34.1-44.9) % MCV (79.4-94.8) fL MCH (25.6-32.2) pg MCHC (32.2-35.5) g/dL RDW (11.7-14.4) % Plt Count (182-369) x10^3/uL MPV (9.4-12.3) fL Gran % (34.0-71.1) % Immature Gran % (Auto) (0.001-0.429) % Nucleat RBC Rel Count (0.00-0.2) % Eos # (Auto) (0.04-0.36) x10^3/uL Immature Gran # (Auto) (0.001-0.031) x10^3u/L Absolute Lymphs (auto) (1.18-3.74) x10^3/uL Absolute Monos (auto) (0.24-0.86) x10^3/uL Absolute Nucleated RBC (0.00-0.012) x10^3u/L Lymphocytes % (19.3-51.7) % Monocytes % (4.7-12.5) % Eosinophils % (0.7-5.8) % Basophils % (0.1-1.2) % Absolute Granulocytes (1.56-6.13) x10^3/uL Basophils # (0.01-0.08) x10^3/uL pO2/FiO2 Ratio % VBG pH (7.32-7.42) VBG pCO2 at Pat Temp (42-55) mm/Hg VBG pO2 at Pat Temp (25-40) mm/Hg VBG HCO3 (22-28) meq/L VBG O2 Sat (Real) (95-100) VBG Base Excess (-2.0-2.0) VBG Hemoglobin VBG Carboxyhemoglobin (0.0-6.9) % T HGB POC Potassium (3.5-5.1) Sodium (135-145) mmol/L Potassium (3.5-5.1) mmol/L Chloride (98-107) mmol/L Carbon Dioxide (22-30) mmol/L Anion Gap (5-15) MEQ/L BUN (7-17) mg/dL Creatinine (0.52-1.04) mg/dL Estimated GFR ML/MIN Glucose (74-106) mg/dL POC Glucometer 141 H 144 H 178 H (74 to 106) mg/dL Hemoglobin A1c (4.5-6.0) % Lactic Acid (0.4-2.0) Calcium (8.4-10.2) mg/dL Total Bilirubin (0.2-1.3) mg/dL AST (14-36) U/L ALT (0-35) U/L Alkaline Phosphatase (38-126) U/L Troponin I (0.000-0.033) ng/mL Serum Total Protein (6.3-8.2) g/dL Albumin (3.5-5.0) g/dL Procalcitonin (0.030-0.080) ng/mL 04/29/24 04/29/24 04/30/24 Range/Units 22:44 23:03 02:55 WBC 13.4 H (3.98-10.04) x10^3/uL RBC 3.47 L (3.93-5.22) x10^6/uL Hgb 10.4 L (11.2-15.7) g/dL Hct 30.5 L (34.1-44.9) % MCV 87.9 (79.4-94.8) fL MCH 30.0 (25.6-32.2) pg MCHC 34.1 (32.2-35.5) g/dL RDW 13.1 (11.7-14.4) % Plt Count 204 (182-369) x10^3/uL MPV 10.0 (9.4-12.3) fL Gran % 68.2 (34.0-71.1) % Immature Gran % (Auto) 0.3 (0.001-0.429) % Nucleat RBC Rel Count 0.0 (0.00-0.2) % Eos # (Auto) 0.20 (0.04-0.36) x10^3/uL Immature Gran # (Auto) 0.04 H (0.001-0.031) x10^3u/L Absolute Lymphs (auto) 2.89 (1.18-3.74) x10^3/uL Absolute Monos (auto) 1.07 H (0.24-0.86) x10^3/uL Absolute Nucleated RBC 0.00 (0.00-0.012) x10^3u/L Lymphocytes % 21.6 (19.3-51.7) % Monocytes % 8.0 (4.7-12.5) % Eosinophils % 1.5 (0.7-5.8) % Basophils % 0.4 (0.1-1.2) % Absolute Granulocytes 9.11 H (1.56-6.13) x10^3/uL Basophils # 0.05 (0.01-0.08) x10^3/uL pO2/FiO2 Ratio % VBG pH (7.32-7.42) VBG pCO2 at Pat Temp (42-55) mm/Hg VBG pO2 at Pat Temp (25-40) mm/Hg VBG HCO3 (22-28) meq/L VBG O2 Sat (Real) (95-100) VBG Base Excess (-2.0-2.0) VBG Hemoglobin VBG Carboxyhemoglobin (0.0-6.9) % T HGB POC Potassium (3.5-5.1) Sodium 137 (135-145) mmol/L Potassium 3.9 (3.5-5.1) mmol/L Chloride 109 H (98-107) mmol/L Carbon Dioxide 22 (22-30) mmol/L Anion Gap 10.2 (5-15) MEQ/L BUN 35 H (7-17) mg/dL Creatinine 1.14 H (0.52-1.04) mg/dL Estimated GFR 49.3 ML/MIN Glucose 188 H (74-106) mg/dL POC Glucometer 191 H (74 to 106) mg/dL Hemoglobin A1c (4.5-6.0) % Lactic Acid (0.4-2.0) Calcium 8.3 L (8.4-10.2) mg/dL Total Bilirubin (0.2-1.3) mg/dL AST (14-36) U/L ALT (0-35) U/L Alkaline Phosphatase (38-126) U/L Troponin I (0.000-0.033) ng/mL Serum Total Protein (6.3-8.2) g/dL Albumin (3.5-5.0) g/dL Procalcitonin (0.030-0.080) ng/mL 04/30/24 04/30/24 Range/Units 02:55 03:20 WBC (3.98-10.04) x10^3/uL RBC (3.93-5.22) x10^6/uL Hgb (11.2-15.7) g/dL Hct (34.1-44.9) % MCV (79.4-94.8) fL MCH (25.6-32.2) pg MCHC (32.2-35.5) g/dL RDW (11.7-14.4) % Plt Count (182-369) x10^3/uL MPV (9.4-12.3) fL Gran % (34.0-71.1) % Immature Gran % (Auto) (0.001-0.429) % Nucleat RBC Rel Count (0.00-0.2) % Eos # (Auto) (0.04-0.36) x10^3/uL Immature Gran # (Auto) (0.001-0.031) x10^3u/L Absolute Lymphs (auto) (1.18-3.74) x10^3/uL Absolute Monos (auto) (0.24-0.86) x10^3/uL Absolute Nucleated RBC (0.00-0.012) x10^3u/L Lymphocytes % (19.3-51.7) % Monocytes % (4.7-12.5) % Eosinophils % (0.7-5.8) % Basophils % (0.1-1.2) % Absolute Granulocytes (1.56-6.13) x10^3/uL Basophils # (0.01-0.08) x10^3/uL pO2/FiO2 Ratio % VBG pH (7.32-7.42) VBG pCO2 at Pat Temp (42-55) mm/Hg VBG pO2 at Pat Temp (25-40) mm/Hg VBG HCO3 (22-28) meq/L VBG O2 Sat (Real) (95-100) VBG Base Excess (-2.0-2.0) VBG Hemoglobin VBG Carboxyhemoglobin (0.0-6.9) % T HGB POC Potassium (3.5-5.1) Sodium 138 (135-145) mmol/L Potassium 3.7 (3.5-5.1) mmol/L Chloride 109 H (98-107) mmol/L Carbon Dioxide 23 (22-30) mmol/L Anion Gap 10.1 (5-15) MEQ/L BUN 29 H (7-17) mg/dL Creatinine 1.05 H (0.52-1.04) mg/dL Estimated GFR 54.4 ML/MIN Glucose 147 H (74-106) mg/dL POC Glucometer (74 to 106) mg/dL Hemoglobin A1c (4.5-6.0) % Lactic Acid 1.8 (0.4-2.0) Calcium 8.3 L (8.4-10.2) mg/dL Total Bilirubin 0.30 (0.2-1.3) mg/dL AST 55 H (14-36) U/L ALT 25 (0-35) U/L Alkaline Phosphatase 69 (38-126) U/L Troponin I (0.000-0.033) ng/mL Serum Total Protein 5.5 L (6.3-8.2) g/dL Albumin 2.9 L (3.5-5.0) g/dL Procalcitonin (0.030-0.080) ng/mL Radiology Exams: Radiology Procedures Category Date Time Status CHEST 1 VIEW (PORTABLE) Stat Exams 04/28/24 18:29 Completed HEAD WITHOUT CONTRAST [CT] Stat Exams 04/28/24 18:27 Completed Assessment/Plan (1) DKA (diabetic ketoacidosis) Current Visit: Yes Status: Acute Assessment & Plan: -CMP reviewed - Gap closed, Co2 levels now wnl, blood glucose levels now 124- continue DKA protocol -titrate off insulin drip -subq SSI/glargine -ADA diet- nurse bedside swallow eval -Patient received 2L fluid bolus - vitals stable 04/30: -DKA resolved, home insulin regimen resumed -A1c noted at 10.46 Code(s): E11.10 - TYPE 2 DIABETES MELLITUS WITH KETOACIDOSIS WITHOUT COMA (2) Pneumonia Current Visit: Yes Status: Acute Assessment & Plan: -CXR showing right infiltrate -Will start aztreonam/azithromycin - renal dosed by pharmacy -Blood/sputum cultures -procal -supplemental oxygen with spo2 goal > 92% - RA at baseline -titrate 04/30: -WBC reviewed - improved at 13.4<18 -on RA -Procal elevated at 1.8 -blood and sputum cultures pending -Continue aztreonam/azithromycin -LA now wnl at 1.8 Code(s): J18.9 - PNEUMONIA, UNSPECIFIED ORGANISM (3) Hyperkalemia Current Visit: Yes Status: Acute Assessment & Plan: -CMP reviewed, potassium levels now WNL - received lasix in ED - okay to add KCL to IVF continue to monitor -tele 04/30: -CMP reviewed, potassium WNL - resolved Code(s): E87.5 - HYPERKALEMIA (4) Acute kidney injury Current Visit: Yes Status: Acute Assessment & Plan: -monitor renal/lytes -avoid nephrotoxic agents -CMP reviewed, baseline around 1.2 improving -now at 1.68 <1.76 -Continue IVF 04/30: -CMP reviewed, creat at 0.96 - baseline 1.2 -resolved -Monitor renal/lytes closely Code(s): N17.9 - ACUTE KIDNEY FAILURE, UNSPECIFIED (5) Leukocytosis Current Visit: Yes Status: Acute Assessment & Plan: -Most likely secondary to pneumonia - see plan above -trend Code(s): D72.829 - ELEVATED WHITE BLOOD CELL COUNT, UNSPECIFIED (6) Elevated troponin Current Visit: Yes Status: Acute Assessment & Plan: in the setting of acute kidney injury and hypovolemia, unlikely to reflect true ACS. EKG NS -trend trop -No chest pain Code(s): R79.89 - OTHER SPECIFIED ABNORMAL FINDINGS OF BLOOD CHEMISTRY (7) Hypertension Current Visit: Yes Status: Acute Assessment & Plan: -stable - continue to monitor Metabolic encephalopathy -CT Head reviewed with no acute findings -secondary to pneumonia/DKA -At baseline mentation -resolved Narcolepsy -resume home med Adderall Pulmonary HTN -resume home med sildenafil Hypothyroid -Patient states she has not taken synthroid in over one year - will check TSH CODE STATUS: Full code Prophylaxis: Heparin Dispo: Place in ICU Code(s): E11.10 - TYPE 2 DIABETES MELLITUS WITH KETOACIDOSIS WITHOUT COMA (2) Pneumonia Current Visit: Yes Status: Acute Code(s): J18.9 - PNEUMONIA, UNSPECIFIED ORGANISM (3) Hyperkalemia Current Visit: Yes Status: Acute Code(s): E87.5 - HYPERKALEMIA (4) Acute kidney injury Current Visit: Yes Status: Acute Code(s): N17.9 - ACUTE KIDNEY FAILURE, UNSPECIFIED (5) Leukocytosis Current Visit: Yes Status: Acute Code(s): D72.829 - ELEVATED WHITE BLOOD CELL COUNT, UNSPECIFIED (6) Elevated troponin Current Visit: Yes Status: Acute Code(s): R79.89 - OTHER SPECIFIED ABNORMAL FINDINGS OF BLOOD CHEMISTRY (7) Hypertension Current Visit: Yes Status: Chronic Code(s): I10 - ESSENTIAL (PRIMARY) HYPERTENSION (8) Narcolepsy Current Visit: Yes Status: Chronic Code(s): G47.419 - NARCOLEPSY WITHOUT CATAPLEXY (9) Pulmonary hypertension Current Visit: Yes Status: Chronic Code(s): I27.20 - PULMONARY HYPERTENSION, UNSPECIFIED (10) Hypothyroid Current Visit: Yes Status: Acute Code(s): E03.9 - HYPOTHYROIDISM, UNSPECIFIED (11) Metabolic encephalopathy Current Visit: Yes Status: Acute Code(s): G93.41 - METABOLIC ENCEPHALOPATHY
[2024-04-30 07:21] LABS: ANION GAP 6.6 MEQ/L (5-15); Calcium 8.4 mg/dL (8.4-10.2); Creatinine 1 0.96 mg/dL (0.52-1.04); EST GLOMERULAR FILTRATION RATE 60.6 ML/MIN; Potassium 4.1 mmol/L (3.5-5.1)
[2024-04-30] MEDS ORDERED: MEDICATION INTERVENTION MC SCH (07:30)
[2024-04-30] MEDS: Lantus Insulin SQ SCH (07:42)
[2024-04-30] MEDS ORDERED: NON-FORMULARY ITEM (Insulin Aspart** [Novolog Insulin**] 1 UNIT Unit) SQ SCH (08:00)
[2024-04-30] MEDS: HUMALOG SQ SCH ×2 (08:19→17:34)
[2024-04-30] MEDS: THERAGRAN MULTIVITAMIN PO SCH (09:37)
[2024-04-30] MEDS: PATIENT OWN MEDICATION PO SCH ×2 (09:49)
[2024-04-30] MEDS ORDERED: [UNRECOGNIZED DRUG - OTHER] PO SCH (10:00)
[2024-04-30] MEDS ORDERED: MULTIVITAMIN WITH MINERALS PO SCH (10:00)
[2024-04-30] MEDS ORDERED: LIPITOR 40MG PO SCH (10:00)
[2024-04-30] MEDS ORDERED: NON-FORMULARY ITEM (Dextroamphetamine/Amphetamine [Dextroamp-Amphetamin 30 Mg Tab] 30 MG T PO SCH (10:00)
[2024-04-30] MEDS: Compazine 10 MG/2 ML IV PRN (11:12)
[2024-04-30] MEDS: HUMALOG SQ PRN (19:42)
[2024-05-01 04:35] LABS: Absolute Neutrophil Ct (ANC) 4.17 x10^3/uL (1.56-6.13); BASOPHIL % 0.4 % (0.1-1.2); Basophil (Absolute #) 0.03 x10^3/uL (0.01-0.08); Eosinophil % 4.7 % (0.7-5.8); Eosinophil (Absolute #) 0.34 x10^3/uL (0.04-0.36); Hematocrit 31.3 % (34.1-44.9); Hemoglobin 10.4 g/dL (11.2-15.7); IMMATURE GRAN # 0.02 x10^3u/L (0.001-0.031); IMMATURE GRAN % 0.3 % (0.001-0.429); Lymphocyte (Absolute #) 1.98 x10^3/uL (1.18-3.74); Lymphocytes % 27.2 % (19.3-51.7); Mean Cell Volume 88.2 fL (79.4-94.8); Mean Corpuscular Hemoglobin 29.3 pg (25.6-32.2); Mean Corpuscular Hgb Concent. 33.2 g/dL (32.2-35.5); Mean Platelet Volume 10.3 fL (9.4-12.3); Monocyte (Absolute #) 0.74 x10^3/uL (0.24-0.86); Monocytes % 10.2 % (4.7-12.5); Neutrophil % 57.2 % (34.0-71.1); Platelet Count 186 x10^3/uL (182-369); Red Blood Count 3.55 x10^6/uL (3.93-5.22); Red Cell Distribution Width 13.3 % (11.7-14.4); White Blood Count 7.3 x10^3/uL (3.98-10.04)
[2024-05-01 04:46] LABS: ALBUMIN 2.8 g/dL (3.5-5.0); ANION GAP 6.6 MEQ/L (5-15); BILIRUBIN,TOTAL 0.5 mg/dL (0.2-1.3); Calcium 8.7 mg/dL (8.4-10.2); Creatinine 1 0.79 mg/dL (0.52-1.04); EST GLOMERULAR FILTRATION RATE 76.5 ML/MIN; Potassium 4.2 mmol/L (3.5-5.1); Total Protein 5.5 g/dL (6.3-8.2)
--- NOTE | 2024-05-01 10:40 | PCM.DS ---
Discharge Summary Date of Admission: 04/28/24 22:19 Date of Discharge: 05/01/24 Admitting Physician: GONSALO RÍOS MD Primary Care Provider: JOSÉ WILLIS DO Allergies Allergies adhesive Allergy (Verified 04/28/24 16:41) Penicillins Allergy (Verified 04/28/24 16:41) Hives Sulfa (Sulfonamide Antibiotics) Allergy (Verified 04/28/24 16:41) Rash sulfamethoxazole [From Bactrim] Allergy (Verified 04/28/24 16:41) Hives scopolamine Adverse Reaction (Verified 04/28/24 16:41) confusion Hospital Summary - Hospital Course Hospital Course: HPI: is a 79 year old female with history of type 2 diabetes, pulmonary HTN, HLD, hypothyroid, hypertension, narcolepsy, GERD, and recent C-spine fracture, admitted 04/28/24 with DKA and pneumonia.Note, history is obtained from chart, as patient is severely lethargic and unable to answer questions. Per ED physician, patient presented with a few days of progressive vomiting, and lethargy. She had a C-spine fracture a few weeks ago, and remains in a c-collar. On arrival, she was found to be in DKA. In the ED, she was initially given 1 L normal saline, but also given Lasix and calcium for hyperkalemia. Upon discussion with oncoming evening ED provider, patient was asked to be given another liter of fluid and started on insulin drip per DKA protocol. Unable to obtain any further history from patient secondary to mental status. CXR showing new right suprahilar infiltrate versus atelectasis. CT head with no acute findings. 04/29/24: Met with patient and brother at bedside. Patient still with confusion. Patient A&O to self/place. Patient/family unable to provide history or home medication information. Patient did state that her CGM was not functioning properly at home. WBC worse today at 18. CXR showing right suprahilar infiltrate. Will start aztreonam and azithromycin due to allergy profile. Blood and sputum cultures pending. Denies fever,cough, cp, abdominal pain, SMITH, dizziness, N/V/D. 04/30/24: Met with patient and daughter at bedside. Patient much improved overnight. Now at baseline mentation A&O x 4. Endorses mild dyspnea, cough, and some nausea/low abdominal pain this morning after breakfast. DKA has resolved. BIBI resolved. WBC improving now at 13.4<18. Home insulin regimen resumed. Denies fever,cp, SMITH, dizziness, or V/D. 05/01/24: Patient with no complaints this morning. Mentation at baseline. Blood glucose levels stabilizing with the resumption of home insulin. CGM has been calibrated and appears to be now functioning properly. Has home insulin and diabetic supplies. Patient medically stable for discharge today. Will send home on Levaquin. 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 Blood and urine cultures with NGTD. Sputum cult pending - will follow. Discharge Note New Diagnosis: DKA/Pneumonia New Medications: Levaquin Follow Up: PCP/endocrinology Latest Assessment & Plan (1) DKA (diabetic ketoacidosis) Current Visit: Yes Status: Acute Assessment & Plan: -CMP reviewed - Gap closed, Co2 levels now wnl, blood glucose levels now 124- continue DKA protocol -titrate off insulin drip -subq SSI/glargine -ADA diet- nurse bedside swallow eval -Patient received 2L fluid bolus - vitals stable 04/30: -DKA resolved, home insulin regimen resumed -A1c noted at 10.46 05/01: -blood glucose levels improving -Advised follow up with endocrinology -Dexcom callibrated and functioning properly - has home insulin and supplies Code(s): E11.10 - TYPE 2 DIABETES MELLITUS WITH KETOACIDOSIS WITHOUT COMA (2) Pneumonia Current Visit: Yes Status: Acute Assessment & Plan: -CXR showing right infiltrate -Will start aztreonam/azithromycin - renal dosed by pharmacy -Blood/sputum cultures -procal -supplemental oxygen with spo2 goal > 92% - RA at baseline -titrate 04/30: -WBC reviewed - improved at 13.4<18 -on RA -Procal elevated at 1.8 -blood and sputum cultures pending -Continue aztreonam/azithromycin -LA now wnl at 1.8 05/01: -WBC reviewed and now wnl at 7.3 -completed course of azithromycin -Discharge home on levaquin Code(s): J18.9 - PNEUMONIA, UNSPECIFIED ORGANISM (3) Hyperkalemia Current Visit: Yes Status: Acute Assessment & Plan: -CMP reviewed, potassium levels now WNL - received lasix in ED - okay to add KCL to IVF continue to monitor -tele 04/30: -CMP reviewed, potassium WNL - resolved Code(s): E87.5 - HYPERKALEMIA (4) Acute kidney injury Current Visit: Yes Status: Acute Assessment & Plan: -monitor renal/lytes -avoid nephrotoxic agents -CMP reviewed, baseline around 1.2 improving -now at 1.68 <1.76 -Continue IVF 04/30: -CMP reviewed, creat at 0.96 - baseline 1.2 -resolved -Monitor renal/lytes closely Code(s): N17.9 - ACUTE KIDNEY FAILURE, UNSPECIFIED (5) Leukocytosis Current Visit: Yes Status: Acute Assessment & Plan: -Most likely secondary to pneumonia - see plan above -trend 05/01: -resolved Code(s): D72.829 - ELEVATED WHITE BLOOD CELL COUNT, UNSPECIFIED (6) Elevated troponin Current Visit: Yes Status: Acute Assessment & Plan: in the setting of acute kidney injury and hypovolemia, unlikely to reflect true ACS. EKG NS -trend trop -No chest pain Code(s): R79.89 - OTHER SPECIFIED ABNORMAL FINDINGS OF BLOOD CHEMISTRY (7) Hypertension Current Visit: Yes Status: Acute Assessment & Plan: -stable - continue to monitor Metabolic encephalopathy -CT Head reviewed with no acute findings -secondary to pneumonia/DKA -At baseline mentation -resolved Narcolepsy -resume home med Adderall Pulmonary HTN -resume home med sildenafil Hypothyroid -Patient states she has not taken synthroid in over one year - will check TSH 05/01: -TSH wnl I spent 35 minutes [id number] with the patient on the day of discharge performing discharge exam, discussing hospital stay and discharge instructions with patient and caregivers, preparation of discharge records, prescriptions & referral forms and addressing any questions/concerns the patient had as documented above. - Vitals & Intake/Output Vital Signs: Vital Signs Temperature 97.5 F 05/01/24 03:24 Pulse Rate 75 05/01/24 09:36 Respiratory Rate 15 05/01/24 09:36 Blood Pressure 153/63 05/01/24 09:36 O2 Sat by Pulse Oximetry 97 05/01/24 09:36 Intake & Output: Intake & Output 04/28/24 04/29/24 04/30/24 05/01/24 11:59 11:59 11:59 11:59 Intake Total 0582 9177 1681 Output Total 1552 9106 0513 Balance 227 4663 -20 Weight 83.4 kg 88.9 kg 88.7 kg - Lab Result Diagrams: 05/01/24 04:15 05/01/24 04:15 Lab Results-Last 24 Hrs: Lab Results-Last 24 Hours 04/30/24 04/30/24 04/30/24 Range/Units 07:06 11:01 12:09 WBC (3.98-10.04) x10^3/uL RBC (3.93-5.22) x10^6/uL Hgb (11.2-15.7) g/dL Hct (34.1-44.9) % MCV (79.4-94.8) fL MCH (25.6-32.2) pg MCHC (32.2-35.5) g/dL RDW (11.7-14.4) % Plt Count (182-369) x10^3/uL MPV (9.4-12.3) fL Gran % (34.0-71.1) % Immature Gran % (Auto) (0.001-0.429) % Nucleat RBC Rel Count (0.00-0.2) % Eos # (Auto) (0.04-0.36) x10^3/uL Immature Gran # (Auto) (0.001-0.031) x10^3u/L Absolute Lymphs (auto) (1.18-3.74) x10^3/uL Absolute Monos (auto) (0.24-0.86) x10^3/uL Absolute Nucleated RBC (0.00-0.012) x10^3u/L Lymphocytes % (19.3-51.7) % Monocytes % (4.7-12.5) % Eosinophils % (0.7-5.8) % Basophils % (0.1-1.2) % Absolute Granulocytes (1.56-6.13) x10^3/uL Basophils # (0.01-0.08) x10^3/uL Sodium (135-145) mmol/L Potassium (3.5-5.1) mmol/L Chloride (98-107) mmol/L Carbon Dioxide (22-30) mmol/L Anion Gap (5-15) MEQ/L BUN (7-17) mg/dL Creatinine (0.52-1.04) mg/dL Estimated GFR ML/MIN Glucose (74-106) mg/dL POC Glucometer 161 H 126 H (74 to 106) mg/dL Calcium (8.4-10.2) mg/dL Total Bilirubin (0.2-1.3) mg/dL AST (14-36) U/L ALT (0-35) U/L Alkaline Phosphatase (38-126) U/L Serum Total Protein (6.3-8.2) g/dL Albumin (3.5-5.0) g/dL TSH 3rd Generation 4.510 (0.470-4.680) mIU/L 04/30/24 04/30/24 04/30/24 Range/Units 12:49 16:36 19:22 WBC (3.98-10.04) x10^3/uL RBC (3.93-5.22) x10^6/uL Hgb (11.2-15.7) g/dL Hct (34.1-44.9) % MCV (79.4-94.8) fL MCH (25.6-32.2) pg MCHC (32.2-35.5) g/dL RDW (11.7-14.4) % Plt Count (182-369) x10^3/uL MPV (9.4-12.3) fL Gran % (34.0-71.1) % Immature Gran % (Auto) (0.001-0.429) % Nucleat RBC Rel Count (0.00-0.2) % Eos # (Auto) (0.04-0.36) x10^3/uL Immature Gran # (Auto) (0.001-0.031) x10^3u/L Absolute Lymphs (auto) (1.18-3.74) x10^3/uL Absolute Monos (auto) (0.24-0.86) x10^3/uL Absolute Nucleated RBC (0.00-0.012) x10^3u/L Lymphocytes % (19.3-51.7) % Monocytes % (4.7-12.5) % Eosinophils % (0.7-5.8) % Basophils % (0.1-1.2) % Absolute Granulocytes (1.56-6.13) x10^3/uL Basophils # (0.01-0.08) x10^3/uL Sodium (135-145) mmol/L Potassium (3.5-5.1) mmol/L Chloride (98-107) mmol/L Carbon Dioxide (22-30) mmol/L Anion Gap (5-15) MEQ/L BUN (7-17) mg/dL Creatinine (0.52-1.04) mg/dL Estimated GFR ML/MIN Glucose (74-106) mg/dL POC Glucometer 132 H 246 H 269 H (74 to 106) mg/dL Calcium (8.4-10.2) mg/dL Total Bilirubin (0.2-1.3) mg/dL AST (14-36) U/L ALT (0-35) U/L Alkaline Phosphatase (38-126) U/L Serum Total Protein (6.3-8.2) g/dL Albumin (3.5-5.0) g/dL TSH 3rd Generation (0.470-4.680) mIU/L 04/30/24 05/01/24 05/01/24 Range/Units 23:08 04:15 04:15 WBC 7.3 (3.98-10.04) x10^3/uL RBC 3.55 L (3.93-5.22) x10^6/uL Hgb 10.4 L (11.2-15.7) g/dL Hct 31.3 L (34.1-44.9) % MCV 88.2 (79.4-94.8) fL MCH 29.3 (25.6-32.2) pg MCHC 33.2 (32.2-35.5) g/dL RDW 13.3 (11.7-14.4) % Plt Count 186 (182-369) x10^3/uL MPV 10.3 (9.4-12.3) fL Gran % 57.2 (34.0-71.1) % Immature Gran % (Auto) 0.3 (0.001-0.429) % Nucleat RBC Rel Count 0.0 (0.00-0.2) % Eos # (Auto) 0.34 (0.04-0.36) x10^3/uL Immature Gran # (Auto) 0.02 (0.001-0.031) x10^3u/L Absolute Lymphs (auto) 1.98 (1.18-3.74) x10^3/uL Absolute Monos (auto) 0.74 (0.24-0.86) x10^3/uL Absolute Nucleated RBC 0.00 (0.00-0.012) x10^3u/L Lymphocytes % 27.2 (19.3-51.7) % Monocytes % 10.2 (4.7-12.5) % Eosinophils % 4.7 (0.7-5.8) % Basophils % 0.4 (0.1-1.2) % Absolute Granulocytes 4.17 (1.56-6.13) x10^3/uL Basophils # 0.03 (0.01-0.08) x10^3/uL Sodium 139 (135-145) mmol/L Potassium 4.2 (3.5-5.1) mmol/L Chloride 109 H (98-107) mmol/L Carbon Dioxide 28 (22-30) mmol/L Anion Gap 6.6 (5-15) MEQ/L BUN 16 (7-17) mg/dL Creatinine 0.79 (0.52-1.04) mg/dL Estimated GFR 76.5 ML/MIN Glucose 114 H (74-106) mg/dL POC Glucometer 113 H (74 to 106) mg/dL Calcium 8.7 (8.4-10.2) mg/dL Total Bilirubin 0.50 (0.2-1.3) mg/dL AST 53 H (14-36) U/L ALT 27 (0-35) U/L Alkaline Phosphatase 83 (38-126) U/L Serum Total Protein 5.5 L (6.3-8.2) g/dL Albumin 2.8 L (3.5-5.0) g/dL TSH 3rd Generation (0.470-4.680) mIU/L 05/01/24 Range/Units 09:40 WBC (3.98-10.04) x10^3/uL RBC (3.93-5.22) x10^6/uL Hgb (11.2-15.7) g/dL Hct (34.1-44.9) % MCV (79.4-94.8) fL MCH (25.6-32.2) pg MCHC (32.2-35.5) g/dL RDW (11.7-14.4) % Plt Count (182-369) x10^3/uL MPV (9.4-12.3) fL Gran % (34.0-71.1) % Immature Gran % (Auto) (0.001-0.429) % Nucleat RBC Rel Count (0.00-0.2) % Eos # (Auto) (0.04-0.36) x10^3/uL Immature Gran # (Auto) (0.001-0.031) x10^3u/L Absolute Lymphs (auto) (1.18-3.74) x10^3/uL Absolute Monos (auto) (0.24-0.86) x10^3/uL Absolute Nucleated RBC (0.00-0.012) x10^3u/L Lymphocytes % (19.3-51.7) % Monocytes % (4.7-12.5) % Eosinophils % (0.7-5.8) % Basophils % (0.1-1.2) % Absolute Granulocytes (1.56-6.13) x10^3/uL Basophils # (0.01-0.08) x10^3/uL Sodium (135-145) mmol/L Potassium (3.5-5.1) mmol/L Chloride (98-107) mmol/L Carbon Dioxide (22-30) mmol/L Anion Gap (5-15) MEQ/L BUN (7-17) mg/dL Creatinine (0.52-1.04) mg/dL Estimated GFR ML/MIN Glucose (74-106) mg/dL POC Glucometer 265 H (74 to 106) mg/dL Calcium (8.4-10.2) mg/dL Total Bilirubin (0.2-1.3) mg/dL AST (14-36) U/L ALT (0-35) U/L Alkaline Phosphatase (38-126) U/L Serum Total Protein (6.3-8.2) g/dL Albumin (3.5-5.0) g/dL TSH 3rd Generation (0.470-4.680) mIU/L Micro Results-Entire Visit: Microbiology 04/29/24 09:59 Blood Culture - Preliminary Blood 04/29/24 09:50 Blood Culture - Preliminary Blood 04/28/24 18:00 Urine Culture - Final Urine, Catheterized NO GROWTH Accuchecks Date 05/01/24 Date 04/30/24 Date 04/30/24 Date 04/30/24 Date 04/30/24 Time 16:39 Time 12:50 Time 12:00 Time 11:00 - Procedures and Test Procedures and Tests throughout Hospitalization: Therapy Orders & Screens 04/29/24 10:42 EKG ROUTINE Comment: Diagnosis: DKA, lethargy 04/29/24 15:28 Oxygen Nasal Cannula 2 lpm Comment: Diagnosis: DKA, lethargy 05/01/24 07:35 PT Eval & Treat (MD Order) ONCE Reason for Eval:: weakness Diagnosis: DKA, lethargy Discharge Exam General Appearance: no apparent distress Neurologic Exam: alert, oriented x 3, cooperative Eye Exam: PERRL Ears, Nose, Throat Exam: normal ENT inspection Neck Exam: normal inspection Respiratory Exam: normal breath sounds, lungs clear Cardiovascular Exam: regular rate/rhythm, normal heart sounds Gastrointestinal/Abdomen Exam: soft, normal bowel sounds Pelvic Exam: deferred Rectal Exam: deferred Back Exam: normal inspection Extremity Exam: normal inspection Skin Exam: normal color Final Diagnosis/Problem List - Final Discharge Diagnosis/Problem (1) DKA (diabetic ketoacidosis) Current Visit: Yes Status: Resolved Code(s): E11.10 - TYPE 2 DIABETES MELLITUS WITH KETOACIDOSIS WITHOUT COMA (2) Pneumonia Current Visit: Yes Status: Acute Code(s): J18.9 - PNEUMONIA, UNSPECIFIED ORGANISM (3) Hyperkalemia Current Visit: Yes Status: Resolved Code(s): E87.5 - HYPERKALEMIA (4) Acute kidney injury Current Visit: Yes Status: Resolved Code(s): N17.9 - ACUTE KIDNEY FAILURE, UNSPECIFIED (5) Leukocytosis Current Visit: Yes Status: Resolved Code(s): D72.829 - ELEVATED WHITE BLOOD CELL COUNT, UNSPECIFIED (6) Elevated troponin Current Visit: Yes Status: Acute Code(s): R79.89 - OTHER SPECIFIED ABNORMAL FINDINGS OF BLOOD CHEMISTRY (7) Hypertension Current Visit: Yes Status: Chronic Code(s): I10 - ESSENTIAL (PRIMARY) HYPERTENSION (8) Narcolepsy Current Visit: Yes Status: Chronic Code(s): G47.419 - NARCOLEPSY WITHOUT CATAPLEXY (9) Pulmonary hypertension Current Visit: Yes Status: Chronic Code(s): I27.20 - PULMONARY HYPERTENSION, UNSPECIFIED (10) Hypothyroid Current Visit: Yes Status: Chronic Code(s): E03.9 - HYPOTHYROIDISM, UNSPECIFIED (11) Metabolic encephalopathy Current Visit: Yes Status: Resolved Code(s): G93.41 - METABOLIC ENCEPHALOPATHY - Discharge Disposition: Home, Self-Care Condition: Stable Prescriptions: New levoFLOXacin [Levofloxacin] 750 mg PO DAILY 7 Days #7 tablet Continue SUMAtriptan succinate [Imitrex] 100 mg PO DAILY PRN PRN PRN Reason: MIGRAINES Paroxetine HCl 20 mg [Paxil 20 MG] 40 mg PO DAILY Ergocalciferol (Vitamin D2) [Vitamin D2] 1.25 mg PO Q7D Alendronate Sodium 70 mg [Fosamax 70 MG] 70 mg PO WEEKLY Sildenafil Citrate [Viagra] 25 mg PO TID Gabapentin 100 mg PO TID Furosemide 40 mg [Lasix 40 MG] 40 mg PO BID Famotidine [Pepcid] 40 mg PO HS Multivitamin with Minerals [Daily Vitamin Formula-Minerals] 1 tab PO DAILY Insulin Aspart [NovoLOG Insulin] 18 unit SQ 0800,1200 Atorvastatin Calcium [Lipitor] 40 mg PO DAILY Insulin Glargine,Hum.rec.anlog [Basaglar Kwikpen U-100] 34 unit SQ HS Metoprolol Tartrate 50 mg [Lopressor 50 MG] 50 mg PO BID Potassium Chloride 20 meq PO HS Clopidogrel Bisulfate [PLAVIX Tablet] 75 mg PO DAILY Dextroamphetamine/Amphetamine [Dextroamp-Amphetamin 30 mg Tab] 30 mg PO DAILY Insulin Aspart [NovoLOG Insulin] 24 unit SQ 1700 Naloxone HCl [Narcan] 4 mg NS DAILY PRN PRN 1 Days #1 blist PRN Reason: Respiratory Depression Additional Instructions: [facility] HAS BEEN SENT NEW ORDERS FOR YOU. THEY WILL CALL YOU TO ARRANGE A TIME TO COME SEE YOU. IF YOU NEED ANYTHING, YOU CAN CALL THEM AT [phone]. Follow up with: JOSÉ WILLIS DO [Primary Care Provider] - 05/08/24 11:00 am
[2024-05-01 13:52] VITALS: BP 147/55; PULSE 85; RESP 22; TEMP 98.1; O2SAT 98
== END 2024-05-01 15:15 | disposition home or self-care (01) | DRG 637 ==
LOC: ED 16:16 → ICU 22:19
PROVIDERS: ADMIT Internal Medicine; ATTEND Internal Medicine
DX: E11.10 Type 2 diabetes mellitus with ketoacidosis without coma (principal); G93.41 Metabolic encephalopathy; J18.9 Pneumonia, unspecified organism; N17.9 Acute kidney failure, unspecified; E87.5 Hyperkalemia; D72.829 Elevated white blood cell count, unspecified; R79.89 Other specified abnormal findings of blood chemistry; I10 Essential (primary) hypertension; G47.419 Narcolepsy without cataplexy; E03.9 Hypothyroidism, unspecified; I27.20 Pulmonary hypertension, unspecified; Z79.899 Other long term (current) drug therapy; Z79.01 Long term (current) use of anticoagulants
CPT/HCPCS: 0241U; 36415; 36600; 51702; 70450; 71045; 80048; 80053; 81001; 82140; 82375; 82803; 82805; 82947; 83036; 83605; 83735; 84145; 84443; 84484; 85025; 85027; 86308; 87040; 87086; 93005; 93041; 94760; 96360; 96365; 96366; 96374; 96375; 97161; 99291; Q3014; 94762; 99285; J0456; J0612; J1644; J1815; J1817; J1940; J2405; A9270-GY

== ENCOUNTER 2024-05-07 15:23 | Observation (INO) | payer MEDICARE, OTHER ==
--- NOTE | 2024-05-07 16:29 | ERPHSYRPT ---
- History of Present Illness Time Seen by Provider: 05/07/24 16:08 Source: patient Exam Limitations: no limitations Patient Subjective Stated Complaint: Dizziness Triage Nursing Assessment: Patient brought back to ED per w/c and transferred to bed per self. Patient A+O X 3. Patient's skin pink, warm and dry. Patient complains of dizziness intermittently for one week. Patient was in shower and was very dizzy she called for help. Patient's daughter also states she has been hallucinating today. Patient denies pain or discomfort. Patient has swelling noted to BLE. Patent complains of sore throat and non productive cough as well. Physician History: Pt states for the past 6 hours she has had dizziness(off balance) and a cough for the past 2 weeks productive of clear phlegm. Pt states she was hospitalized at [facility] for 3 days for pneumonia and DKA with discharge 7 days ago. Pt also c/o swelling in her legs and difficulty swallowing for the past 4 days. Pt states she fractured her T4 about 2 months ago and is in a back brace. Allergies/Adverse Reactions: adhesive Allergy (Verified 05/07/24 15:45) Penicillins Allergy (Verified 05/07/24 15:45) Hives Sulfa (Sulfonamide Antibiotics) Allergy (Verified 05/07/24 15:45) Rash sulfamethoxazole [From Bactrim] Allergy (Verified 05/07/24 15:45) Hives scopolamine Adverse Reaction (Verified 05/07/24 15:45) confusion Home Medications: SUMAtriptan succinate [Imitrex] 100 mg PO DAILY PRN PRN 12/19/13 [History] Alendronate Sodium 70 mg [Fosamax 70 MG] 70 mg PO WEEKLY 02/11/18 [History] Ergocalciferol (Vitamin D2) [Vitamin D2] 1.25 mg PO Q7D 02/11/18 [History] Paroxetine HCl 20 mg [Paxil 20 MG] 40 mg PO DAILY 02/11/18 [History] Famotidine [Pepcid] 40 mg PO HS 09/19/21 [History] Furosemide 40 mg [Lasix 40 MG] 40 mg PO BID 09/19/21 [History] Gabapentin 100 mg PO TID 09/19/21 [History] Sildenafil Citrate [Viagra] 25 mg PO TID 09/19/21 [History] Atorvastatin Calcium [Lipitor] 40 mg PO DAILY 02/28/24 [History] Clopidogrel Bisulfate [PLAVIX Tablet] 75 mg PO DAILY 02/28/24 [History] Dextroamphetamine/Amphetamine [Dextroamp-Amphetamin 30 mg Tab] 30 mg PO DAILY 02/28/24 [History] Insulin Aspart [NovoLOG Insulin] 18 unit SQ 0800,1200 02/28/24 [History] Insulin Aspart [NovoLOG Insulin] 24 unit SQ 1700 02/28/24 [History] Insulin Glargine,Hum.rec.anlog [Basaglar Kwikpen U-100] 34 unit SQ HS 02/28/24 [History] Metoprolol Tartrate 50 mg [Lopressor 50 MG] 50 mg PO BID 02/28/24 [History] Multivitamin with Minerals [Daily Vitamin Formula-Minerals] 1 tab PO DAILY 02/28/24 [History] Potassium Chloride 20 meq PO HS 02/28/24 [History] Hx Tetanus, Diphtheria Vaccination/Date Given: Yes Hx Influenza Vaccination/Date Given: Yes Hx Pneumococcal Vaccination/Date Given: No Immunizations Up to Date: Yes Travel Risk - International Travel Have you traveled outside of the country in past 3 weeks: No - Emerging Infectious Disease Are you exhibiting symptoms associated with any current EIDs: No Symptoms: Vomitting - Review of Systems Constitutional: No Fever Ears, Nose, & Throat: Other (Difficulty swallowing for the past 4 days.) Respiratory: Cough Cardiac: No Chest Pain Abdominal/Gastrointestinal: No Abdominal Pain Musculoskeletal: Other (bilateral leg swelling) Neurological: Dizziness - Past Medical History Pertinent Past Medical History: Yes Neurological History: Migraines ENT History: Cataracts Cardiac History: High Cholesterol, Hypertension Respiratory History: Other Endocrine Medical History: Diabetes Type I, Hypothyroidism Musculoskeletal History: Arthritis GI Medical History: No Pertinent History History: No Pertinent History Psycho-Social History: Depression Female Reproductive Disorders: No Pertinent History Other Medical History: Pulmonary HTN. T-4 fracture from fall - Past Surgical History Past Surgical History: Yes Neuro Surgical History: No Pertinent History Cardiac: No Pertinent History Respiratory: No Pertinent History Gastrointestinal: No Pertinent History Genitourinary: No Pertinent History Musculoskeletal: No Pertinent History Female Surgical History: Tubal Ligation Other Surgical History: BUNIONS REMOVED CYST REMOVED FROM BACK Significant Family History: other (Unable to be obtained due to patient's mental status) - Social History Smoking Status: Never smoker Exposure to second hand smoke: No Drug Use: none Patient Lives Alone: No - Social Determinants of Health Will the patient participate in the screening: Yes Do you worry about a steady place to live?: No Do you have any problems with any of the following?: No known problems In the past 12 months,have you had to go without utilities?: No Transportation Issues: No Has anyone in your support network made you feel unsafe?: No Have you or anyone in your house had to go without enough: No - Nursing Vital Signs Nursing Vital Signs: Initial Vital Signs Temperature 99.7 F 05/07/24 15:46 Pulse Rate 92 H 05/07/24 15:46 Respiratory Rate 18 05/07/24 15:46 Blood Pressure 137/65 05/07/24 15:46 O2 Sat by Pulse Oximetry 96 05/07/24 15:46 Pain Scale Pain Intensity 0 - Physical Exam General Appearance: alert Eye Exam: eyes nml inspection Ears, Nose, Throat Exam: TMs normal, pharyngeal erythema (mild) Neck Exam: normal inspection Respiratory Exam: lungs clear Cardiovascular Exam: normal heart sounds Gastrointestinal/Abdomen Exam: normal bowel sounds Back Exam: other (back brace in place) Extremity Exam: swelling (2+ edema of legs/feet) Neurologic Exam: alert, cooperative Skin Exam: warm, dry SpO2 Interpretation: normal SpO2: 96 O2 Delivery: Room Air - Course Nursing assessment & vital signs reviewed: Yes EKG Interpreted by Me: RATE (83), Sinus Rhythm, NORMAL AXIS, Other (QTc = 476) - Radiology Exams Chest X-ray Interpretation: Teleradiologist Report (Prominent bilateral bronchovascular markings, likely congestion. Bilateral lower lung zone faint opacities, possibly early inflammatory changes. cardiomegaly.) - CT Exams Head CT Interpretation: Tele-radiologist Report (No evidence oif acute infarct or hemorrhage. 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 Bilateral maxillary sinusitis.) Ordered Tests: Active Orders 24 hr Category Date Time Status History Faculty Member STAT Care 05/07/24 16:24 Active EKG-ER Only STAT Care 05/07/24 16:23 Active IV Insertion STAT Care 05/07/24 16:23 Active Telemetry q4h Care 05/07/24 19:06 Active CHEST 2 VIEWS (PA AND LAT) Stat Exams 05/07/24 16:23 Completed HEAD WITHOUT CONTRAST [CT] Stat Exams 05/07/24 16:25 Completed AMYLASE Stat Lab 05/07/24 17:10 Completed CBC W DIFF Stat Lab 05/07/24 17:10 Completed CMP Stat Lab 05/07/24 17:10 Completed CULTURE,URINE Stat Lab 05/07/24 17:55 Received D-DIMER QUANTITATIVE Stat Lab 05/07/24 17:10 Completed LIPASE Stat Lab 05/07/24 17:10 Completed MAGNESIUM Stat Lab 05/07/24 17:10 Completed TROPONIN Q4H Lab 05/07/24 17:10 Completed TROPONIN Q4H Lab 05/07/24 20:30 Ordered TROPONIN Q4H Lab 05/08/24 00:30 Ordered UA W/RFX UR CULTURE Stat Lab 05/07/24 17:55 Completed Medication Summary Generic Name Dose Route Start Last Admin Trade Name Freq PRN Reason Stop Dose Admin Potassium Chloride 20 meq in 100 mls @ 50 mls/hr 05/07/24 19:06 05/07/24 19:36 Potassium Chloride 20 Meq In Water 100ml IV 05/07/24 21:05 50 mls/hr STAT ONE Administration Sodium Chloride 500 mls @ 50 mls/hr 05/07/24 19:30 05/07/24 19:34 Sodium Chloride 0.9% 500 Ml IV 06/06/24 19:29 50 mls/hr .Q10H OLGA LIDIA Administration Discontinued Medications Generic Name Dose Route Start Last Admin Trade Name Freq PRN Reason Stop Dose Admin Potassium Chloride Confirm 05/07/24 19:25 Potassium Chloride 20 Meq In Water 100ml Administered 05/07/24 19:26 Dose 100 mls @ ud IV .STK-MED ONE Lab/Rad Data: Laboratory Result Diagrams 05/07/24 17:10 05/07/24 17:10 Laboratory Results 05/07/24 05/07/24 05/07/24 Range/Units 17:55 17:10 17:10 WBC (3.98-10.04) x10^3/uL RBC (3.93-5.22) x10^6/uL Hgb (11.2-15.7) g/dL Hct (34.1-44.9) % MCV (79.4-94.8) fL MCH (25.6-32.2) pg MCHC (32.2-35.5) g/dL RDW (11.7-14.4) % Plt Count (182-369) x10^3/uL MPV (9.4-12.3) fL Gran % (34.0-71.1) % Immature Gran % (Auto) (0.001-0.429) % Nucleat RBC Rel Count (0.00-0.2) % Eos # (Auto) (0.04-0.36) x10^3/uL Immature Gran # (Auto) (0.001-0.031) x10^3u/L Absolute Lymphs (auto) (1.18-3.74) x10^3/uL Absolute Monos (auto) (0.24-0.86) x10^3/uL Absolute Nucleated RBC (0.00-0.012) x10^3u/L Lymphocytes % (19.3-51.7) % Monocytes % (4.7-12.5) % Eosinophils % (0.7-5.8) % Basophils % (0.1-1.2) % Absolute Granulocytes (1.56-6.13) x10^3/uL Basophils # (0.01-0.08) x10^3/uL D-Dimer (0.0-0.50) mg/L Sodium (135-145) mmol/L Potassium (3.5-5.1) mmol/L Chloride (98-107) mmol/L Carbon Dioxide (22-30) mmol/L Anion Gap (5-15) MEQ/L BUN (7-17) mg/dL Creatinine (0.52-1.04) mg/dL Estimated GFR ML/MIN Glucose (74-106) mg/dL Calcium (8.4-10.2) mg/dL Magnesium (1.6-2.3) mg/dL Total Bilirubin (0.2-1.3) mg/dL AST (14-36) U/L ALT (0-35) U/L Alkaline Phosphatase (38-126) U/L Troponin I 0.019 (0.000-0.033) ng/mL Serum Total Protein (6.3-8.2) g/dL Albumin (3.5-5.0) g/dL Amylase 58 (30-110) U/L Lipase 313 H (23-300) U/L Urine Color Yellow (Yellow) Urine Appearance Clear (Clear) Urine pH 5.0 (4.6-8.0) Ur Specific [place] 1.015 (1.005-1.030) Urine Protein Trace A (Negative) Urine Glucose (UA) 100 A (Negative) mg/dL Urine Ketones Negative (Negative) Urine Blood Negative (Negative) Urine Nitrite Negative (Negative) Urine Bilirubin Negative (Negative) Urine Urobilinogen 0.2 (0.2) mg/dL Ur Leukocyte Esterase Negative (Negative) U Hyaline Cast (Auto) 6-10 A (0-2) /LPF Urine Microscopic RBC 0-2 (0-5) /HPF Urine Microscopic WBC 0-2 (0-5) /HPF Ur Epithelial Cells None Seen (None Seen) /HPF Urine Bacteria None Seen (None Seen) /HPF Urine Culture Reflexed YES (NO) Influenza Type A Ag (NEGATIVE) Influenza Type B Ag (NEGATIVE) RSV (PCR) (NEGATIVE) SARS-CoV-2 (PCR) (NEGATIVE) Group A Strep Antibody (NEGATIVE) Slides for Path Review 05/07/24 05/07/24 05/07/24 Range/Units 17:10 17:10 17:10 WBC 6.6 (3.98-10.04) x10^3/uL RBC 3.51 L (3.93-5.22) x10^6/uL Hgb 10.4 L (11.2-15.7) g/dL Hct 29.9 L (34.1-44.9) % MCV 85.2 (79.4-94.8) fL MCH 29.6 (25.6-32.2) pg MCHC 34.8 (32.2-35.5) g/dL RDW 13.2 (11.7-14.4) % Plt Count 203 (182-369) x10^3/uL MPV 9.7 (9.4-12.3) fL Gran % 52.3 (34.0-71.1) % Immature Gran % (Auto) 1.2 H (0.001-0.429) % Nucleat RBC Rel Count 0.0 (0.00-0.2) % Eos # (Auto) 0.09 (0.04-0.36) x10^3/uL Immature Gran # (Auto) 0.08 H (0.001-0.031) x10^3u/L Absolute Lymphs (auto) 1.17 L (1.18-3.74) x10^3/uL Absolute Monos (auto) 1.75 H (0.24-0.86) x10^3/uL Absolute Nucleated RBC 0.00 (0.00-0.012) x10^3u/L Lymphocytes % 17.8 L (19.3-51.7) % Monocytes % 26.7 H (4.7-12.5) % Eosinophils % 1.4 (0.7-5.8) % Basophils % 0.6 (0.1-1.2) % Absolute Granulocytes 3.43 (1.56-6.13) x10^3/uL Basophils # 0.04 (0.01-0.08) x10^3/uL D-Dimer 2.31 H* (0.0-0.50) mg/L Sodium 132 L (135-145) mmol/L Potassium 3.2 L (3.5-5.1) mmol/L Chloride 96 L (98-107) mmol/L Carbon Dioxide 29 (22-30) mmol/L Anion Gap 10.7 (5-15) MEQ/L BUN 24 H (7-17) mg/dL Creatinine 1.43 H (0.52-1.04) mg/dL Estimated GFR 37.5 ML/MIN Glucose 110 H (74-106) mg/dL Calcium 8.6 (8.4-10.2) mg/dL Magnesium 1.4 L (1.6-2.3) mg/dL Total Bilirubin 0.40 (0.2-1.3) mg/dL AST 44 H (14-36) U/L ALT 32 (0-35) U/L Alkaline Phosphatase 81 (38-126) U/L Troponin I (0.000-0.033) ng/mL Serum Total Protein 6.5 (6.3-8.2) g/dL Albumin 3.7 (3.5-5.0) g/dL Amylase (30-110) U/L Lipase (23-300) U/L Urine Color (Yellow) Urine Appearance (Clear) Urine pH (4.6-8.0) Ur Specific [place] (1.005-1.030) Urine Protein (Negative) Urine Glucose (UA) (Negative) mg/dL Urine Ketones (Negative) Urine Blood (Negative) Urine Nitrite (Negative) Urine Bilirubin (Negative) Urine Urobilinogen (0.2) mg/dL Ur Leukocyte Esterase (Negative) U Hyaline Cast (Auto) (0-2) /LPF Urine Microscopic RBC (0-5) /HPF Urine Microscopic WBC (0-5) /HPF Ur Epithelial Cells (None Seen) /HPF Urine Bacteria (None Seen) /HPF Urine Culture Reflexed (NO) Influenza Type A Ag (NEGATIVE) Influenza Type B Ag (NEGATIVE) RSV (PCR) (NEGATIVE) SARS-CoV-2 (PCR) (NEGATIVE) Group A Strep Antibody (NEGATIVE) Slides for Path Review YES 05/07/24 05/07/24 Range/Units 17:00 17:00 WBC (3.98-10.04) x10^3/uL RBC (3.93-5.22) x10^6/uL Hgb (11.2-15.7) g/dL Hct (34.1-44.9) % MCV (79.4-94.8) fL MCH (25.6-32.2) pg MCHC (32.2-35.5) g/dL RDW (11.7-14.4) % Plt Count (182-369) x10^3/uL MPV (9.4-12.3) fL Gran % (34.0-71.1) % Immature Gran % (Auto) (0.001-0.429) % Nucleat RBC Rel Count (0.00-0.2) % Eos # (Auto) (0.04-0.36) x10^3/uL Immature Gran # (Auto) (0.001-0.031) x10^3u/L Absolute Lymphs (auto) (1.18-3.74) x10^3/uL Absolute Monos (auto) (0.24-0.86) x10^3/uL Absolute Nucleated RBC (0.00-0.012) x10^3u/L Lymphocytes % (19.3-51.7) % Monocytes % (4.7-12.5) % Eosinophils % (0.7-5.8) % Basophils % (0.1-1.2) % Absolute Granulocytes (1.56-6.13) x10^3/uL Basophils # (0.01-0.08) x10^3/uL D-Dimer (0.0-0.50) mg/L Sodium (135-145) mmol/L Potassium (3.5-5.1) mmol/L Chloride (98-107) mmol/L Carbon Dioxide (22-30) mmol/L Anion Gap (5-15) MEQ/L BUN (7-17) mg/dL Creatinine (0.52-1.04) mg/dL Estimated GFR ML/MIN Glucose (74-106) mg/dL Calcium (8.4-10.2) mg/dL Magnesium (1.6-2.3) mg/dL Total Bilirubin (0.2-1.3) mg/dL AST (14-36) U/L ALT (0-35) U/L Alkaline Phosphatase (38-126) U/L Troponin I (0.000-0.033) ng/mL Serum Total Protein (6.3-8.2) g/dL Albumin (3.5-5.0) g/dL Amylase (30-110) U/L Lipase (23-300) U/L Urine Color (Yellow) Urine Appearance (Clear) Urine pH (4.6-8.0) Ur Specific [place] (1.005-1.030) Urine Protein (Negative) Urine Glucose (UA) (Negative) mg/dL Urine Ketones (Negative) Urine Blood (Negative) Urine Nitrite (Negative) Urine Bilirubin (Negative) Urine Urobilinogen (0.2) mg/dL Ur Leukocyte Esterase (Negative) U Hyaline Cast (Auto) (0-2) /LPF Urine Microscopic RBC (0-5) /HPF Urine Microscopic WBC (0-5) /HPF Ur Epithelial Cells (None Seen) /HPF Urine Bacteria (None Seen) /HPF Urine Culture Reflexed (NO) Influenza Type A Ag NEGATIVE (NEGATIVE) Influenza Type B Ag NEGATIVE (NEGATIVE) RSV (PCR) NEGATIVE (NEGATIVE) SARS-CoV-2 (PCR) POSITIVE A (NEGATIVE) Group A Strep Antibody NOT DETECTED (NEGATIVE) Slides for Path Review - Progress Progress: unchanged Discussed with : Stephany (Spoke with Dr. Carrillo - obs) Will see patient in: hospital (observation) Counseled pt/family regarding: lab results, diagnosis, rad results Medical Desision Making - Diagnostic Testing Diagnostic test were ordered, analyzed, and reviewed by me: Yes Radiological Interpretation: Teleradiologist Report - Departure Departure Disposition: Observation Clinical Impression: bilateral maxillary sinusitis, Dizziness, COVID-19, Hypokalemia, D-dimer, elevated, Difficulty swallowing, bilateral swelling of lower legs Condition: Stable Critical Care Time: No Referrals: JOSÉ WILLIS DO [Primary Care Provider] - Follow up/PCP as directed
[2024-05-07 17:13] LABS: Absolute Neutrophil Ct (ANC) 3.43 x10^3/uL (1.56-6.13); BASOPHIL % 0.6 % (0.1-1.2); Basophil (Absolute #) 0.04 x10^3/uL (0.01-0.08); Eosinophil % 1.4 % (0.7-5.8); Eosinophil (Absolute #) 0.09 x10^3/uL (0.04-0.36); Hematocrit 29.9 % (34.1-44.9); Hemoglobin 10.4 g/dL (11.2-15.7); IMMATURE GRAN # 0.08 x10^3u/L (0.001-0.031); IMMATURE GRAN % 1.2 % (0.001-0.429); Lymphocyte (Absolute #) 1.17 x10^3/uL (1.18-3.74); Lymphocytes % 17.8 % (19.3-51.7); Mean Cell Volume 85.2 fL (79.4-94.8); Mean Corpuscular Hemoglobin 29.6 pg (25.6-32.2); Mean Corpuscular Hgb Concent. 34.8 g/dL (32.2-35.5); Mean Platelet Volume 9.7 fL (9.4-12.3); Monocyte (Absolute #) 1.75 x10^3/uL (0.24-0.86); Monocytes % 26.7 % (4.7-12.5); Neutrophil % 52.3 % (34.0-71.1); Platelet Count 203 x10^3/uL (182-369); Red Blood Count 3.51 x10^6/uL (3.93-5.22); Red Cell Distribution Width 13.2 % (11.7-14.4); White Blood Count 6.6 x10^3/uL (3.98-10.04)
[2024-05-07 17:27] LABS: ALBUMIN 3.7 g/dL (3.5-5.0); AMYLASE 58 U/L (30-110); ANION GAP 10.7 MEQ/L (5-15); BILIRUBIN,TOTAL 0.4 mg/dL (0.2-1.3); Calcium 8.6 mg/dL (8.4-10.2); Creatinine 1 1.43 mg/dL (0.52-1.04); EST GLOMERULAR FILTRATION RATE 37.5 ML/MIN; LIPASE 313 U/L (23-300); MAGNESIUM 1.4 mg/dL (1.6-2.3); Potassium 3.2 mmol/L (3.5-5.1); Total Protein 6.5 g/dL (6.3-8.2)
[2024-05-07 17:45] LABS: INFLUENZA A NEGATIVE (NEGATIVE); INFLUENZA B NEGATIVE (NEGATIVE); RESPIRATORY SYNCTIAL VIRUS NEGATIVE (NEGATIVE)
--- NOTE | 2024-05-07 17:46 | XRAY ---
CLINICAL HISTORY: dizziness COMPARISON: none TECHNIQUE: Axial non-contrast CT scan of the brain was performed from the skull base to the high parietal region. One of the following dose reduction techniques were utilized for this exam: Automated exposure control, adjustment of the mA and/or kV according to patient size, use of iterative reconstruction. CTDI 53.92 mGy DLP 977.56 mGy-cm FINDINGS: Brain Parenchyma: Bilateral hypodense foci are seen at both gaona radiata and centrum semi-ovale regions. Normal attenuation of the cerebellum, and brainstem. No evidence of acute infarct, hemorrhage, or mass effect. Prominent cortical sulci and both Sylvian fissures. Ventricular System: Ventricles are normal in size and configuration. No evidence of hydrocephalus or ventricular enlargement. Subarachnoid Spaces: Normal sulci and cisterns. No evidence of subarachnoid hemorrhage or extra-axial fluid collections. Cerebellum and Brainstem: Normal size and signal. No masses, lesions, or areas of abnormal signal. Orbits: Normal appearance of the globes, optic nerves, and extraocular muscles. No evidence of orbital masses or abnormal density. Sinuses: Marginal mucosal thickening is noted at both maxillary sinuses Bilateral nasal turbinectomy is seen. Mastoid Air Cells: Clear mastoid air cells. No evidence of mastoiditis. Skull: Normal skull morphology. IMPRESSION: 1. No evidence of acute infarct or hemorrhage. 2. Bilateral cerebral old lacunar infarctions. 3. Bilateral maxillary sinusitis. Electronically Signed by: Meenakshi Wilson MD. (05/07/2024 17:41:03 EST)
[2024-05-07 17:47] LABS: SARS-CoV-2 Xpert Express POSITIVE (NEGATIVE)
[2024-05-07 18:07] LABS: Appearance Clear (Clear); Bacteria None Seen /HPF (None Seen); Bilirubin Negative (Negative); Blood Negative (Negative); Epithelial Cells None Seen /HPF (None Seen); Glucose, Urine 100 mg/dL (Negative); Ketones Negative (Negative); Leukocyte Esterase Negative (Negative); Nitrite Negative (Negative); Protein,Urine Dip Trace (Negative); RBC 0-2 /HPF (0-5); Specific Gravity 1.015 (1.005-1.030); Urobilinogen 0.2 mg/dL (0.2); WBC 0-2 /HPF (0-5)
--- NOTE | 2024-05-07 18:26 | XRAY ---
CLINICAL HISTORY: cough COMPARISON: None. TECHNIQUE: An X-ray image of the chest is obtained in AP and lateral projection. FINDINGS: Pulmonary Parenchyma: Prominent bilateral bronchovascular markings. Bilateral lower lung zone faint opacities. No evidence of pleural effusion . Heart and Mediastinum: Increased cardiothoracic ratio. Bony Thorax: Spondylodegerative changes. Diffuse osteopenia. Soft Tissues: Soft tissues overlying the chest wall are unremarkable. IMPRESSION: 1. Prominent bilateral bronchovascular markings. likely congestion. 2. Bilateral lower lung zone faint opacities. possibly early inflammatory changes. 3. Cardiomegaly. 4. Correlate clinically. Further evaluation with CT is recommended if clinically warranted. [facility] ER was called at [phone] Ext#[id number] at 05:18 PM [facility] [employer]MER, 05/07/2024, and sky Ignacio RN was informed regarding the presence of Important Medical Findings on this report. Electronically Signed by: Meenkashi Wilson MD. (05/07/2024 18:21:43 EST)
[2024-05-07 19:16] LABS: Slide Review 1 YES
[2024-05-07] MEDS ORDERED: POTASSIUM CHLORIDE 20 mEq IN WATER 100ML 100 ML IV ONE (19:25)
[2024-05-07] MEDS ORDERED: Sodium Chloride 0.9% 500 ML 500 ML IV ONE (19:29)
[2024-05-07] MEDS: Sodium Chloride 0.9% 500 ML 500 ML IV SCH (19:34)
[2024-05-07] MEDS: POTASSIUM CHLORIDE 20 mEq IN WATER 100ML 20 MEQ/100 ML BAG IV ONE (19:36)
[2024-05-07] MEDS ORDERED: TYLENOL 325 MG PO PRN (21:02)
--- NOTE | 2024-05-07 22:15 | PCM.HP ---
History of Present Illness - Chief Complaint Chief Complaint: dizziness Date: 05/07/24 History of Present Illness: is a 79 year old woman with history of diabetes, hypertension, narcolepsy, GERD, and pulmonary pretension, who presents with a few days of cough, dizziness, nausea, vomiting, and dyspnea. He is accompanied by poor appetite. She is also having some difficulty with food getting stuck when she is trying to swallow. Her grandson has had a cough recently, and had to be brought to the hospital. She denies any fevers, myalgias, or chest pain. She is concerned that she is also having some worsening of left greater than right leg edema for the past 2 to 3 days. She was recently admitted for DKA, but was discharged home to complete a course of Levaquin for presumed pneumonia after she had persistent leukocytosis and of vague left basilar infiltrate on chest x- ray. Per patient, she already completed the course of antibiotics, although she was discharged 5 days ago and was given a 7-day course. - Review of Systems All Other Systems: Reviewed and Negative Medications & Allergies Home Medications: Home Medication List RX: SUMAtriptan succinate [Imitrex] 100 mg PO DAILY PRN PRN 12/19/13 [History Confirmed 05/07/24] RX: Alendronate Sodium 70 mg [Fosamax 70 MG] 70 mg PO WEEKLY 02/11/18 [History Confirmed 05/08/24] RX: Ergocalciferol (Vitamin D2) [Vitamin D2] 1.25 mg PO Q7D 02/11/18 [History Confirmed 05/07/24] RX: Paroxetine HCl 20 mg [Paxil 20 MG] 40 mg PO DAILY 02/11/18 [History Confirmed 05/07/24] RX: Famotidine [Pepcid] 40 mg PO HS 09/19/21 [History Confirmed 05/07/24] RX: Furosemide 40 mg [Lasix 40 MG] 40 mg PO BID 09/19/21 [History Confirmed 05/07/24] RX: Gabapentin 100 mg PO TID 09/19/21 [History Confirmed 05/07/24] RX: Sildenafil Citrate [Viagra] 25 mg PO TID 09/19/21 [History Confirmed 05/07/24] RX: Atorvastatin Calcium [Lipitor] 40 mg PO DAILY 02/28/24 [History Confirmed 05/08/24] RX: Clopidogrel Bisulfate [PLAVIX Tablet] 75 mg PO DAILY 02/28/24 [History Confirmed 05/08/24] RX: Dextroamphetamine/Amphetamine [Dextroamp-Amphetamin 30 mg Tab] 30 mg PO DAILY 02/28/24 [History Confirmed 05/08/24] RX: Insulin Aspart [NovoLOG Insulin] 16 unit SQ 0800,1200 02/28/24 [History Confirmed 05/07/24] RX: Insulin Aspart [NovoLOG Insulin] 24 unit SQ 1700 02/28/24 [History Confirmed 05/07/24] RX: Insulin Glargine,Hum.rec.anlog [Basaglar Kwikpen U-100] 28 unit SQ HS 02/28/24 [History Confirmed 05/07/24] RX: Metoprolol Tartrate 50 mg [Lopressor 50 MG] 50 mg PO BID 02/28/24 [History Confirmed 05/07/24] RX: Multivitamin with Minerals [Daily Vitamin Formula-Minerals] 1 tab PO DAILY 02/28/24 [History Confirmed 05/07/24] RX: Potassium Chloride 20 meq PO HS 02/28/24 [History Confirmed 05/07/24] Allergies/Adverse Reactions: Allergies Allergy/AdvReac Type Severity Reaction Status Date / Time adhesive Allergy Verified 05/07/24 15:45 Penicillins Allergy Hives Verified 05/07/24 15:45 Sulfa (Sulfonamide Allergy Rash Verified 05/07/24 15:45 Antibiotics) sulfamethoxazole Allergy Hives Verified 05/07/24 15:45 [From Bactrim] scopolamine AdvReac confusion Verified 05/07/24 15:45 - Past Medical History Past Medical History: Yes Neurological History: Migraines ENT History: Cataracts Cardiac History: High Cholesterol, Hypertension Respiratory History: Other Endocrine Medical History: Diabetes Type I, Hypothyroidism Musculoskelatal History: Arthritis GI Medical History: No Pertinent History History: No Pertinent History Pyscho-Social History: Depression Reproductive Disorders: No Pertinent History Comment: Pulmonary HTN. T-4 fracture from fall - Past Surgical History Past Surgical History: Yes Neuro Surgical History: No Pertinent History Cardiac History: No Pertinent History Respiratory Surgery: No Pertinent History GI Surgical History: No Pertinent History Genitourinary Surgical Hx: No Pertinent History Musculskeletal Surgical Hx: No Pertinent History Female Surgical History: Tubal Ligation Other Surgical History: BUNIONS REMOVED CYST REMOVED FROM BACK Significant Family History: other (Pulmonary hypertension) - Social History Smoking Status: Never smoker Exposure to second hand smoke: No Alcohol: None Drug Use: none - Social Determinants of Health Will the patient participate in the screening: Yes Do you worry about a steady place to live?: No Do you have any problems with any of the following?: No known problems In the past 12 months,have you had to go without utilities?: No Have you or anyone in your house had to go without enough: No Transportation Issues: No Has anyone in your support network made you feel unsafe?: No Does the patient want assistance with any of the above?: No - Physical Exam Vital Signs: Vital Signs - 24 hr Temp Pulse Resp BP BP Pulse Ox 05/07/24 20:40 96 05/07/24 19:30 90 122/55 93 L 05/07/24 19:00 94 H 19 125/54 95 05/07/24 18:30 94 H 18 123/52 95 05/07/24 18:00 92 H 20 117/57 95 05/07/24 17:30 82 19 114/58 92 L 05/07/24 17:00 87 20 95/50 95 05/07/24 16:52 88 20 132/50 94 L 05/07/24 15:53 90 18 113/61 95 05/07/24 15:46 99.7 F 92 H 18 137/65 96 General Appearance: no apparent distress Neurologic Exam: alert, oriented x 3, cooperative, normal mood/affect Eye Exam: PERRL/EOMI, No scleral icterus Ears, Nose, Throat Exam: moist mucous membranes Neck Exam: supple, full range of motion Respiratory Exam: normal breath sounds, lungs clear, other (On room air), No respiratory distress, No accessory muscle use Cardiovascular Exam: regular rate/rhythm, normal heart sounds, edema (Left greater than right bilateral ankle edema) Gastrointestinal/Abdomen Exam: No tenderness, No distention Extremity Exam: normal range of motion, No joint swelling Skin Exam: normal color, No rash Results - Labs Lab/Micro Results: Lab Results-Last 24 Hours 05/07/24 05/07/24 05/07/24 Range/Units 17:00 17:00 17:10 WBC 6.6 (3.98-10.04) x10^3/uL RBC 3.51 L (3.93-5.22) x10^6/uL Hgb 10.4 L (11.2-15.7) g/dL Hct 29.9 L (34.1-44.9) % MCV 85.2 (79.4-94.8) fL MCH 29.6 (25.6-32.2) pg MCHC 34.8 (32.2-35.5) g/dL RDW 13.2 (11.7-14.4) % Plt Count 203 (182-369) x10^3/uL MPV 9.7 (9.4-12.3) fL Gran % 52.3 (34.0-71.1) % Immature Gran % (Auto) 1.2 H (0.001-0.429) % Nucleat RBC Rel Count 0.0 (0.00-0.2) % Eos # (Auto) 0.09 (0.04-0.36) x10^3/uL Immature Gran # (Auto) 0.08 H (0.001-0.031) x10^3u/L Absolute Lymphs (auto) 1.17 L (1.18-3.74) x10^3/uL Absolute Monos (auto) 1.75 H (0.24-0.86) x10^3/uL Absolute Nucleated RBC 0.00 (0.00-0.012) x10^3u/L Lymphocytes % 17.8 L (19.3-51.7) % Monocytes % 26.7 H (4.7-12.5) % Eosinophils % 1.4 (0.7-5.8) % Basophils % 0.6 (0.1-1.2) % Absolute Granulocytes 3.43 (1.56-6.13) x10^3/uL Basophils # 0.04 (0.01-0.08) x10^3/uL D-Dimer (0.0-0.50) mg/L Sodium (135-145) mmol/L Potassium (3.5-5.1) mmol/L Chloride (98-107) mmol/L Carbon Dioxide (22-30) mmol/L Anion Gap (5-15) MEQ/L BUN (7-17) mg/dL Creatinine (0.52-1.04) mg/dL Estimated GFR ML/MIN Glucose (74-106) mg/dL Calcium (8.4-10.2) mg/dL Magnesium (1.6-2.3) mg/dL Total Bilirubin (0.2-1.3) mg/dL AST (14-36) U/L ALT (0-35) U/L Alkaline Phosphatase (38-126) U/L Troponin I (0.000-0.033) ng/mL Serum Total Protein (6.3-8.2) g/dL Albumin (3.5-5.0) g/dL Amylase (30-110) U/L Lipase (23-300) U/L Urine Color (Yellow) Urine Appearance (Clear) Urine pH (4.6-8.0) Ur Specific [place] (1.005-1.030) Urine Protein (Negative) Urine Glucose (UA) (Negative) mg/dL Urine Ketones (Negative) Urine Blood (Negative) Urine Nitrite (Negative) Urine Bilirubin (Negative) Urine Urobilinogen (0.2) mg/dL Ur Leukocyte Esterase (Negative) U Hyaline Cast (Auto) (0-2) /LPF Urine Microscopic RBC (0-5) /HPF Urine Microscopic WBC (0-5) /HPF Ur Epithelial Cells (None Seen) /HPF Urine Bacteria (None Seen) /HPF Urine Culture Reflexed (NO) Influenza Type A Ag NEGATIVE (NEGATIVE) Influenza Type B Ag NEGATIVE (NEGATIVE) RSV (PCR) NEGATIVE (NEGATIVE) SARS-CoV-2 (PCR) POSITIVE A (NEGATIVE) Group A Strep Antibody NOT DETECTED (NEGATIVE) Slides for Path Review YES 05/07/24 05/07/24 05/07/24 Range/Units 17:10 17:10 17:10 WBC (3.98-10.04) x10^3/uL RBC (3.93-5.22) x10^6/uL Hgb (11.2-15.7) g/dL Hct (34.1-44.9) % MCV (79.4-94.8) fL MCH (25.6-32.2) pg MCHC (32.2-35.5) g/dL RDW (11.7-14.4) % Plt Count (182-369) x10^3/uL MPV (9.4-12.3) fL Gran % (34.0-71.1) % Immature Gran % (Auto) (0.001-0.429) % Nucleat RBC Rel Count (0.00-0.2) % Eos # (Auto) (0.04-0.36) x10^3/uL Immature Gran # (Auto) (0.001-0.031) x10^3u/L Absolute Lymphs (auto) (1.18-3.74) x10^3/uL Absolute Monos (auto) (0.24-0.86) x10^3/uL Absolute Nucleated RBC (0.00-0.012) x10^3u/L Lymphocytes % (19.3-51.7) % Monocytes % (4.7-12.5) % Eosinophils % (0.7-5.8) % Basophils % (0.1-1.2) % Absolute Granulocytes (1.56-6.13) x10^3/uL Basophils # (0.01-0.08) x10^3/uL D-Dimer 2.31 H* (0.0-0.50) mg/L Sodium 132 L (135-145) mmol/L Potassium 3.2 L (3.5-5.1) mmol/L Chloride 96 L (98-107) mmol/L Carbon Dioxide 29 (22-30) mmol/L Anion Gap 10.7 (5-15) MEQ/L BUN 24 H (7-17) mg/dL Creatinine 1.43 H (0.52-1.04) mg/dL Estimated GFR 37.5 ML/MIN Glucose 110 H (74-106) mg/dL Calcium 8.6 (8.4-10.2) mg/dL Magnesium 1.4 L (1.6-2.3) mg/dL Total Bilirubin 0.40 (0.2-1.3) mg/dL AST 44 H (14-36) U/L ALT 32 (0-35) U/L Alkaline Phosphatase 81 (38-126) U/L Troponin I 0.019 (0.000-0.033) ng/mL Serum Total Protein 6.5 (6.3-8.2) g/dL Albumin 3.7 (3.5-5.0) g/dL Amylase (30-110) U/L Lipase (23-300) U/L Urine Color (Yellow) Urine Appearance (Clear) Urine pH (4.6-8.0) Ur Specific [place] (1.005-1.030) Urine Protein (Negative) Urine Glucose (UA) (Negative) mg/dL Urine Ketones (Negative) Urine Blood (Negative) Urine Nitrite (Negative) Urine Bilirubin (Negative) Urine Urobilinogen (0.2) mg/dL Ur Leukocyte Esterase (Negative) U Hyaline Cast (Auto) (0-2) /LPF Urine Microscopic RBC (0-5) /HPF Urine Microscopic WBC (0-5) /HPF Ur Epithelial Cells (None Seen) /HPF Urine Bacteria (None Seen) /HPF Urine Culture Reflexed (NO) Influenza Type A Ag (NEGATIVE) Influenza Type B Ag (NEGATIVE) RSV (PCR) (NEGATIVE) SARS-CoV-2 (PCR) (NEGATIVE) Group A Strep Antibody (NEGATIVE) Slides for Path Review 05/07/24 05/07/24 05/07/24 Range/Units 17:10 17:55 21:10 WBC (3.98-10.04) x10^3/uL RBC (3.93-5.22) x10^6/uL Hgb (11.2-15.7) g/dL Hct (34.1-44.9) % MCV (79.4-94.8) fL MCH (25.6-32.2) pg MCHC (32.2-35.5) g/dL RDW (11.7-14.4) % Plt Count (182-369) x10^3/uL MPV (9.4-12.3) fL Gran % (34.0-71.1) % Immature Gran % (Auto) (0.001-0.429) % Nucleat RBC Rel Count (0.00-0.2) % Eos # (Auto) (0.04-0.36) x10^3/uL Immature Gran # (Auto) (0.001-0.031) x10^3u/L Absolute Lymphs (auto) (1.18-3.74) x10^3/uL Absolute Monos (auto) (0.24-0.86) x10^3/uL Absolute Nucleated RBC (0.00-0.012) x10^3u/L Lymphocytes % (19.3-51.7) % Monocytes % (4.7-12.5) % Eosinophils % (0.7-5.8) % Basophils % (0.1-1.2) % Absolute Granulocytes (1.56-6.13) x10^3/uL Basophils # (0.01-0.08) x10^3/uL D-Dimer (0.0-0.50) mg/L Sodium (135-145) mmol/L Potassium (3.5-5.1) mmol/L Chloride (98-107) mmol/L Carbon Dioxide (22-30) mmol/L Anion Gap (5-15) MEQ/L BUN (7-17) mg/dL Creatinine (0.52-1.04) mg/dL Estimated GFR ML/MIN Glucose (74-106) mg/dL Calcium (8.4-10.2) mg/dL Magnesium (1.6-2.3) mg/dL Total Bilirubin (0.2-1.3) mg/dL AST (14-36) U/L ALT (0-35) U/L Alkaline Phosphatase (38-126) U/L Troponin I 0.017 (0.000-0.033) ng/mL Serum Total Protein (6.3-8.2) g/dL Albumin (3.5-5.0) g/dL Amylase 58 (30-110) U/L Lipase 313 H (23-300) U/L Urine Color Yellow (Yellow) Urine Appearance Clear (Clear) Urine pH 5.0 (4.6-8.0) Ur Specific [place] 1.015 (1.005-1.030) Urine Protein Trace A (Negative) Urine Glucose (UA) 100 A (Negative) mg/dL Urine Ketones Negative (Negative) Urine Blood Negative (Negative) Urine Nitrite Negative (Negative) Urine Bilirubin Negative (Negative) Urine Urobilinogen 0.2 (0.2) mg/dL Ur Leukocyte Esterase Negative (Negative) U Hyaline Cast (Auto) 6-10 A (0-2) /LPF Urine Microscopic RBC 0-2 (0-5) /HPF Urine Microscopic WBC 0-2 (0-5) /HPF Ur Epithelial Cells None Seen (None Seen) /HPF Urine Bacteria None Seen (None Seen) /HPF Urine Culture Reflexed YES (NO) Influenza Type A Ag (NEGATIVE) Influenza Type B Ag (NEGATIVE) RSV (PCR) (NEGATIVE) SARS-CoV-2 (PCR) (NEGATIVE) Group A Strep Antibody (NEGATIVE) Slides for Path Review - Radiology Impressions Radiology Exams & Impressions: Radiology Procedures Category Date Time Status CHEST 2 VIEWS (PA AND LAT) Stat Exams 05/07/24 16:23 Completed HEAD WITHOUT CONTRAST [CT] Stat Exams 05/07/24 16:25 Completed PULMONARY PERF VENTILATION [NUCMED] Stat Exams 05/07/24 20:52 Stop Req Chest x-ray bilateral hilar interstitial infiltrates. No consolidation. (Images personally reviewed) Assessment/Plan (1) COVID-19 Current Visit: Yes Status: Acute Assessment & Plan: 79-year-old woman with history of type 2 diabetes, hypertension, and GERD, here with pneumonia due to COVID-19 as well as acute kidney injury. ## Pneumonia, COVID-19 with infiltrates on chest x-ray and typical viral pattern, and positive COVID test that was not present 1 week prior. Onset appears to be about 3 to 4 days ago. Patient is not requiring oxygen at this time. Her D-dimer is elevated, but this is typical as an inflammatory marker with COVID-19. No indication for steroids as patient is not hypoxic. Supportive care PRN guaifenesin DM Encourage ambulation in room, and use of incentive spirometer if not able to breathe deeply Will continue her prior course of Levaquin for pneumonia from her last admission, due to end in 2 days ## Acute kidney injury baseline creatinine down to 0.8 prior to discharge, but now up slightly to 1.4. However, patient has signs of third spacing with edema in her legs. Hold home Lasix today Repeat BMP in the morning ## Acute on chronic diastolic heart failure with mild leg edema. However, did not want to pursue aggressive diuresis in the setting of COVID-19 and mild BIBI. However, COVID-19 appears to be at worst moderate. Likely plan to start IV Lasix in the next day or so as her kidney function improves ## Reported dysphagia Will place on soft diet Swallow screen ## Type 2 diabetes recently admitted with DKA. Continue Lantus 28 units QHS - continue Novolog 16 units AM and noon, and 24 units with dinner ## candidal vaginitis - likely due to recent antibiotic use - start diflucan 100 mg PO daily ## ELYSSA - on nocturnal CPAP, does not know settings - continue nocturnal CPAP, place on 7 cm H20 for now until can bring in home machine ## Hypokalemia - - give KCl 40 mEq PO x1 - repeat BMP in AM Code status: Full code Prophylaxis: Heparin Diet: soft Dispo: place in observation Code(s): U07.1 - COVID-19 Telemedicine Encounter - Telemedicine Encounter Telemedicine Encounter: "The entirety of this encounter was performed via Telemedicine" This visit was performed using real-time audio and video connection between my location and thepatients locationwith the assistance of a surrogateat the patients location. Written or verbal consent was obtained from the patient/guardian to perform this visit usings[facility] technology. Any patient questions regarding the telemedicine interaction were answered.
[2024-05-08] MEDS ORDERED: Pepcid 20 MG ONE (00:55)
[2024-05-08] MEDS: MAGNESIUM SULF 2 G/50 ML BAG 2 GM/50 ML PIGGYBACK IV SCH (01:02)
[2024-05-08] MEDS: Neurontin PO SCH (01:03)
[2024-05-08] MEDS: NON-FORMULARY ITEM (Famotidine [Pepcid] 40 MG Tablet) PO SCH (01:03)
[2024-05-08] MEDS: HUMALOG SQ PRN (01:04)
[2024-05-08] MEDS: HEPARIN 5000 UNITS/0.5 ML (HIGH RISK MED) SQ SCH (01:04)
[2024-05-08] MEDS: Klor Con PO ONE (01:04)
[2024-05-08] MEDS: Robitussin-Dm Syrup PO PRN (01:05)
[2024-05-08] MEDS: SILDENAFIL CITRATE 25 MG PO SCH (01:06)
[2024-05-08] MEDS: NON-FORMULARY ITEM (Potassium Chloride [Potassium Chloride] 10 MEQ Tab.Er.Prt) PO SCH (01:06)
[2024-05-08] MEDS: NON-FORMULARY ITEM (Insulin Glargine,Hum.Rec.Anlog [Basaglar Kwikpen U-100] 100 UNIT/ML In SQ SCH (01:07)
[2024-05-08] MEDS: Lopressor 50 MG PO SCH (01:08)
[2024-05-08] MEDS: Zofran 4 MG/2 ML VIAL IV PRN (01:35)
[2024-05-08 04:44] LABS: Absolute Neutrophil Ct (ANC) 4.86 x10^3/uL (1.56-6.13); BASOPHIL % 0.3 % (0.1-1.2); Basophil (Absolute #) 0.02 x10^3/uL (0.01-0.08); Eosinophil % 1.4 % (0.7-5.8); Hematocrit 31.5 % (34.1-44.9); Hemoglobin 10.6 g/dL (11.2-15.7); IMMATURE GRAN # 0.06 x10^3u/L (0.001-0.031); IMMATURE GRAN % 0.8 % (0.001-0.429); Lymphocyte (Absolute #) 0.98 x10^3/uL (1.18-3.74); Lymphocytes % 13.5 % (19.3-51.7); Mean Cell Volume 86.8 fL (79.4-94.8); Mean Corpuscular Hemoglobin 29.2 pg (25.6-32.2); Mean Corpuscular Hgb Concent. 33.7 g/dL (32.2-35.5); Mean Platelet Volume 9.8 fL (9.4-12.3); Monocyte (Absolute #) 1.26 x10^3/uL (0.24-0.86); Monocytes % 17.3 % (4.7-12.5); Neutrophil % 66.7 % (34.0-71.1); Platelet Count 216 x10^3/uL (182-369); Red Blood Count 3.63 x10^6/uL (3.93-5.22); Red Cell Distribution Width 13.4 % (11.7-14.4); White Blood Count 7.3 x10^3/uL (3.98-10.04)
[2024-05-08 05:04] LABS: ALBUMIN 3.5 g/dL (3.5-5.0); ANION GAP 10.3 MEQ/L (5-15); BILIRUBIN,TOTAL 0.4 mg/dL (0.2-1.3); Calcium 8.2 mg/dL (8.4-10.2); Creatinine 1 0.99 mg/dL (0.52-1.04); EST GLOMERULAR FILTRATION RATE 58.4 ML/MIN; MAGNESIUM 2.5 mg/dL (1.6-2.3); Potassium 3.2 mmol/L (3.5-5.1); Total Protein 6.2 g/dL (6.3-8.2)
[2024-05-08] MEDS ORDERED: MEDICATION INTERVENTION MC SCH ×2 (07:30)
[2024-05-08] MEDS ORDERED: NON-FORMULARY ITEM (Insulin Aspart** [Novolog Insulin**] 1 UNIT Unit) SQ SCH ×2 (08:00→17:00)
[2024-05-08] MEDS: HUMALOG SQ SCH ×2 (09:11→17:34)
[2024-05-08] MEDS: Klor Con PO SCH ×3 (09:22→22:31)
[2024-05-08] MEDS ORDERED: NON-FORMULARY ITEM (Dextroamphetamine/Amphetamine [Dextroamp-Amphetamin 30 Mg Tab] 30 MG T PO SCH (10:00)
[2024-05-08] MEDS ORDERED: LEVOFLOXACIN 750 MG PO SCH (10:00)
--- NOTE | 2024-05-08 10:18 | PCM.NOTE ---
Date and Time: 05/08/24 1013 Subjective Assessment: is a 79 year old woman with history of diabetes, hypertension, narcolepsy, GERD, and pulmonary pretension. She presented on 05/08/24 with a few days of cough, dizziness, nausea, vomiting, and dyspnea. She is also c/o poor appetite. She is also having some difficulty with food getting stuck when she is trying to swallow. Her grandson has had a cough recently, and had to be brought to the hospital. She denies any fevers, myalgias, or chest pain. She is concerned that she is also having some worsening of left greater than right leg edema for the past 2 to 3 days. She was recently admitted for DKA, but was discharged home to complete a course of Levaquin for presumed pneumonia after she had persistent leukocytosis and of vague left basilar infiltrate on chest x- ray. Per patient, she already completed the course of antibiotics, although she was discharged 5 days ago and was given a 7-day course. PO levaquin continued for pneumonia. Venous duplex ordered for BLLE edema L> R. ST to eval for swallow concerns. CT chest ordered for elevated d-dimer. K+ 3.[address] head shows sinusitis. CXR shows cardiomegaly and echo ordered. She has a neck and back brace in place from a recent fall ans states she had a thoracic and cervical fx of her spine. Pt + for COVID in the ER- since it has been > 1 week and she is not requiring oxygen COVID meds not started. - Review of Systems Constitutional: Weight Loss, No Fever, No Chills Eyes: No Symptoms Ears, Nose, & Throat: No Symptoms, Nose Congestion, Hoarse, Other (dysphagia) Respiratory: No Cough, No Short Of Breath Cardiac: Edema (BLLE), No Chest Pain, No Syncope Abdominal/Gastrointestinal: No Abdominal Pain, No Nausea, No Vomiting, No Diarrhea Genitourinary Symptoms: No Dysuria Musculoskeletal: Back Pain, Neck Pain Skin: No Rash Neurological: No Dizziness, No Focal Weakness, No Sensory Changes Psychological: No Symptoms Endocrine: No Symptoms Hematologic/Lymphatic: No Symptoms Immunological/Allergic: No Symptoms Objective Exam General Appearance: no apparent distress, alert Neurologic Exam: alert, oriented x 3, cooperative, normal mood/affect, nml cerebellar function, sensation nml, No motor deficits Skin Exam: normal color, warm, dry Eye Exam: PERRL, EOMI, eyes nml inspection Ears, Nose, Throat Exam: normal ENT inspection, pharynx normal, moist mucous membranes Neck Exam: normal inspection, non-tender, supple, full range of motion Respiratory Exam: normal breath sounds, lungs clear, No respiratory distress Cardiovascular Exam: regular rate/rhythm, normal heart sounds, edema (BLLE, L> R) Gastrointestinal/Abdomen Exam: soft, No tenderness, No mass Extremity Exam: normal inspection, normal range of motion Back Exam: normal inspection, normal range of motion, No CVA tenderness, No vertebral tenderness Pelvic Exam: deferred Rectal Exam: deferred Objective Data Vital Signs: Vital Signs - 24 hr Temp Pulse Resp BP BP Pulse Ox 05/08/24 08:00 99.6 F 89 20 136/68 94 L 05/08/24 06:00 18 05/08/24 04:00 98.8 F 98 H 18 138/72 98 05/08/24 02:00 18 05/08/24 00:00 97.9 F 110 H 18 143/64 93 L 05/07/24 21:00 100.0 F 97 H 18 137/61 95 05/07/24 20:40 96 05/07/24 19:30 90 122/55 93 L 05/07/24 19:00 94 H 19 125/54 95 05/07/24 18:30 94 H 18 123/52 95 05/07/24 18:00 92 H 20 117/57 95 05/07/24 17:30 82 19 114/58 92 L 05/07/24 17:00 87 20 95/50 95 05/07/24 16:52 88 20 132/50 94 L 05/07/24 15:53 90 18 113/61 95 05/07/24 15:46 99.7 F 92 H 18 137/65 96 Pain Assessment - Last Documented Pain Intensity 0 Intake and Output: Intake & Output 05/05/24 05/06/24 05/07/24 05/08/24 11:59 11:59 11:59 11:59 Output Total 500 Balance -500 Weight 86.7 kg Lab Results: Lab Results-Last 24 Hours 05/07/24 05/07/24 05/07/24 Range/Units 17:00 17:00 17:10 WBC 6.6 (3.98-10.04) x10^3/uL RBC 3.51 L (3.93-5.22) x10^6/uL Hgb 10.4 L (11.2-15.7) g/dL Hct 29.9 L (34.1-44.9) % MCV 85.2 (79.4-94.8) fL MCH 29.6 (25.6-32.2) pg MCHC 34.8 (32.2-35.5) g/dL RDW 13.2 (11.7-14.4) % Plt Count 203 (182-369) x10^3/uL MPV 9.7 (9.4-12.3) fL Gran % 52.3 (34.0-71.1) % Immature Gran % (Auto) 1.2 H (0.001-0.429) % Nucleat RBC Rel Count 0.0 (0.00-0.2) % Eos # (Auto) 0.09 (0.04-0.36) x10^3/uL Immature Gran # (Auto) 0.08 H (0.001-0.031) x10^3u/L Absolute Lymphs (auto) 1.17 L (1.18-3.74) x10^3/uL Absolute Monos (auto) 1.75 H (0.24-0.86) x10^3/uL Absolute Nucleated RBC 0.00 (0.00-0.012) x10^3u/L Lymphocytes % 17.8 L (19.3-51.7) % Monocytes % 26.7 H (4.7-12.5) % Eosinophils % 1.4 (0.7-5.8) % Basophils % 0.6 (0.1-1.2) % Absolute Granulocytes 3.43 (1.56-6.13) x10^3/uL Basophils # 0.04 (0.01-0.08) x10^3/uL D-Dimer (0.0-0.50) mg/L Sodium (135-145) mmol/L Potassium (3.5-5.1) mmol/L Chloride (98-107) mmol/L Carbon Dioxide (22-30) mmol/L Anion Gap (5-15) MEQ/L BUN (7-17) mg/dL Creatinine (0.52-1.04) mg/dL Estimated GFR ML/MIN Glucose (74-106) mg/dL Calcium (8.4-10.2) mg/dL Magnesium (1.6-2.3) mg/dL Total Bilirubin (0.2-1.3) mg/dL AST (14-36) U/L ALT (0-35) U/L Alkaline Phosphatase (38-126) U/L Troponin I (0.000-0.033) ng/mL Serum Total Protein (6.3-8.2) g/dL Albumin (3.5-5.0) g/dL Amylase (30-110) U/L Lipase (23-300) U/L Urine Color (Yellow) Urine Appearance (Clear) Urine pH (4.6-8.0) Ur Specific Bowie (1.005-1.030) Urine Protein (Negative) Urine Glucose (UA) (Negative) mg/dL Urine Ketones (Negative) Urine Blood (Negative) Urine Nitrite (Negative) Urine Bilirubin (Negative) Urine Urobilinogen (0.2) mg/dL Ur Leukocyte Esterase (Negative) U Hyaline Cast (Auto) (0-2) /LPF Urine Microscopic RBC (0-5) /HPF Urine Microscopic WBC (0-5) /HPF Ur Epithelial Cells (None Seen) /HPF Urine Bacteria (None Seen) /HPF Urine Culture Reflexed (NO) Influenza Type A Ag NEGATIVE (NEGATIVE) Influenza Type B Ag NEGATIVE (NEGATIVE) RSV (PCR) NEGATIVE (NEGATIVE) SARS-CoV-2 (PCR) POSITIVE A (NEGATIVE) Group A Strep Antibody NOT DETECTED (NEGATIVE) Slides for Path Review YES 05/07/24 05/07/24 05/07/24 Range/Units 17:10 17:10 17:10 WBC (3.98-10.04) x10^3/uL RBC (3.93-5.22) x10^6/uL Hgb (11.2-15.7) g/dL Hct (34.1-44.9) % MCV (79.4-94.8) fL MCH (25.6-32.2) pg MCHC (32.2-35.5) g/dL RDW (11.7-14.4) % Plt Count (182-369) x10^3/uL MPV (9.4-12.3) fL Gran % (34.0-71.1) % Immature Gran % (Auto) (0.001-0.429) % Nucleat RBC Rel Count (0.00-0.2) % Eos # (Auto) (0.04-0.36) x10^3/uL Immature Gran # (Auto) (0.001-0.031) x10^3u/L Absolute Lymphs (auto) (1.18-3.74) x10^3/uL Absolute Monos (auto) (0.24-0.86) x10^3/uL Absolute Nucleated RBC (0.00-0.012) x10^3u/L Lymphocytes % (19.3-51.7) % Monocytes % (4.7-12.5) % Eosinophils % (0.7-5.8) % Basophils % (0.1-1.2) % Absolute Granulocytes (1.56-6.13) x10^3/uL Basophils # (0.01-0.08) x10^3/uL D-Dimer 2.31 H* (0.0-0.50) mg/L Sodium 132 L (135-145) mmol/L Potassium 3.2 L (3.5-5.1) mmol/L Chloride 96 L (98-107) mmol/L Carbon Dioxide 29 (22-30) mmol/L Anion Gap 10.7 (5-15) MEQ/L BUN 24 H (7-17) mg/dL Creatinine 1.43 H (0.52-1.04) mg/dL Estimated GFR 37.5 ML/MIN Glucose 110 H (74-106) mg/dL Calcium 8.6 (8.4-10.2) mg/dL Magnesium 1.4 L (1.6-2.3) mg/dL Total Bilirubin 0.40 (0.2-1.3) mg/dL AST 44 H (14-36) U/L ALT 32 (0-35) U/L Alkaline Phosphatase 81 (38-126) U/L Troponin I 0.019 (0.000-0.033) ng/mL Serum Total Protein 6.5 (6.3-8.2) g/dL Albumin 3.7 (3.5-5.0) g/dL Amylase (30-110) U/L Lipase (23-300) U/L Urine Color (Yellow) Urine Appearance (Clear) Urine pH (4.6-8.0) Ur Specific Bowie (1.005-1.030) Urine Protein (Negative) Urine Glucose (UA) (Negative) mg/dL Urine Ketones (Negative) Urine Blood (Negative) Urine Nitrite (Negative) Urine Bilirubin (Negative) Urine Urobilinogen (0.2) mg/dL Ur Leukocyte Esterase (Negative) U Hyaline Cast (Auto) (0-2) /LPF Urine Microscopic RBC (0-5) /HPF Urine Microscopic WBC (0-5) /HPF Ur Epithelial Cells (None Seen) /HPF Urine Bacteria (None Seen) /HPF Urine Culture Reflexed (NO) Influenza Type A Ag (NEGATIVE) Influenza Type B Ag (NEGATIVE) RSV (PCR) (NEGATIVE) SARS-CoV-2 (PCR) (NEGATIVE) Group A Strep Antibody (NEGATIVE) Slides for Path Review 05/07/24 05/07/24 05/07/24 Range/Units 17:10 17:55 21:10 WBC (3.98-10.04) x10^3/uL RBC (3.93-5.22) x10^6/uL Hgb (11.2-15.7) g/dL Hct (34.1-44.9) % MCV (79.4-94.8) fL MCH (25.6-32.2) pg MCHC (32.2-35.5) g/dL RDW (11.7-14.4) % Plt Count (182-369) x10^3/uL MPV (9.4-12.3) fL Gran % (34.0-71.1) % Immature Gran % (Auto) (0.001-0.429) % Nucleat RBC Rel Count (0.00-0.2) % Eos # (Auto) (0.04-0.36) x10^3/uL Immature Gran # (Auto) (0.001-0.031) x10^3u/L Absolute Lymphs (auto) (1.18-3.74) x10^3/uL Absolute Monos (auto) (0.24-0.86) x10^3/uL Absolute Nucleated RBC (0.00-0.012) x10^3u/L Lymphocytes % (19.3-51.7) % Monocytes % (4.7-12.5) % Eosinophils % (0.7-5.8) % Basophils % (0.1-1.2) % Absolute Granulocytes (1.56-6.13) x10^3/uL Basophils # (0.01-0.08) x10^3/uL D-Dimer (0.0-0.50) mg/L Sodium (135-145) mmol/L Potassium (3.5-5.1) mmol/L Chloride (98-107) mmol/L Carbon Dioxide (22-30) mmol/L Anion Gap (5-15) MEQ/L BUN (7-17) mg/dL Creatinine (0.52-1.04) mg/dL Estimated GFR ML/MIN Glucose (74-106) mg/dL Calcium (8.4-10.2) mg/dL Magnesium (1.6-2.3) mg/dL Total Bilirubin (0.2-1.3) mg/dL AST (14-36) U/L ALT (0-35) U/L Alkaline Phosphatase (38-126) U/L Troponin I 0.017 (0.000-0.033) ng/mL Serum Total Protein (6.3-8.2) g/dL Albumin (3.5-5.0) g/dL Amylase 58 (30-110) U/L Lipase 313 H (23-300) U/L Urine Color Yellow (Yellow) Urine Appearance Clear (Clear) Urine pH 5.0 (4.6-8.0) Ur Specific Bowie 1.015 (1.005-1.030) Urine Protein Trace A (Negative) Urine Glucose (UA) 100 A (Negative) mg/dL Urine Ketones Negative (Negative) Urine Blood Negative (Negative) Urine Nitrite Negative (Negative) Urine Bilirubin Negative (Negative) Urine Urobilinogen 0.2 (0.2) mg/dL Ur Leukocyte Esterase Negative (Negative) U Hyaline Cast (Auto) 6-10 A (0-2) /LPF Urine Microscopic RBC 0-2 (0-5) /HPF Urine Microscopic WBC 0-2 (0-5) /HPF Ur Epithelial Cells None Seen (None Seen) /HPF Urine Bacteria None Seen (None Seen) /HPF Urine Culture Reflexed YES (NO) Influenza Type A Ag (NEGATIVE) Influenza Type B Ag (NEGATIVE) RSV (PCR) (NEGATIVE) SARS-CoV-2 (PCR) (NEGATIVE) Group A Strep Antibody (NEGATIVE) Slides for Path Review 05/08/24 05/08/24 Range/Units 04:41 04:41 WBC 7.3 (3.98-10.04) x10^3/uL RBC 3.63 L (3.93-5.22) x10^6/uL Hgb 10.6 L (11.2-15.7) g/dL Hct 31.5 L (34.1-44.9) % MCV 86.8 (79.4-94.8) fL MCH 29.2 (25.6-32.2) pg MCHC 33.7 (32.2-35.5) g/dL RDW 13.4 (11.7-14.4) % Plt Count 216 (182-369) x10^3/uL MPV 9.8 (9.4-12.3) fL Gran % 66.7 (34.0-71.1) % Immature Gran % (Auto) 0.8 H (0.001-0.429) % Nucleat RBC Rel Count 0.0 (0.00-0.2) % Eos # (Auto) 0.10 (0.04-0.36) x10^3/uL Immature Gran # (Auto) 0.06 H (0.001-0.031) x10^3u/L Absolute Lymphs (auto) 0.98 L (1.18-3.74) x10^3/uL Absolute Monos (auto) 1.26 H (0.24-0.86) x10^3/uL Absolute Nucleated RBC 0.00 (0.00-0.012) x10^3u/L Lymphocytes % 13.5 L (19.3-51.7) % Monocytes % 17.3 H (4.7-12.5) % Eosinophils % 1.4 (0.7-5.8) % Basophils % 0.3 (0.1-1.2) % Absolute Granulocytes 4.86 (1.56-6.13) x10^3/uL Basophils # 0.02 (0.01-0.08) x10^3/uL D-Dimer (0.0-0.50) mg/L Sodium 133 L (135-145) mmol/L Potassium 3.2 L (3.5-5.1) mmol/L Chloride 97 L (98-107) mmol/L Carbon Dioxide 29 (22-30) mmol/L Anion Gap 10.3 (5-15) MEQ/L BUN 16 (7-17) mg/dL Creatinine 0.99 (0.52-1.04) mg/dL Estimated GFR 58.4 ML/MIN Glucose 149 H (74-106) mg/dL Calcium 8.2 L (8.4-10.2) mg/dL Magnesium 2.5 H (1.6-2.3) mg/dL Total Bilirubin 0.40 (0.2-1.3) mg/dL AST 44 H (14-36) U/L ALT 29 (0-35) U/L Alkaline Phosphatase 94 (38-126) U/L Troponin I (0.000-0.033) ng/mL Serum Total Protein 6.2 L (6.3-8.2) g/dL Albumin 3.5 (3.5-5.0) g/dL Amylase (30-110) U/L Lipase (23-300) U/L Urine Color (Yellow) Urine Appearance (Clear) Urine pH (4.6-8.0) Ur Specific Bowie (1.005-1.030) Urine Protein (Negative) Urine Glucose (UA) (Negative) mg/dL Urine Ketones (Negative) Urine Blood (Negative) Urine Nitrite (Negative) Urine Bilirubin (Negative) Urine Urobilinogen (0.2) mg/dL Ur Leukocyte Esterase (Negative) U Hyaline Cast (Auto) (0-2) /LPF Urine Microscopic RBC (0-5) /HPF Urine Microscopic WBC (0-5) /HPF Ur Epithelial Cells (None Seen) /HPF Urine Bacteria (None Seen) /HPF Urine Culture Reflexed (NO) Influenza Type A Ag (NEGATIVE) Influenza Type B Ag (NEGATIVE) RSV (PCR) (NEGATIVE) SARS-CoV-2 (PCR) (NEGATIVE) Group A Strep Antibody (NEGATIVE) Slides for Path Review Radiology Exams: Radiology Procedures Category Date Time Status CHEST 2 VIEWS (PA AND LAT) Stat Exams 05/07/24 16:23 Completed CHEST WITH CONTRAST [CT] Routine Exams 05/08/24 08:06 Ordered HEAD WITHOUT CONTRAST [CT] Stat Exams 05/07/24 16:25 Completed PULMONARY PERF VENTILATION [NUCMED] Stat Exams 05/07/24 20:52 Stop Req ULTRASOUND BILATERAL LOWER EXTREMITY [VENOUS BILATERAL Exams 05/08/24 08:02 Ordered EXTREMITY] [US] Routine Assessment/Plan (1) COVID-19 Current Visit: Yes Status: Acute Assessment & Plan: - Ongoing for > 1 week now - Room air 94% - Temp 99.6 - + test in the ER Code(s): U07.1 - COVID-19 (2) Edema of both lower extremities Current Visit: Yes Status: Acute Assessment & Plan: - + Covid - Venous duplex of BLLE - Edema L > R - Continue lasix today - BNP in AM Code(s): R60.0 - LOCALIZED EDEMA (3) D-dimer, elevated Current Visit: Yes Status: Acute Assessment & Plan: - D- Dimer 2.31 - + COVID - CT chest with contrast pending. - Heparin - BLLE edema with L> R- VD pending Code(s): R79.89 - OTHER SPECIFIED ABNORMAL FINDINGS OF BLOOD CHEMISTRY (4) Difficulty swallowing Current Visit: Yes Status: Acute Assessment & Plan: - Pt reports since fall and spine fx she has had difficulty swallowing and feels as if food gets stuck in her throat. - ST eval and treat Code(s): R13.10 - DYSPHAGIA, UNSPECIFIED (5) Dizziness Current Visit: Yes Status: Resolved Assessment & Plan: - resolved since admission - 2:2 BIBI, dehydration? Code(s): R42 - DIZZINESS AND GIDDINESS (6) Hypokalemia Current Visit: Yes Status: Acute Assessment & Plan: - K+ 3.2- replaced- will recheck later today. Code(s): E87.6 - HYPOKALEMIA (7) BIBI (acute kidney injury) Current Visit: No Status: Resolved Assessment & Plan: - Resolved Code(s): N17.9 - ACUTE KIDNEY FAILURE, UNSPECIFIED (8) Back pain Current Visit: No Status: Acute Assessment & Plan: - Recent back injury from fall d/t hypoglycemic episode- has back and neck brace in place- will need to f/u OP with neurosurgery as scheduled. Code(s): M54.9 - DORSALGIA, UNSPECIFIED (9) HTN (hypertension) Current Visit: Yes Status: Chronic Assessment & Plan: - Continue home meds - BP stable Code(s): I10 - ESSENTIAL (PRIMARY) HYPERTENSION (10) Type II diabetes mellitus Current Visit: Yes Status: Chronic Assessment & Plan: - Accuchecks ac/hs - Continue humalog and lantus insulins - A1C 04/29/24 10.46- uncontrolled - Nutrition consult for better diet control - education provided on lowering A1C (11) Hoarseness Current Visit: Yes Status: Acute Assessment & Plan: - cough drops (12) Pneumonia Current Visit: Yes Status: Acute Assessment & Plan: - Continue PO Levaquin as was taking OP Code(s): J18.9 - PNEUMONIA, UNSPECIFIED ORGANISM (13) Cardiomegaly Current Visit: Yes Status: Acute Assessment & Plan: - Echo - as seen on CXR - Follow Dr. Stahl- cardiology - Reports has not had an echo in > 1 year Code(s): I51.7 - CARDIOMEGALY (14) Vaginal yeast infection Current Visit: Yes Status: Acute Assessment & Plan: - continue fluconazole Code(s): B37.31 - ACUTE CANDIDIASIS OF VULVA AND VAGINA (15) Sinusitis Current Visit: Yes Status: Acute Assessment & Plan: - Continue levaquin - Flonase - As seen on CT head VTE: Heparin Next of KIN: Child- Karlee Sandoval [phone] D/C plan: 1-2 days Code status: Full Code(s): J32.9 - CHRONIC SINUSITIS, UNSPECIFIED
--- NOTE | 2024-05-08 10:59 | XRAY ---
Indication: Bilateral lower extremity edema. Two-dimensional sonogram and color Doppler imaging major venous vessels left and right leg performed. Comparison: None No thrombus seen in the examined deep venous vessels left and right leg including greater saphenous vein. Veins demonstrate normal compressibility. Venous waveforms are normal with and without augmentation. Impression: Left and right legs negative for DVT.
[2024-05-08] MEDS: Paxil 20 MG PO SCH (11:30)
[2024-05-08] MEDS: Levofloxacin 250MG Tablet PO SCH (11:31)
[2024-05-08] MEDS: PLAVIX Tablet PO SCH (11:31)
[2024-05-08] MEDS: ZOCOR 20MG PO SCH (11:31)
[2024-05-08] MEDS: HALLS COUGH DROPS 5.4 MG MM PRN (11:32)
[2024-05-08] MEDS: Lasix 40 MG PO SCH (11:32)
[2024-05-08] MEDS: Diflucan 100 MG PO SCH (11:32)
[2024-05-08] MEDS: Levofloxacin 500 MG Tablet PO SCH (11:32)
--- NOTE | 2024-05-08 11:55 | XRAY ---
Indication: Elevated d-dimer. Positive Covid. Multiple contiguous axial images obtained through the chest using 80 cc Isovue 370 contrast and PE protocol. Comparison: October 18, 2018 Good opacification pulmonary arteries. However lung bases slightly degraded by respiration artifact limiting pulmonary embolus evaluation. No obvious pulmonary embolus. Heart borderline enlarged. Aorta again minimally arteriosclerotic without aneurysm/dissection. No pathologic mediastinal/hilar lymphadenopathy. Stable small hiatal hernia. Lungs remain hyperinflated with mild scattered peripheral fibrosis/scarring. No pulmonary mass/nodule, infiltrate, consolidation, or effusion. Bony thorax again demonstrates osteopenia T11 vertebra hemangioma, and mild degenerative changes throughout spine. New remote-appearing T4 compression fracture with approximately 50% height loss. Also old bilateral L1/left L2 transverse process fractures. Limited upper abdomen again demonstrates mild fatty liver hand tiny hepatic/splenic calcified granulomas. Impression: 1. Pulmonary embolus evaluation limited by respiration. No obvious pulmonary embolus. 2. Chronic findings including pulmonary fibrosis/scarring, hiatal hernia, fatty liver, chronic bony findings, and old granulomatous disease. 3. Remaining CT chest with contrast exam is negative.
--- NOTE | 2024-05-08 13:03 | XRAY ---
Indication: Elevated d-dimer. Positive Covid. Negative same day CT chest pulmonary embolus exam. Comparison: None Patient received 5.0 mCi technetium 99 MAA. Multiple planar images obtained. Ventilation portion not performed due to known positive Covid. Perfusion images demonstrates normal radiopharmaceutical activity bilaterally. No focal segmental/subsegmental perfusion defect. Heart is enlarged. Impression: Normal nuclear medicine perfusion scan. Incidental cardiomegaly.
[2024-05-08] MEDS: PHARMACY RENAL DOSING MC ONE (14:03)
[2024-05-08] MEDS: Flonase NASAL NS SCH (14:04)
[2024-05-08 14:27] LABS: Potassium 3.3 mmol/L (3.5-5.1)
[2024-05-08] MEDS ORDERED: Klor Con ONE (16:35)
[2024-05-08] MEDS: Lantus Insulin SQ SCH (23:30)
[2024-05-08] MEDS: Pepcid 20 MG PO SCH (23:30)
[2024-05-09 02:28] VITALS: RESP 16
[2024-05-09 06:01] LABS: Hematocrit 30.1 % (34.1-44.9); Hemoglobin 9.8 g/dL (11.2-15.7); Mean Cell Volume 88.5 fL (79.4-94.8); Mean Corpuscular Hemoglobin 28.8 pg (25.6-32.2); Mean Corpuscular Hgb Concent. 32.6 g/dL (32.2-35.5); Mean Platelet Volume 10.3 fL (9.4-12.3); Platelet Count 187 x10^3/uL (182-369); Red Cell Distribution Width 13.6 % (11.7-14.4); White Blood Count 5.6 x10^3/uL (3.98-10.04)
[2024-05-09 07:21] LABS: ANION GAP 8.7 MEQ/L (5-15); BILIRUBIN,TOTAL 0.3 mg/dL (0.2-1.3); Calcium 7.6 mg/dL (8.4-10.2); Creatinine 1 0.9 mg/dL (0.52-1.04); EST GLOMERULAR FILTRATION RATE 65.4 ML/MIN; MAGNESIUM 1.9 mg/dL (1.6-2.3); Total Protein 5.3 g/dL (6.3-8.2)
[2024-05-09 07:24] LABS: Potassium 4.5 mmol/L (3.5-5.1)
[2024-05-09 07:31] VITALS: TEMP 98.1
[2024-05-09] MEDS: Tums EX 750 MG PO SCH (09:32)
[2024-05-09 11:55] VITALS: BP 114/56; PULSE 69; O2SAT 99
[2024-05-09 13:24] LABS: 027 TOX PROD PRESUMPTIVE NEGATIVE (NEGATIVE); TOXIGENIC C. DIFF ORG NEGATIVE (NEGATIVE)
[2024-05-09] MEDS ORDERED: IMODIUM 2 MG PO PRN (13:33)
[2024-05-09] MEDS: IMODIUM 2 MG PO ONE (13:49)
--- NOTE | 2024-05-09 15:38 | PCM.DS ---
Discharge Summary Date of Admission: 05/07/24 20:35 Date of Discharge: 05/09/24 Admitting Physician: GONSALO RÍOS MD Consults: Consults on Case 05/08/24 11:26 Diet Consult [Nutritional Consult] ROUTINE Primary Care Provider: JOSÉ WILLIS DO Allergies Allergies adhesive Allergy (Verified 05/07/24 15:45) Penicillins Allergy (Verified 05/07/24 15:45) Hives Sulfa (Sulfonamide Antibiotics) Allergy (Verified 05/07/24 15:45) Rash sulfamethoxazole [From Bactrim] Allergy (Verified 05/07/24 15:45) Hives scopolamine Adverse Reaction (Verified 05/07/24 15:45) confusion Hospital Summary - Hospital Course Hospital Course: 05/08 is a 79 year old woman with history of diabetes, hypertension, narcolepsy, GERD, and pulmonary pretension. She presented on 05/08/24 with a few days of cough, dizziness, nausea, vomiting, and dyspnea. She is also c/o poor appetite. She is also having some difficulty with food getting stuck when she is trying to swallow. Her grandson has had a cough recently, and had to be brought to the hospital. She denies any fevers, myalgias, or chest pain. She is concerned that she is also having some worsening of left greater than right leg edema for the past 2 to 3 days. She was recently admitted for DKA, but was discharged home to complete a course of Levaquin for presumed pneumonia after she had persistent leukocytosis and of vague left basilar infiltrate on chest x- ray. Per patient, she already completed the course of antibiotics, although she was discharged 5 days ago and was given a 7-day course. PO levaquin continued for pneumonia. Venous duplex ordered for BLLE edema L> R. ST to eval for swallow concerns. CT chest ordered for elevated d-dimer. K+ 3.[address] head shows sinusitis. CXR shows cardiomegaly and echo ordered. She has a neck and back brace in place from a recent fall ans states she had a thoracic and cervical fx of her spine. Pt + for COVID in the ER- since it has been > 1 week and she is not requiring oxygen COVID meds not started. 05/09 Pt resting in bed. She is feeling better. Diarrhea resolved. C-diff negative. Swallow eval non-concerning. CT chest negative for PE. BLLE venous duplex negative for DVT. Nutrition consulted for elevated A1C. Educated on better A1C control and care home side effects if she does not. Continue Tums BID for low calcium. Will need rechecked OP with PCP. She denies any further concerns at this time. Discussed isolation concerns regarding COVID. - Vitals & Intake/Output Vital Signs: Vital Signs Temperature 98.1 F 05/09/24 11:54 Pulse Rate 69 05/09/24 11:54 Respiratory Rate 16 05/09/24 11:54 Blood Pressure 114/56 05/09/24 11:54 O2 Sat by Pulse Oximetry 99 05/09/24 11:54 Intake & Output: Intake & Output 05/07/24 05/08/24 05/09/24 05/10/24 11:59 11:59 11:59 11:59 Intake Total 1080 480 Output Total 600 800 Balance -600 280 480 Weight 86.7 kg - Lab Result Diagrams: 05/09/24 05:49 05/09/24 05:49 Lab Results-Last 24 Hrs: Lab Results-Last 24 Hours 05/09/24 05/09/24 05/09/24 Range/Units 05:49 05:49 11:50 WBC 5.6 (3.98-10.04) x10^3/uL RBC 3.40 L (3.93-5.22) x10^6/uL Hgb 9.8 L (11.2-15.7) g/dL Hct 30.1 L (34.1-44.9) % MCV 88.5 (79.4-94.8) fL MCH 28.8 (25.6-32.2) pg MCHC 32.6 (32.2-35.5) g/dL RDW 13.6 (11.7-14.4) % Plt Count 187 (182-369) x10^3/uL MPV 10.3 (9.4-12.3) fL Sodium 132 L (135-145) mmol/L Potassium 4.5 D (3.5-5.1) mmol/L Chloride 100 (98-107) mmol/L Carbon Dioxide 28 (22-30) mmol/L Anion Gap 8.7 (5-15) MEQ/L BUN 12 (7-17) mg/dL Creatinine 0.90 (0.52-1.04) mg/dL Estimated GFR 65.4 ML/MIN Glucose 212 H (74-106) mg/dL Calcium 7.6 L (8.4-10.2) mg/dL Magnesium 1.9 (1.6-2.3) mg/dL Total Bilirubin 0.30 (0.2-1.3) mg/dL AST 45 H (14-36) U/L ALT 26 (0-35) U/L Alkaline Phosphatase 84 (38-126) U/L NT-Pro-B Natriuret Pep 1940 (<300) pg/mL Serum Total Protein 5.3 L (6.3-8.2) g/dL Albumin 3.0 L (3.5-5.0) g/dL C. difficile Screen NEGATIVE (NEGATIVE) C.difficile [id number] PRESUMPTIVE NEGATIVE (NEGATIVE) Micro Results-Entire Visit: Microbiology 05/07/24 17:55 Urine Culture - Final Urine, Catheterized NO GROWTH 05/09/24 Unknown Stool Culture Result 1 - Final Stool Not Reportable Stool Culture Result 2 - Final Not Reportable Stool Culture Result 3 - Final Not Reportable Stool Culture Result 4 - Final Not Reportable Stool Culture Organism Suscept - Final Not Reportable Campylobacter Result 1 - Final Not Reportable Campylobacter Result 2 - Final Not Reportable Campylobactor Result 3 - Final Not Reportable Campylobacter Result 4 - Final Not Reportable Campylobactor Susceptibility - Final Not Reportable Accuchecks Date 05/09/24 Date 05/09/24 Date 05/08/24 Time 11:53 Time 07:29 - Radiology Exams Ordered Rad Exams-Entire Visit: Radiology Procedures Category Date Time Status CHEST 2 VIEWS (PA AND LAT) Stat Exams 05/07/24 16:23 Completed CHEST WITH CONTRAST [CT] Routine Exams 05/08/24 08:06 Completed ECHO W/2D AND DOPPLER [US] Routine Exams 05/08/24 13:46 Taken HEAD WITHOUT CONTRAST [CT] Stat Exams 05/07/24 16:25 Completed PULMONARY PERF PARTICULATE [NUCMED] Stat Exams 05/08/24 20:52 Completed ULTRASOUND BILATERAL LOWER EXTREMITY [VENOUS BILATERAL Exams 05/08/24 08:02 Completed EXTREMITY] [US] Routine - Procedures and Test Procedures and Tests throughout Hospitalization: Therapy Orders & Screens 05/07/24 23:45 BiPap/CPAP ROUTINE Comment: Diagnosis: dizziness 05/08/24 08:01 Speech Therapy Eval & Treat [ Eval & Angela ( Order)] .as ordered Comment: Physician Instructions: Reason For Exam: Evaluate: Yes Treat: Yes Reason for Eval: difficulty swallowing Diagnosis: dizziness Discharge Exam General Appearance: no apparent distress, alert Neurologic Exam: alert, oriented x 3, cooperative, normal mood/affect, nml cerebellar function, sensation nml, No motor deficits Eye Exam: PERRL, EOMI, eyes nml inspection Ears, Nose, Throat Exam: normal ENT inspection, pharynx normal, moist mucous membranes Neck Exam: normal inspection, non-tender, supple, full range of motion Respiratory Exam: normal breath sounds, lungs clear, No respiratory distress Cardiovascular Exam: regular rate/rhythm, normal heart sounds Gastrointestinal/Abdomen Exam: soft, No tenderness, No mass Pelvic Exam: deferred Rectal Exam: deferred Back Exam: normal inspection, normal range of motion, No CVA tenderness, No vertebral tenderness Extremity Exam: normal inspection, normal range of motion Skin Exam: normal color, warm, dry Final Diagnosis/Problem List - Final Discharge Diagnosis/Problem (1) COVID-19 Current Visit: Yes Status: Acute Code(s): U07.1 - COVID-19 (2) Edema of both lower extremities Current Visit: Yes Status: Acute Code(s): R60.0 - LOCALIZED EDEMA (3) D-dimer, elevated Current Visit: Yes Status: Acute Code(s): R79.89 - OTHER SPECIFIED ABNORMAL FINDINGS OF BLOOD CHEMISTRY (4) Difficulty swallowing Current Visit: Yes Status: Acute Code(s): R13.10 - DYSPHAGIA, UNSPECIFIED (5) Dizziness Current Visit: Yes Status: Resolved Code(s): R42 - DIZZINESS AND GIDDINESS (6) Hypokalemia Current Visit: Yes Status: Acute Code(s): E87.6 - HYPOKALEMIA (7) BIBI (acute kidney injury) Current Visit: No Status: Resolved Code(s): N17.9 - ACUTE KIDNEY FAILURE, UNSPECIFIED (8) Back pain Current Visit: No Status: Acute Code(s): M54.9 - DORSALGIA, UNSPECIFIED (9) HTN (hypertension) Current Visit: Yes Status: Chronic Code(s): I10 - ESSENTIAL (PRIMARY) HYPERT ENSION (10) Type II diabetes mellitus Current Visit: Yes Status: Chronic (11) Hoarseness Current Visit: Yes Status: Acute (12) Pneumonia Current Visit: Yes Status: Acute Code(s): J18.9 - PNEUMONIA, UNSPECIFIED ORGANISM (13) Cardiomegaly Current Visit: Yes Status: Acute Code(s): I51.7 - CARDIOMEGALY (14) Vaginal yeast infection Current Visit: Yes Status: Acute Code(s): B37.31 - ACUTE CANDIDIASIS OF VULVA AND VAGINA (15) Sinusitis Current Visit: Yes Status: Acute Assessment & Plan: (1) COVID-19 Current Visit: Yes Status: Acute Assessment & Plan: - Ongoing for > 1 week now - Room air 94% - Temp 99.6 - + test in the ER Code(s): U07.1 - COVID-19 (2) Edema of both lower extremities Current Visit: Yes Status: Acute Assessment & Plan: - + Covid - Venous duplex of BLLE- negative for DVT - Edema L > R - Continue lasix today - BNP 1940 Code(s): R60.0 - LOCALIZED EDEMA (3) D-dimer, elevated Current Visit: Yes Status: Acute Assessment & Plan: - D- Dimer 2.31 - + COVID - CT chest with contrast pending. - Heparin - BLLE edema with L> R- VD pending Code(s): R79.89 - OTHER SPECIFIED ABNORMAL FINDINGS OF BLOOD CHEMISTRY (4) Difficulty swallowing Current Visit: Yes Status: Acute Assessment & Plan: - Pt reports since fall and spine fx she has had difficulty swallowing and feels as if food gets stuck in her throat. - ST eval and treat- non-concerning Code(s): R13.10 - DYSPHAGIA, UNSPECIFIED (5) Dizziness Current Visit: Yes Status: Resolved Assessment & Plan: - resolved since admission - 2:2 BIBI, dehydration? Code(s): R42 - DIZZINESS AND GIDDINESS (6) Hypokalemia Current Visit: Yes Status: Acute Assessment & Plan: - K+ 3.2- replaced- will recheck later today. 05/09 - resolved Code(s): E87.6 - HYPOKALEMIA (7) BIBI (acute kidney injury) Current Visit: No Status: Resolved Assessment & Plan: - Resolved Code(s): N17.9 - ACUTE KIDNEY FAILURE, UNSPECIFIED (8) Back pain Current Visit: No Status: Acute Assessment & Plan: - Recent back injury from fall d/t hypoglycemic episode- has back and neck brace in place- will need to f/u OP with neurosurgery as scheduled. Code(s): M54.9 - DORSALGIA, UNSPECIFIED (9) HTN (hypertension) Current Visit: Yes Status: Chronic Assessment & Plan: - Continue home meds - BP stable Code(s): I10 - ESSENTIAL (PRIMARY) HYPERTENSION (10) Type II diabetes mellitus Current Visit: Yes Status: Chronic Assessment & Plan: - Accuchecks ac/hs - Continue humalog and lantus insulins - A1C 04/29/24 10.46- uncontrolled - Nutrition consult for better diet control - education provided on lowering A1C (11) Hoarseness Current Visit: Yes Status: Acute Assessment & Plan: - cough drops (12) Pneumonia Current Visit: Yes Status: Acute Assessment & Plan: - Continue PO Levaquin as was taking OP Code(s): J18.9 - PNEUMONIA, UNSPECIFIED ORGANISM (13) Cardiomegaly Current Visit: Yes Status: Acute Assessment & Plan: - Echo - pending- can f/u OP with cardiology - as seen on CXR - Follow Dr. Stahl- cardiology - Reports has not had an echo in > 1 year Code(s): I51.7 - CARDIOMEGALY (14) Vaginal yeast infection Current Visit: Yes Status: Acute Assessment & Plan: - continue fluconazole Code(s): B37.31 - ACUTE CANDIDIASIS OF VULVA AND VAGINA (15) Sinusitis Current Visit: Yes Status: Acute Assessment & Plan: - Continue Levaquin - Flonase - As seen on CT head Code(s): J32.9 - CHRONIC SINUSITIS, UNSPECIFIED - Discharge Discharge Date: 05/09/24 Disposition: Home, Self-Care Condition: Stable Prescriptions: Continue SUMAtriptan succinate [Imitrex] 100 mg PO DAILY PRN PRN PRN Reason: MIGRAINES Paroxetine HCl 20 mg [Paxil 20 MG] 40 mg PO DAILY Ergocalciferol (Vitamin D2) [Vitamin D2] 1.25 mg PO Q7D Alendronate Sodium 70 mg [Fosamax 70 MG] 70 mg PO WEEKLY Sildenafil Citrate [Viagra] 25 mg PO TID Gabapentin 100 mg PO TID Furosemide 40 mg [Lasix 40 MG] 40 mg PO BID Famotidine [Pepcid] 40 mg PO HS Multivitamin with Minerals [Daily Vitamin Formula-Minerals] 1 tab PO DAILY Insulin Aspart [NovoLOG Insulin] 16 unit SQ 0800,1200 Atorvastatin Calcium [Lipitor] 40 mg PO DAILY Insulin Glargine,Hum.rec.anlog [Basaglar Kwikpen U-100] 28 unit SQ HS Metoprolol Tartrate 50 mg [Lopressor 50 MG] 50 mg PO BID Potassium Chloride 20 meq PO HS Clopidogrel Bisulfate [PLAVIX Tablet] 75 mg PO DAILY Dextroamphetamine/Amphetamine [Dextroamp-Amphetamin 30 mg Tab] 30 mg PO DAILY Insulin Aspart [NovoLOG Insulin] 24 unit SQ 1700 Additional Instructions: Take Tums tabs twice daily until you follow up with PCP for low calcium. You can take OTC Immodium OTC after each loose stool for diarrhea if needed, follow label directions and do not surpass daily dose limit. Follow up with: JOSÉ WILLIS DO [Primary Care Provider] - 05/15/24 11:15 am HAILEY DURAN [NON-STAFF PHY W/O PRIVILEGES] -
== END 2024-05-09 17:05 | disposition home or self-care (01) ==
LOC: ED 15:23 → MED SURG 20:35
PROVIDERS: ADMIT Internal Medicine; ATTEND Internal Medicine
DX: U07.1 COVID-19 (principal); R60.0 Localized edema; R79.89 Other specified abnormal findings of blood chemistry; R13.10 Dysphagia, unspecified; R42 Dizziness and giddiness; E87.6 Hypokalemia; N17.9 Acute kidney failure, unspecified; M54.9 Dorsalgia, unspecified; I10 Essential (primary) hypertension; E11.9 Type 2 diabetes mellitus without complications; R49.0 Dysphonia; J18.9 Pneumonia, unspecified organism; I51.7 Cardiomegaly; B37.31 Acute candidiasis of vulva and vagina; J32.9 Chronic sinusitis, unspecified; Z79.899 Other long term (current) drug therapy; Z79.01 Long term (current) use of anticoagulants
CPT/HCPCS: 0241U; 36415; 70450; 71046; 71260; 78580; 80053; 81001; 82150; 83690; 83735; 83880; 84132; 84484; 85025; 85027; 85379; 87045; 87046; 87086; 87427; 87493; 87651; 93005; 93041; 93306; 93970; 94660; 96365; 96366; 99284; A9540; Q3014; J1644; J1817; J2405; J3480; A9270-GY; J3475